=== PATIENT | male | born 1960 ===

== ENCOUNTER 2018-05-15 16:32 | Inpatient (IN) | payer MEDICARE, MEDICAID ==
[2018-05-15 16:48] VITALS: BMI 43.1
--- NOTE | 2018-05-15 17:34 | C.PDOC ---
History Of Present Illness 57 y/o male with history of HTN, Heart disease with 11 stents and High cholesterol presents to ED sent by Dr. Chu for evaluation of increased confusion. As per patient uses AC remote to turn off tv, is off balance when walking and has redness to right lower leg. Patient denies recent trauma, fever, vomiting, diarrhea, abdominal pain or any other complaints at this time. Time Seen by Provider: 05/15/18 16:50 Chief Complaint (Nursing): Altered Mental Status History Per: Patient History/Exam Limitations: None Onset/Duration Of Symptoms: Days Current Symptoms Are (Timing): Still Present Past Medical History Reviewed: Historical Data, Nursing Documentation, Vital Signs Vital Signs: Last Vital Signs Temp 98.9 F 05/15/18 16:48 Pulse 90 05/15/18 16:48 Resp 18 05/15/18 16:48 BP 130/83 05/15/18 16:48 Pulse Ox 98 05/15/18 18:31 - Medical History PMH: Asthma, CHF, Diabetes, Fractures (fx tibia fibula l,right shoulder sx,rib fx), HTN, Hypercholesterolemia, Hypothyroidism, Peripheral Edema Surgical History: Appendectomy, Coronary Stent (x10 +1 = 11 stents.) - [facility] Procedures APPLICATION OF SPLINT (10/30/13) CORONAR ARTERIOGR-2 CATH (11/15/14) INSERTION OF ONE VASCULAR STENT (11/15/14) INSERTION OF THREE VASCULAR STENTS (08/25/14) INSRT OF DRUG-ELUTING CORON ARTERY STENTS(S) (11/15/14) LEFT HEART CARDIAC CATH (11/15/14) LT HEART ANGIOCARDIOGRAM (11/15/14) PERCUTANEOUS TRANSLUMINAL CORONARY ANGIOPLASTY [PTCA] (11/15/14) PROCEDURE ON SINGLE VESSEL (11/15/14) PROCEDURE ON TWO VESSELS (08/25/14) RT HEART CARDIAC CATH (11/02/04) Family History: States: CAD - Social History Hx Tobacco Use: No Hx Alcohol Use: No Hx Substance Use: No - Immunization History Hx Tetanus Toxoid Vaccination: No Hx Influenza Vaccination: Yes Review Of Systems Musculoskeletal: Positive for: Leg Pain (redness) Neurological: Positive for: Confusion Physical Exam - Physical Exam Appears: Non-toxic, No Acute Distress Skin: Warm, Dry, No Rash, Other (hyperpigmentation and erythema to right lower tib/fib region) Head: Atraumatic, Normacephalic Eye(s): bilateral: Normal Inspection Oral Mucosa: Moist Cardiovascular: Rhythm Regular Respiratory: Normal Breath Sounds, No Rales, No Rhonchi, No Wheezing Gastrointestinal/Abdominal: Soft, No Tenderness, No Guarding, No Rebound Pulses: Right Dorsalis Pedis: Normal Neurological/Psych: Oriented x3, Normal Speech, Normal Cognition, Normal Motor, Normal Sensation ED Course And Treatment - Laboratory Results Result Diagrams: 05/15/18 18:00 05/15/18 18:00 ECG: Interpreted By Me, Viewed By Me ECG Rhythm: Sinus Rhythm Interpretation Of ECG: NSR @88 BPM, Q-wave on lead 3 AVF Rate From EC (BPM) O2 Sat by Pulse Oximetry: 98 (RA) Pulse Ox Interpretation: Normal Medical Decision Making Medical Decision Making: Assessment: Confusion, Cellulitis Progress: Spoke to Dr. Bergeron will admit patient Disposition Discussed With DrCharley: Ventura Bergeron Jr. Doctor Will See Patient In The: Hospital Counseled Patient/Family Regarding: Studies Performed, Diagnosis - Disposition Disposition: HOSPITALIZED Disposition Time: 18:30 Condition: FAIR Forms: [facility] (Kazakh) - Clinical Impression Clinical Impression: Confusion, Cellulitis - Scribe Statement The provider has reviewed the documentation as recorded by the Scribjenny Sykes All medical record entries made by the Masonibjenny were at my direction and personally dictated by me. I have reviewed the chart and agree that the record accurately reflects my personal performance of the history, physical exam, medical decision making, and the department course for this patient. I have also personally directed, reviewed, and agree with the discharge instructions and disposition.
--- NOTE | 2018-05-15 17:58 | RAD ---
HISTORY: SOB COMPARISON: None available. TECHNIQUE: Chest PA and lateral FINDINGS: Examination limited by habitus. LUNGS: Prominent interstitial markings may reflect vascular crowding due to hypoinflation versus mild pulmonary venous congestion. No focal consolidation. Please note that chest x-ray has limited sensitivity for the detection of pulmonary masses. PLEURA: No significant pleural effusion identified. No definite pneumothorax . CARDIOVASCULAR: Heart size appears within normal limits. OSSEOUS STRUCTURES: Degenerative changes. VISUALIZED UPPER ABDOMEN: Unremarkable. OTHER FINDINGS: None. IMPRESSION: Prominent interstitial markings may reflect vascular crowding due to hypoinflation versus mild pulmonary venous congestion.
[2018-05-15 18:04] LABS: BASO % 0.7 % (0.0-2.0); EOS # 0.1 K/uL (0.0-0.7); LYMPH # 1.6 K/uL (1.0-4.3); MONO # 0.8 K/uL (0.0-0.8); WHITE BLOOD COUNT 5.9 K/uL (4.8-10.8)
--- NOTE | 2018-05-15 18:07 | RAD ---
PROCEDURE: Right Foot Radiographs. HISTORY: redness to foot COMPARISON: None available. FINDINGS: BONES: Degenerative changes. No acute displaced fracture. JOINTS: No dislocation. SOFT TISSUES: Soft tissue swelling. No evidence of radiopaque foreign body. OTHER FINDINGS: None. IMPRESSION: Degenerative changes. Soft tissue swelling.
[2018-05-15 18:11] LABS: EOS % 1.8 % (0.0-4.0); HEMOGLOBIN 13.7 g/dL (12.0-18.0); LYMPH % 27.4 % (20.0-40.0); MEAN CELL VOLUME 91.5 fL (80.0-94.0); MEAN CORPUSCULAR HEMOGLOBIN 32.1 pg (27.0-31.0); MEAN CORPUSCULAR HGB CONC 35.1 g/dL (33.0-37.0); MEAN PLATELET VOLUME 9.6 fL (7.2-11.7); MONO % 13.3 % (0.0-10.0); NEUT # 3.4 K/uL (1.8-7.0); NEUT % 56.8 % (50.0-75.0); NRBC % 0.1 % (0.0-2.0); RBC 4.28 Mil/uL (4.40-5.90); RED CELL DISTRIBUTION WIDTH 14.3 % (11.5-14.5)
--- NOTE | 2018-05-15 18:12 | RAD ---
PROCEDURE: Radiographs of the right tibia and fibula. HISTORY: redness to foot COMPARISON: None available. TECHNIQUE: Frontal and lateral views obtained. FINDINGS: BONES: No acute displaced fracture. JOINT SPACES: No dislocation. OTHER FINDINGS: Soft tissue edema. No evidence of radiopaque foreign body. IMPRESSION: Soft tissue edema. No acute displaced fracture identified. If symptoms persist, or if there is continued clinical concern, x-ray follow-up in 7-10 days should be considered.
[2018-05-15 18:16] LABS: ALB/GLOB RATIO 0.8 (1.0-2.1); ALBUMIN 3.5 g/dL (3.5-5.0); ALT/SGPT 48 U/L (21-72); AST/SGOT 61 U/L (17-59); BLOOD UREA NITROGEN 9 mg/dL (9-20); CALCIUM 8.9 mg/dl (8.6-10.4); GFR NON-AFRICAN AMERICAN > 60
--- NOTE | 2018-05-15 18:16 | CT ---
Date of service: 05/15/2018 PROCEDURE: CT HEAD WITHOUT CONTRAST. HISTORY: confusion COMPARISON: None available. TECHNIQUE: Axial computed tomography images were obtained through the head/brain without intravenous contrast. Radiation dose: Total exam DLP = 973.93 mGy-cm. This CT exam was performed using one or more of the following dose reduction techniques: Automated exposure control, adjustment of the mA and/or kV according to patient size, and/or use of iterative reconstruction technique. FINDINGS: HEMORRHAGE: No intracranial hemorrhage. BRAIN: No mass effect or edema. Dense intracranial atherosclerosis. The burns-white matter differentiation appears intact. Please note that MRI with diffusion imaging is more sensitive in the detection of acute ischemic event. VENTRICLES: No hydrocephalus. CALVARIUM: Unremarkable. PARANASAL SINUSES: Unremarkable as visualized. No significant inflammatory changes. MASTOID AIR CELLS: Unremarkable as visualized. No inflammatory changes. OTHER FINDINGS: None. IMPRESSION: No acute intracranial pathology identified.
[2018-05-15 18:28] LABS: B-TYPE NATRIURETIC PEPTIDE 136 pg/mL (0-900)
[2018-05-15 19:26] LABS: URIC ACID 3.6 mg/dL (3.5-8.5)
[2018-05-15 19:28] LABS: SQUAMOUS EPITHIAL < 1 /hpf (0-5); URINE BILIRUBIN NEGATIVE (NEGATIVE); URINE BLOOD NEGATIVE (NEGATIVE); URINE CLARITY Clear (Clear); URINE COLOR Yellow (YELLOW); URINE GLUCOSE (UA) 3+ mg/dL (Normal); URINE LEUKOCYTE ESTERASE NEG Leu/uL (Negative); URINE PROTEIN NEGATIVE (NEGATIVE)
[2018-05-15 19:53] LABS: HEPATITIS B SURFACE AG Negative (NEGATIVE)
[2018-05-15 19:58] LABS: HEPATITIS A IGM NEGATIVE (NEGATIVE); HEPATITIS B CORE AB NEGATIVE (NEGATIVE)
[2018-05-15 20:10] LABS: HEPATITIS C ANTIBODY NEGATIVE (NEGATIVE)
[2018-05-15 20:23] LABS: BARBITURATES, UR NEGATIVE (NEGATIVE); BENZODIAZEPINES, UR NEGATIVE (NEGATIVE); OPIATES, UR NEGATIVE (NEGATIVE); PHENCYCLIDINE, UR NEGATIVE (NEGATIVE)
--- NOTE | 2018-05-15 20:39 | CP.PCM.CON ---
History of Present Illness - History of Present Illness History of Present Illness: 57 y/o male with history of HTN, Heart disease with 11 stents and High cholesterol presents to ED sent by Dr. Chu for evaluation of increased confusion. As per patient uses AC remote to turn off tv, is off balance when walking and has redness to right lower leg. Patient denies recent trauma, fever, vomiting, diarrhea, abdominal pain or any other complaints at this time. referred for id eval for cellulitis r/o sepsis cultures sent IV antibiotics started ammonia level elevated extensive hx - Medical History PMH: Asthma, CHF, Diabetes, Fractures (fx tibia fibula l,right shoulder sx,rib fx), HTN, Hypercholesterolemia, Hypothyroidism, Peripheral Edema Surgical History: Appendectomy, Coronary Stent (x10 +1 = 11 stents.) - [facility] Procedures APPLICATION OF SPLINT (10/30/13) CORONAR ARTERIOGR-2 CATH (11/15/14) INSERTION OF ONE VASCULAR STENT (11/15/14) INSERTION OF THREE VASCULAR STENTS (08/25/14) INSRT OF DRUG-ELUTING CORON ARTERY STENTS(S) (11/15/14) LEFT HEART CARDIAC CATH (11/15/14) LT HEART ANGIOCARDIOGRAM (11/15/14) PERCUTANEOUS TRANSLUMINAL CORONARY ANGIOPLASTY [PTCA] (11/15/14) PROCEDURE ON SINGLE VESSEL (11/15/14) PROCEDURE ON TWO VESSELS (08/25/14) RT HEART CARDIAC CATH (11/02/04) Past Patient History - Infectious Disease Hx of Infectious Diseases: None - Tetanus Immunizations Tetanus Immunization: Unknown - Past Medical History & Family History Past Medical History?: Yes - Past Social History Smoking Status: Never Smoked - CARDIAC Hx Congestive Heart Failure: Yes Hx Hypercholesterolemia: Yes Hx Hypertension: Yes Hx Peripheral Edema: Yes - PULMONARY Hx Asthma: Yes - NEUROLOGICAL Hx Paralysis: No - HEENT Hx HEENT Problems: No - RENAL Hx Chronic Kidney Disease: No - ENDOCRINE/METABOLIC Hx Hypothyroidism: Yes - HEMATOLOGICAL/ONCOLOGICAL Hx Blood Transfusions: No Hx Blood Transfusion Reaction: No - INTEGUMENTARY Hx Dermatological Problems: No Other/Comment: ble multiple skin discolorations - MUSCULOSKELETAL/RHEUMATOLOGICAL Hx Fractures: Yes (fx tibia fibula l,right shoulder sx,rib fx) - GASTROINTESTINAL Hx Gastrointestinal Disorders: Yes (obese) - GENITOURINARY/GYNECOLOGICAL Hx Genitourinary Disorders: No - PSYCHIATRIC Hx Substance Use: No - SURGICAL HISTORY Hx Appendectomy: Yes Hx Coronary Stent: Yes (x10 +1 = 11 stents.) - ANESTHESIA Hx Anesthesia: Yes Hx Anesthesia Reactions: No Hx Malignant Hyperthermia: No Meds Allergies/Adverse Reactions: Allergies Allergy/AdvReac Type Severity Reaction Status Date / Time No Known Allergies Allergy Verified 05/15/18 16:45 Results - Vital Signs Recent Vital Signs: Last Vital Signs Temp 98.3 F 05/15/18 20:32 Pulse 83 05/15/18 20:32 Resp 16 05/15/18 20:32 BP 139/71 05/15/18 20:32 Pulse Ox 98 05/15/18 20:32 - Labs Result Diagrams: 05/15/18 18:00 05/15/18 18:00 Labs: Laboratory Results - last 24 hr 05/15/18 05/15/18 05/15/18 18:00 18:00 18:00 WBC 5.9 RBC 4.28 L Hgb 13.7 Hct 39.2 MCV 91.5 MCH 32.1 H MCHC 35.1 RDW 14.3 Plt Count 108 L MPV 9.6 Neut % (Auto) 56.8 Lymph % (Auto) 27.4 [place] % (Auto) 13.3 H Eos % (Auto) 1.8 Baso % (Auto) 0.7 Neut # (Auto) 3.4 Lymph # (Auto) 1.6 [place] # (Auto) 0.8 Eos # (Auto) 0.1 Baso # (Auto) 0.0 ESR 72 H Sodium 140 Potassium 4.6 Chloride 109 H Carbon Dioxide 23 Anion Gap 13 BUN 9 Creatinine 0.7 L Est GFR ( Amer) > 60 Est GFR (Non-Af Amer) > 60 Random Glucose 264 H Uric Acid Calcium 8.9 Total Bilirubin 1.1 AST 61 H ALT 48 Alkaline Phosphatase 105 Ammonia 96 H Troponin I < 0.0120 C-Reactive Protein NT-Pro-B Natriuret Pep 136 Total Protein 7.8 Albumin 3.5 Globulin 4.3 H Albumin/Globulin Ratio 0.8 L Triglycerides Cholesterol LDL Cholesterol Direct HDL Cholesterol TSH 3rd Generation 1.27 Urine Color Urine Clarity Urine pH Ur Specific [place] Urine Protein Urine Glucose (UA) Urine Ketones Urine Blood Urine Nitrate Urine Bilirubin Urine Urobilinogen Ur Leukocyte Esterase Urine WBC (Auto) Urine RBC (Auto) Ur Squamous Epith Cells Urine Opiates Screen Urine Methadone Screen Ur Barbiturates Screen Ur Phencyclidine Scrn Ur Amphetamines Screen U Benzodiazepines Scrn U Oth Cocaine Metabols U Cannabinoids Screen Alcohol, Quantitative Hepatitis A IgM Ab Hep Bs Antigen Hep B Core IgM Ab Hepatitis C Antibody 05/15/18 05/15/18 05/15/18 18:44 18:44 19:12 WBC RBC Hgb Hct MCV MCH MCHC RDW Plt Count MPV Neut % (Auto) Lymph % (Auto) [place] % (Auto) Eos % (Auto) Baso % (Auto) Neut # (Auto) Lymph # (Auto) [place] # (Auto) Eos # (Auto) Baso # (Auto) ESR Sodium Potassium Chloride Carbon Dioxide Anion Gap BUN Creatinine Est GFR ( Amer) Est GFR (Non-Af Amer) Random Glucose Uric Acid 3.6 Calcium Total Bilirubin AST ALT Alkaline Phosphatase Ammonia Troponin I C-Reactive Protein 14.50 H NT-Pro-B Natriuret Pep Total Protein Albumin Globulin Albumin/Globulin Ratio Triglycerides 105 Cholesterol 172 LDL Cholesterol Direct 100 HDL Cholesterol 37 TSH 3rd Generation Urine Color Yellow Urine Clarity Clear Urine pH 6.0 Ur Specific [place] 1.021 Urine Protein Negative Urine Glucose (UA) 3+ H Urine Ketones Negative Urine Blood Negative Urine Nitrate Negative Urine Bilirubin Negative Urine Urobilinogen 4.0 Ur Leukocyte Esterase Neg Urine WBC (Auto) < 1 Urine RBC (Auto) 1 Ur Squamous Epith Cells < 1 Urine Opiates Screen Urine Methadone Screen Ur Barbiturates Screen Ur Phencyclidine Scrn Ur Amphetamines Screen U Benzodiazepines Scrn U Oth Cocaine Metabols U Cannabinoids Screen Alcohol, Quantitative Hepatitis A IgM Ab Negative Hep Bs Antigen Negative Hep B Core IgM Ab Negative Hepatitis C Antibody Negative 05/15/18 05/15/18 19:12 19:13 WBC RBC Hgb Hct MCV MCH MCHC RDW Plt Count MPV Neut % (Auto) Lymph % (Auto) [place] % (Auto) Eos % (Auto) Baso % (Auto) Neut # (Auto) Lymph # (Auto) [place] # (Auto) Eos # (Auto) Baso # (Auto) ESR Sodium Potassium Chloride Carbon Dioxide Anion Gap BUN Creatinine Est GFR ( Amer) Est GFR (Non-Af Amer) Random Glucose Uric Acid Calcium Total Bilirubin AST ALT Alkaline Phosphatase Ammonia Troponin I C-Reactive Protein NT-Pro-B Natriuret Pep Total Protein Albumin Globulin Albumin/Globulin Ratio Triglycerides Cholesterol LDL Cholesterol Direct HDL Cholesterol TSH 3rd Generation Urine Color Urine Clarity Urine pH Ur Specific [place] Urine Protein Urine Glucose (UA) Urine Ketones Urine Blood Urine Nitrate Urine Bilirubin Urine Urobilinogen Ur Leukocyte Esterase Urine WBC (Auto) Urine RBC (Auto) Ur Squamous Epith Cells Urine Opiates Screen Negative Urine Methadone Screen Negative Ur Barbiturates Screen Negative Ur Phencyclidine Scrn Negative Ur Amphetamines Screen Negative U Benzodiazepines Scrn Negative U Oth Cocaine Metabols Negative U Cannabinoids Screen Negative Alcohol, Quantitative < 10 Hepatitis A IgM Ab Hep Bs Antigen Hep B Core IgM Ab Hepatitis C Antibody
[2018-05-15] MEDS ORDERED: ceFAZolin 1 gm in NS 1 GM/100 ML BAG IVPB ONE (20:59)
[2018-05-15] MEDS: ceFAZolin IV 1 gm in Dextrose 1 GM/50 ML BAG IVPB SCH (21:00)
[2018-05-15] MEDS ORDERED: Glucagon Recombinant 1 mg Inj IM PRN (21:06)
[2018-05-15] MEDS ORDERED: Dextrose 50% SYRINGE Inj (50 ml) IVP PRN (21:06)
--- NOTE | 2018-05-15 21:11 | CP.PCM.HP ---
History of Present Illness - History of Present Illness History of Present Illness: Majority of history if obtained from patient's , Dylan, and brother-in- law. Jeni Thompson is a 57 yo male with a history of CAD s/p 11 stents, T2DM, CHF , HTN, HLD, and hypothyroid who presents with AMS. The patient also has redness and swelling of his lower right leg. Patient's family states that the patient has been very lethargic, sleeping 21 hours per day. At this point, he is barely able to feed himself. He is also having significant memory loss and calling objects by the wrong name. He has been talking very slowing and not making sense. He frequently wanders both in and outside the house. The patient hits his legs on things while walking, which is what the family suspects happened to his RLE. 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 Of note, the patient's son was recently in a bad MVA approximately 1.5 months ago and the patient's sister of a stoke about 3 weeks ago. stats patient has been compliant with his meds because she gives them to him and watches him swallow. On exam, patient is able to follow some commands. His movements are very slow. He can give some one word answers to questions. He is oriented to person only. The patient was recently admitted on 05/05/18 for the same complaint. This was soon after his son was in the MVA and subsequently in a coma. He was seen by neurology (Dr. Jay). EEG at the time showed slowing, and patient was started on Keppra. Carotid u/s was unremarkable. CT and MRI of head were unremarkable as well. AMS resolved by discharge and was attributed to hypoglycemia +/- seizure. PMH: CAD s/p 11 stents T2DM CHF HTN HLD hypothyroid PSH: Cardiac stents 10+1=11 Appendectomy Meds: Keppra 500 mg PO BID Lantus 50 units AMHS Metformin 1000 mg PO BID Glipizide 10 mg PO AMHS ASA 81 Plavix 75 mg PO daily Atenolol 50 mg PO daily Lasix 40 mg PO daily Nexium 40 mg PO daily Synthroid 50 mcg PO daily Welchol 625 mg PO TID [place] 3 500 mg PO BID FH: mother- breast cancer, dementia father- CVA (hemiplegia) sister- 3 weeks ago from CVA SH: lives with works as tank driver- unable to work for past 2 weeks denies alcohol, tobacco, drugs PMD: Dr. Abernathy Neuro: Dr. Chu Endocrine: Rudy Cardio: Dr. Bell Medical proxy: Dylan Marley [phone] No advanced directive Full code Present on Admission - Present on Admission Any Indicators Present on Admission: Yes History of DVT/PE: No History of Uncontrolled Diabetes: Yes Urinary Catheter: No Decubitus Ulcer Present: No History Surgical Site Infection Following: None Review of Systems - Review of Systems Systems not reviewed;Unavailable: Altered Mental Status Past Patient History - Infectious Disease Hx of Infectious Diseases: None - Tetanus Immunizations Tetanus Immunization: Unknown - Past Medical History & Family History Past Medical History?: Yes Pertinent Family History: mother- dementia father and sister- CVA - Past Social History Smoking Status: Never Smoked Chewing Tobacco Use: No Cigar Use: No Alcohol: None Drugs: Denies Home Situation {Lives}: With Family () Domestic Violence: Negative - CARDIAC Hx Cardiac Disorders: Yes Hx Circulatory Problems: Yes (CAD s/p 11 stents) Hx Congestive Heart Failure: Yes Hx Hypercholesterolemia: Yes Hx Hypertension: Yes Hx Peripheral Edema: Yes - PULMONARY Hx Respiratory Disorders: No - NEUROLOGICAL Hx Paralysis: No - HEENT Hx HEENT Problems: No - RENAL Hx Chronic Kidney Disease: No - ENDOCRINE/METABOLIC Hx Endocrine Disorders: Yes Hx Diabetes Mellitus Type 2: Yes Hx Hypothyroidism: Yes - HEMATOLOGICAL/ONCOLOGICAL Hx Blood Transfusions: No Hx Blood Transfusion Reaction: No - INTEGUMENTARY Hx Dermatological Problems: No Other/Comment: ble multiple skin discolorations - MUSCULOSKELETAL/RHEUMATOLOGICAL Hx Fractures: Yes (fx tibia fibula l,right shoulder sx,rib fx) - GASTROINTESTINAL Hx Gastrointestinal Disorders: Yes (obese) - GENITOURINARY/GYNECOLOGICAL Hx Genitourinary Disorders: No - PSYCHIATRIC Hx Substance Use: No - SURGICAL HISTORY Hx Appendectomy: Yes Hx Coronary Stent: Yes (x10 +1 = 11 stents.) - ANESTHESIA Hx Anesthesia: Yes Hx Anesthesia Reactions: No Hx Malignant Hyperthermia: No Meds Allergies/Adverse Reactions: Allergies Allergy/AdvReac Type Severity Reaction Status Date / Time No Known Allergies Allergy Verified 05/15/18 16:45 Physical Exam - Constitutional Appears: No Acute Distress Additional comments: lethargic - Head Exam Head Exam: ATRAUMATIC, NORMAL INSPECTION, NORMOCEPHALIC - Eye Exam Eye Exam: Normal appearance, PERRL. absent: EOMI (patient unable to follow commands) - ENT Exam ENT Exam: Mucous Membranes Moist, Normal Exam - Neck Exam Neck exam: Positive for: Normal Inspection - Respiratory Exam Respiratory Exam: Clear to Auscultation Bilateral, NORMAL BREATHING PATTERN - Cardiovascular Exam Cardiovascular Exam: REGULAR RHYTHM, +S1, +S2 - GI/Abdominal Exam GI & Abdominal Exam: Normal Bowel Sounds, Soft. absent: Tenderness Additional comments: obese - Rectal Exam Rectal Exam: Deferred - Extremities Exam Additional comments: RLE errythema, non-pitting edema, tenderness to palpation, warmth Healing lesions to b/l LEs - Back Exam Back exam: NORMAL INSPECTION - Neurological Exam Neurological exam: Alert, Altered Additional comments: no asterixis, no tremors, oriented to person only - Psychiatric Exam Additional comments: AMS - Skin Skin Exam: Dry, Intact, Normal Color, Warm Results - Vital Signs Recent Vital Signs: Last Vital Signs Temp 98.3 F 05/15/18 20:32 Pulse 83 05/15/18 20:32 Resp 16 05/15/18 20:32 BP 139/71 05/15/18 20:32 Pulse Ox 98 05/15/18 20:32 - Labs Result Diagrams: 05/15/18 18:00 05/15/18 18:00 Labs: Laboratory Results - last 24 hr 05/15/18 05/15/18 05/15/18 18:00 18:00 18:00 WBC 5.9 RBC 4.28 L Hgb 13.7 Hct 39.2 MCV 91.5 MCH 32.1 H MCHC 35.1 RDW 14.3 Plt Count 108 L MPV 9.6 Neut % (Auto) 56.8 Lymph % (Auto) 27.4 [place] % (Auto) 13.3 H Eos % (Auto) 1.8 Baso % (Auto) 0.7 Neut # (Auto) 3.4 Lymph # (Auto) 1.6 [place] # (Auto) 0.8 Eos # (Auto) 0.1 Baso # (Auto) 0.0 ESR 72 H Sodium 140 Potassium 4.6 Chloride 109 H Carbon Dioxide 23 Anion Gap 13 BUN 9 Creatinine 0.7 L Est GFR ( Amer) > 60 Est GFR (Non-Af Amer) > 60 Random Glucose 264 H Uric Acid Calcium 8.9 Total Bilirubin 1.1 AST 61 H ALT 48 Alkaline Phosphatase 105 Ammonia 96 H Troponin I < 0.0120 C-Reactive Protein NT-Pro-B Natriuret Pep 136 Total Protein 7.8 Albumin 3.5 Globulin 4.3 H Albumin/Globulin Ratio 0.8 L Triglycerides Cholesterol LDL Cholesterol Direct HDL Cholesterol TSH 3rd Generation 1.27 Urine Color Urine Clarity Urine pH Ur Specific [place] Urine Protein Urine Glucose (UA) Urine Ketones Urine Blood Urine Nitrate Urine Bilirubin Urine Urobilinogen Ur Leukocyte Esterase Urine WBC (Auto) Urine RBC (Auto) Ur Squamous Epith Cells Urine Opiates Screen Urine Methadone Screen Ur Barbiturates Screen Ur Phencyclidine Scrn Ur Amphetamines Screen U Benzodiazepines Scrn U Oth Cocaine Metabols U Cannabinoids Screen Alcohol, Quantitative Hepatitis A IgM Ab Hep Bs Antigen Hep B Core IgM Ab Hepatitis C Antibody 05/15/18 05/15/18 05/15/18 18:44 18:44 19:12 WBC RBC Hgb Hct MCV MCH MCHC RDW Plt Count MPV Neut % (Auto) Lymph % (Auto) [place] % (Auto) Eos % (Auto) Baso % (Auto) Neut # (Auto) Lymph # (Auto) [place] # (Auto) Eos # (Auto) Baso # (Auto) ESR Sodium Potassium Chloride Carbon Dioxide Anion Gap BUN Creatinine Est GFR ( Amer) Est GFR (Non-Af Amer) Random Glucose Uric Acid 3.6 Calcium Total Bilirubin AST ALT Alkaline Phosphatase Ammonia Troponin I C-Reactive Protein 14.50 H NT-Pro-B Natriuret Pep Total Protein Albumin Globulin Albumin/Globulin Ratio Triglycerides 105 Cholesterol 172 LDL Cholesterol Direct 100 HDL Cholesterol 37 TSH 3rd Generation Urine Color Yellow Urine Clarity Clear Urine pH 6.0 Ur Specific [place] 1.021 Urine Protein Negative Urine Glucose (UA) 3+ H Urine Ketones Negative Urine Blood Negative Urine Nitrate Negative Urine Bilirubin Negative Urine Urobilinogen 4.0 Ur Leukocyte Esterase Neg Urine WBC (Auto) < 1 Urine RBC (Auto) 1 Ur Squamous Epith Cells < 1 Urine Opiates Screen Urine Methadone Screen Ur Barbiturates Screen Ur Phencyclidine Scrn Ur Amphetamines Screen U Benzodiazepines Scrn U Oth Cocaine Metabols U Cannabinoids Screen Alcohol, Quantitative Hepatitis A IgM Ab Negative Hep Bs Antigen Negative Hep B Core IgM Ab Negative Hepatitis C Antibody Negative 05/15/18 05/15/18 19:12 19:13 WBC RBC Hgb Hct MCV MCH MCHC RDW Plt Count MPV Neut % (Auto) Lymph % (Auto) [place] % (Auto) Eos % (Auto) Baso % (Auto) Neut # (Auto) Lymph # (Auto) [place] # (Auto) Eos # (Auto) Baso # (Auto) ESR Sodium Potassium Chloride Carbon Dioxide Anion Gap BUN Creatinine Est GFR ( Amer) Est GFR (Non-Af Amer) Random Glucose Uric Acid Calcium Total Bilirubin AST ALT Alkaline Phosphatase Ammonia Troponin I C-Reactive Protein NT-Pro-B Natriuret Pep Total Protein Albumin Globulin Albumin/Globulin Ratio Triglycerides Cholesterol LDL Cholesterol Direct HDL Cholesterol TSH 3rd Generation Urine Color Urine Clarity Urine pH Ur Specific [place] Urine Protein Urine Glucose (UA) Urine Ketones Urine Blood Urine Nitrate Urine Bilirubin Urine Urobilinogen Ur Leukocyte Esterase Urine WBC (Auto) Urine RBC (Auto) Ur Squamous Epith Cells Urine Opiates Screen Negative Urine Methadone Screen Negative Ur Barbiturates Screen Negative Ur Phencyclidine Scrn Negative Ur Amphetamines Screen Negative U Benzodiazepines Scrn Negative U Oth Cocaine Metabols Negative U Cannabinoids Screen Negative Alcohol, Quantitative < 10 Hepatitis A IgM Ab Hep Bs Antigen Hep B Core IgM Ab Hepatitis C Antibody Assessment & Plan - Assessment and Plan (Free Text) Assessment: Patient is a 57 yo male who presented with AMS. Recent admission for same complaint- patient was discharged on Keppra. No tonic-clonic seizure activity witnessed. This admission, patient's ammonia is elevated without history of alcohol use or hepatitis. Plan: AMS - CT head: negative for acute pathology - UDS and BAL negative - Echo 05/06/18: EF 55% - Hepatitis panel negative (AST 61, ALT 48) - Ammonia: 96 - Lactulose 20 mg PO QHS - F/u ammonia in AM - F/u MRI brain (05/06/18 unremarkable) - F/u EEG - F/u carotid u/s (05/06/18 unremarkable) - F/u RF, SUSAN - F/u vit D - Swallow eval - Neurology consulted (Dr. Chu) - Psychiatry consulted (Dr. Ortez) RLE cellulits - R foot and tibia/fibula XR: soft tissue swelling - CRP 14.5, ESR 72 - Uric acid 3.6 - F/u RLE venous Doppler - F/u blood Cx - Ancef 1 g IV q8hrs - Vancomycin 1 g IV q24hrs - ID consulted (Dr. Noyola) CAD s/p 11 stents - Cardiac cath 11/07/17 - Troponin negative - ASA 81 mg PO daily - Plavix 75 mg PO daily - Cardiology consulted (Dr. Patel) T2DM, chronic, poorly controlled - Glipizide 10 mg PO BID - ISS - Hypoglycemia protocol CHF - CXR: Prominent interstitial markings may reflect vascular crowding due to hypoinflation versus mild pulmonary venous congestion. - BNP: 136 - Lasix 40 mg PO BID HTN, chronic - Vitals q4hrs - Atenolol 50 mg PO daily HLD - Home med: Welchol 625 mg TID Hypothyroidism - TSH 1.27 - Synthroid 50 mcg PO daily PT consult OT consult IVF: not indicated GI ppx: Protonix 40 mg IV daily VTE ppx: SCD on L leg, ASA and Plavix Diet: swallow eval-> heart healthy (low carb, low sodium) Code status: full code
[2018-05-15] MEDS: Vancomycin 1 gm/NS 200 ml 1 GM/200 ML BAG IVPB SCH (22:23)
[2018-05-15] MEDS: (Novolog) Insulin Aspart, Recombinant 100 u/ml 10 ml vial SC SCH (22:25)
[2018-05-15] MEDS ORDERED: (Novolog) Insulin Aspart, Recombinant 100 u/ml 10 ml vial ONE (22:32)
[2018-05-15 22:55] LABS: INR 1.4; PROTHROMBIN TIME 15.7 SECONDS (9.7-12.2)
[2018-05-16] MEDS: ceFAZolin IV 1 gm in Dextrose 1 GM/50 ML BAG IVPB SCH ×3 (05:54→20:24)
[2018-05-16] MEDS ORDERED: Levothyroxine 50 MCG TAB PO SCH (06:30)
[2018-05-16 07:18] LABS: BASO # 0.1 K/uL (0.0-0.2); BASO % 1.1 % (0.0-2.0); EOS # 0.1 K/uL (0.0-0.7); EOS % 2.2 % (0.0-4.0); HEMOGLOBIN 12.3 g/dL (12.0-18.0); LYMPH # 1.5 K/uL (1.0-4.3); LYMPH % 29.1 % (20.0-40.0); MEAN CELL VOLUME 92.9 fL (80.0-94.0); MEAN CORPUSCULAR HGB CONC 34.5 g/dL (33.0-37.0); MONO # 0.9 K/uL (0.0-0.8); MONO % 16.7 % (0.0-10.0); NEUT # 2.7 K/uL (1.8-7.0); NEUT % 50.9 % (50.0-75.0); NRBC % 0.1 % (0.0-2.0); RBC 3.85 Mil/uL (4.40-5.90); RED CELL DISTRIBUTION WIDTH 14.7 % (11.5-14.5); WHITE BLOOD COUNT 5.3 K/uL (4.8-10.8)
[2018-05-16 07:25] LABS: ALB/GLOB RATIO 0.8 (1.0-2.1); ALBUMIN 3.1 g/dL (3.5-5.0); ALT/SGPT 37 U/L (21-72); AST/SGOT 52 U/L (17-59); BLOOD UREA NITROGEN 9 mg/dL (9-20); CALCIUM 8.6 mg/dl (8.6-10.4); GFR NON-AFRICAN AMERICAN > 60
[2018-05-16 07:46] LABS: HEPATITIS B SURFACE AG Negative (NEGATIVE)
[2018-05-16 07:51] LABS: HEPATITIS A IGM NEGATIVE (NEGATIVE); HEPATITIS B CORE AB NEGATIVE (NEGATIVE)
[2018-05-16 08:03] LABS: HEPATITIS C ANTIBODY NEGATIVE (NEGATIVE)
[2018-05-16 08:14] VITALS: RESP 20
[2018-05-16] MEDS: (Novolog) Insulin Aspart, Recombinant 100 u/ml 10 ml vial SC SCH ×4 (08:44→22:43)
--- NOTE | 2018-05-16 09:16 | CP.PCM.PCO ---
Physician Communication Note - Physician Communication Note Physician Communication Note: Delirious bc of ammonia etc Can't assess for depression Pls reconsult later
[2018-05-16] MEDS ORDERED: Enoxaparin 40 mg Syringe SC SCH (10:00)
[2018-05-16] MEDS ORDERED: (Lantus) Insulin Glargine, Recombinant SC SCH (10:00)
[2018-05-16] MEDS: (Lantus) Insulin Glargine, Recombinant SC SCH ×2 (10:53→22:43)
[2018-05-16] MEDS: Pantoprazole 40 mg EC Tab PO SCH (10:53)
--- NOTE | 2018-05-16 14:18 | CP.PCM.PN ---
Subjective - Date & Time of Evaluation Date of Evaluation: 05/16/18 Time of Evaluation: 14:15 - Subjective Subjective: PGYIII progress note for Dr. Bergeron Pt seen and examined at bedside. Pt is sitting comfortably in bed and eating lunch. Patient is A&Ox 3 and is answering questions very slowly. Patient only complains of pain in R LE. He states, he is not sure when the swelling and pain began in the LE. Patient denies having any CP, SOB, abd pain, N/V/D/C, F/ C. Objective - Vital Signs/Intake and Output Vital Signs (last 24 hours): Temp Pulse Resp BP Pulse Ox 98.4 F 84 20 146/81 98 05/16/18 00:45 05/16/18 00:45 05/16/18 00:45 05/16/18 10:52 05/16/18 00:45 - Medications Medications: Current Medications Aspirin (Ecotrin) 81 mg PO DAILY [facility] Last Admin: 05/16/18 10:52 Dose: 81 mg Atenolol (Tenormin) 50 mg PO DAILY [facility] Last Admin: 05/16/18 10:52 Dose: 50 mg Clopidogrel Bisulfate (Plavix) 75 mg PO DAILY [facility] Last Admin: 05/16/18 10:53 Dose: 75 mg Dextrose (Dextrose 50% Inj) 0 ml IVP .STAT PRN; Protocol PRN Reason: Hypoglycemia Protocol Dextrose (Glutose 15) 0 gm PO .ONCE PRN; Protocol PRN Reason: Hypoglycemia Protocol Furosemide (Lasix) 40 mg PO DAILY [facility] Last Admin: 05/16/18 10:52 Dose: 40 mg Glipizide (Glucotrol) 10 mg PO AMHS [facility] Last Admin: 05/16/18 10:52 Dose: 10 mg Glucagon (Glucagen Diagnostic Kit) 0 mg IM .STAT PRN; Protocol PRN Reason: Hypoglycemia Protocol Heparin Sodium (Porcine) (Heparin) 5,000 units SC Q12 [facility] Last Admin: 05/16/18 10:52 Dose: 5,000 units Vancomycin/Sodium Chloride (Vancomycin 1 Gm/Ns 200 Ml) 1 gm in 200 mls @ 133 mls/hr IVPB Q24H [facility] PRN Reason: Protocol Stop: 05/20/18 21:01 Last Admin: 05/15/18 22:23 Dose: 133 mls/hr Cefazolin Sodium/Dextrose (Ancef Iv 1 Gm Duplex) 1 gm in 50 mls @ 100 mls/hr IVPB Q8H [facility] PRN Reason: Protocol Last Admin: 05/16/18 12:35 Dose: 100 mls/hr Dextrose (Dextrose 5% In Water 1000 Ml) 1,000 mls @ 0 mls/hr IV .Q0M PRN; Protocol; Per Protocol PRN Reason: Hypoglycemia Protocol Ibuprofen (Motrin Tab) 400 mg PO Q6 PRN PRN Reason: Pain, Mild (1-3) Insulin Aspart (Novolog) 0 unit SC ACHS [facility] PRN Reason: Protocol Last Admin: 05/16/18 12:35 Dose: 8 unit Insulin Glargine (Lantus) 50 unit SC AMHS [facility] Last Admin: 05/16/18 10:53 Dose: 50 units Lactulose (Enulose) 20 gm PO TID [facility] Last Admin: 05/16/18 13:57 Dose: 20 gm Levetiracetam (Keppra) 500 mg PO BID [facility] Last Admin: 05/16/18 10:52 Dose: 500 mg Levothyroxine Sodium (Synthroid) 75 mcg PO DAILY@0630 [facility] Last Admin: 05/16/18 05:54 Dose: 75 mcg Metformin HCl (Glucophage) 1,000 mg PO BID [facility] Last Admin: 05/16/18 10:52 Dose: 1,000 mg Pantoprazole Sodium (Protonix Ec Tab) 40 mg PO DAILY [facility] Last Admin: 05/16/18 10:53 Dose: 40 mg - Labs Labs: 05/16/18 06:46 05/16/18 06:46 PT 15.7 SECONDS (9.7-12.2) H 05/15/18 22:45 INR 1.4 05/15/18 22:45 - Constitutional Appears: Non-toxic, No Acute Distress - Head Exam Head Exam: ATRAUMATIC, NORMOCEPHALIC - ENT Exam ENT Exam: Mucous Membranes Moist - Respiratory Exam Respiratory Exam: Clear to Ausculation Bilateral, NORMAL BREATHING PATTERN. absent: Rales, Rhonchi, Wheezes - Cardiovascular Exam Cardiovascular Exam: REGULAR RHYTHM, +S1, +S2. absent: Gallop, Rubs, Murmur - GI/Abdominal Exam GI & Abdominal Exam: Soft, Normal Bowel Sounds. absent: Distended, Firm, Guarding, Rigid, Tenderness, Organomegaly - Extremities Exam Extremities Exam: Pedal Edema, Tenderness (R LE ) - Neurological Exam Neurological Exam: Alert, Awake, CN II-XII Intact, Oriented x3 - Psychiatric Exam Psychiatric exam: Normal Affect, Normal Mood - Skin Skin Exam: Dry, Intact, Normal Color, Warm Additional comments: erythema in R LE Assessment and Plan - Assessment and Plan (Free Text) Assessment: Patient is a 57 yo male who presented with AMS. Recent admission for same complaint- patient was discharged on Keppra. No tonic-clonic seizure activity witnessed. This admission, patient's ammonia is elevated without history of alcohol use or liver disease Plan: AMS -2/2 elevated ammonia vs. LYNDSAY from Pickwickian syndrome vs. autoimmune - CT head: negative for acute pathology - MRI results pending from this admission. (MRI from 05/06/18 unremarkable) - UDS and BAL negative - Hepatitis panel negative (AST 61, ALT 48) - Ammonia: 96 on admission. Repeat was 109 today. - F/u EEG - F/u carotid u/s (05/06/18 showed B/L 20-39% proximal ICA stenosis) - F/u RF, SUSAN - F/u vit D - Neurology consulted (Dr. Chu) - Psychiatry consulted (Dr. Ortez) - Pt started on lactulos 20 TID with goal of 2-3 BMs/day RLE cellulits - R foot and tibia/fibula XR: soft tissue swelling - CRP 14.5, ESR 72 - Uric acid 3.6 - F/u RLE venous Doppler - F/u blood Cx - Ancef 1 g IV q8hrs - Vancomycin 1 g IV q24hrs - ID consulted (Dr. Noyola). Dr. Chaparro covering for Dr. Noyola. Recs pending CAD s/p 11 stents - Cardiac cath 11/07/17 - Troponin negative - ASA 81 mg PO daily - Plavix 75 mg PO daily - Cardiology consulted (Dr. Patel) T2DM, chronic, poorly controlled - Glipizide 10 mg PO BID - ISS - Hypoglycemia protocol -HgbA1c 9.4 on 05/05/18 CHF - CXR: Prominent interstitial markings may reflect vascular crowding due to hypoinflation versus mild pulmonary venous congestion. - BNP: 136 - Lasix 40 mg PO BID HTN, chronic - Vitals q4hrs - Atenolol 50 mg PO daily HLD - Home med: Welchol 625 mg TID Hypothyroidism - TSH 1.27 - Synthroid 50 mcg PO daily Thrombocytopenia - Platelets noted to be 102 - Likely 2/2 liver disease vs. hepatosplenomegaly and sequestration - Will continue to monitor Hyperammonemia - Pt started on lactulose 20 mg TID - Will check abd US PT consult OT consult IVF: not indicated GI ppx: Protonix 40 mg PO QD VTE ppx: SCD on L leg, will start heparin q 12 Diet: heart healthy (low carb, low sodium) Code status: full code
--- NOTE | 2018-05-16 15:40 | MRI ---
Date of service: 05/16/2018 PROCEDURE: MRI BRAIN WITHOUT CONTRAST HISTORY: R/O SEIZURE R/O CVA COMPARISON: Noncontrast head CT 05/15/2018. TECHNIQUE: Multiplanar, multisequence MR images of the brain were obtained without intravenous contrast enhancement. FINDINGS: HEMORRHAGE: None DWI: No evidence of an acute or early subacute infarction. BRAIN PARENCHYMA: Normal cortico medullary signal intensity is appreciated in general with the exception of occasional chronic microangiopathy related long TR signal abnormalities at the periventricular, left frontal and bilateral parietal lobes. There is no mass effect. There is no suspicious extra-axial fluid collection in the midline brain anatomy appears unremarkable. High-resolution coronal imaging including the mesial bilateral temporal lobes appears diffusely unremarkable. Post fossa contents are unremarkable including the brainstem. VENTRICLES: Unremarkable. No hydrocephalus. CRANIUM: Unremarkable. ORBITS: Grossly unremarkable. PARANASAL SINUSES/MASTOIDS: Limited mucosal inflammatory changes left sphenoid sinus. VASCULAR SYSTEM: Skull base flow voids intact. OTHER FINDINGS: None. IMPRESSION: Minimal chronic microangiopathy. No acute intracranial findings grossly evident by standard MR criteria. No mass-effect hydrocephalus or definite intracranial hemorrhage appreciable.
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
[2018-05-16] MEDS: Vancomycin 1 gm/NS 200 ml 1 GM/200 ML BAG IVPB SCH (21:17)
--- NOTE | 2018-05-16 21:18 | CP.PCM.PN ---
Subjective - Date & Time of Evaluation Date of Evaluation: 05/16/18 Time of Evaluation: 21:11 - Subjective Subjective: He has his tests while taken on a wheel chair. Higher serum ammonia and normal MRI Brain and Ct Brain and carotid Doppler result is pending. Negative hepatitis panel, A, B C Normal CBC Diff and lipid profile and Uric acid. His LFT were abnormal High Blood Glucose. He is Awake, Alert, Oriented with fluent coherent slow speech. He is delirious. Objective - Vital Signs/Intake and Output Vital Signs (last 24 hours): Temp Pulse Resp BP Pulse Ox 97.6 F 78 20 146/72 97 05/16/18 18:59 05/16/18 18:59 05/16/18 18:59 05/16/18 18:59 05/16/18 18:59 Intake and Output: 05/16/18 05/17/18 18:59 06:59 Intake Total 400 Balance 400 - Medications Medications: Current Medications Aspirin (Ecotrin) 81 mg PO DAILY [facility] Last Admin: 05/16/18 10:52 Dose: 81 mg Atenolol (Tenormin) 50 mg PO DAILY [facility] Last Admin: 05/16/18 10:52 Dose: 50 mg Clopidogrel Bisulfate (Plavix) 75 mg PO DAILY [facility] Last Admin: 05/16/18 10:53 Dose: 75 mg Dextrose (Dextrose 50% Inj) 0 ml IVP .STAT PRN; Protocol PRN Reason: Hypoglycemia Protocol Dextrose (Glutose 15) 0 gm PO .ONCE PRN; Protocol PRN Reason: Hypoglycemia Protocol Furosemide (Lasix) 40 mg PO DAILY [facility] Last Admin: 05/16/18 10:52 Dose: 40 mg Glipizide (Glucotrol) 10 mg PO AMHS [facility] Last Admin: 05/16/18 10:52 Dose: 10 mg Glucagon (Glucagen Diagnostic Kit) 0 mg IM .STAT PRN; Protocol PRN Reason: Hypoglycemia Protocol Heparin Sodium (Porcine) (Heparin) 5,000 units SC Q12 [facility] Last Admin: 05/16/18 10:52 Dose: 5,000 units Vancomycin/Sodium Chloride (Vancomycin 1 Gm/Ns 200 Ml) 1 gm in 200 mls @ 133 mls/hr IVPB Q24H [facility] PRN Reason: Protocol Stop: 05/20/18 21:01 Last Admin: 05/15/18 22:23 Dose: 133 mls/hr Cefazolin Sodium/Dextrose (Ancef Iv 1 Gm Duplex) 1 gm in 50 mls @ 100 mls/hr IVPB Q8H [facility] PRN Reason: Protocol Last Admin: 05/16/18 20:24 Dose: 100 mls/hr Dextrose (Dextrose 5% In Water 1000 Ml) 1,000 mls @ 0 mls/hr IV .Q0M PRN; Protocol; Per Protocol PRN Reason: Hypoglycemia Protocol Ibuprofen (Motrin Tab) 400 mg PO Q6 PRN PRN Reason: Pain, Mild (1-3) Insulin Aspart (Novolog) 0 unit SC ACHS [facility] PRN Reason: Protocol Last Admin: 05/16/18 18:08 Dose: 8 unit Insulin Glargine (Lantus) 50 unit SC AMHS [facility] Last Admin: 05/16/18 10:53 Dose: 50 units Lactulose (Enulose) 20 gm PO TID [facility] Last Admin: 05/16/18 18:07 Dose: 20 gm Levetiracetam (Keppra) 500 mg PO BID [facility] Last Admin: 05/16/18 18:07 Dose: 500 mg Levothyroxine Sodium (Synthroid) 75 mcg PO DAILY@0630 [facility] Last Admin: 05/16/18 05:54 Dose: 75 mcg Metformin HCl (Glucophage) 1,000 mg PO BID [facility] Last Admin: 05/16/18 18:07 Dose: 1,000 mg Pantoprazole Sodium (Protonix Ec Tab) 40 mg PO DAILY [facility] Last Admin: 05/16/18 10:53 Dose: 40 mg - Labs Labs: 05/16/18 06:46 05/16/18 06:46 PT 15.7 SECONDS (9.7-12.2) H 05/15/18 22:45 INR 1.4 05/15/18 22:45 Assessment and Plan (1) Cellulitis Status: Acute (2) Confusion Assessment & Plan: High serum Ammonia causing AMS Status: Acute (3) CAD (coronary artery disease) Status: Chronic (4) Chest pain Status: Acute (5) Hyperglycemia Assessment & Plan: Diabetic Status: Acute (6) IDDM (insulin dependent diabetes mellitus) Assessment & Plan: High serum glucose Status: Acute (7) TIA (transient ischemic attack) Status: Acute (8) Diabetes mellitus Status: Chronic (9) CVA (cerebral vascular accident) Assessment & Plan: Ruled out by negative MRI Brain Status: Acute (10) Seizures Assessment & Plan: EEG is pending to be peformed. Status: Acute (11) Encephalopathy acute Assessment & Plan: High Serum Ammonia. Receiving Po Lactulose and IV Vancomycin and Ancef for his Erysipelas Status: Acute
--- NOTE | 2018-05-16 23:40 | CP.PCM.CON ---
History of Present Illness - History of Present Illness History of Present Illness: Majority of history if obtained from patient's chart Jeni Thompson is a 57 yo male with a history of CAD s/p 11 stents, T2DM, CHF , HTN, HLD, and hypothyroid who presents with AMS. The patient also has redness and swelling of his lower right leg. Patient's family states that the patient has been very lethargic, sleeping 21 hours per day. At this point, he is barely able to feed himself. He is also having significant memory loss and calling objects by the wrong name. He has been talking very slowing and not making sense. He frequently wanders both in and outside the house. The patient hits his legs on things while walking, which is what the family suspects happened to his RLE. 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 Of note, the patient's son was recently in a bad MVA approximately 1.5 months ago and the patient's sister of a stoke about 3 weeks ago. stats patient has been compliant with his meds because she gives them to him and watches him swallow. On exam, patient is able to follow some commands. His movements are very slow. He can give some one word answers to questions. He is oriented to person only. The patient was recently admitted on 05/05/18 for the same complaint. This was soon after his son was in the MVA and subsequently in a coma. He was seen by neurology (Dr. Jay). EEG at the time showed slowing, and patient was started on Keppra. Carotid u/s was unremarkable. CT and MRI of head were unremarkable as well. AMS resolved by discharge and was attributed to hypoglycemia +/- seizure. PMH: CAD s/p 11 stents T2DM CHF HTN HLD hypothyroid PSH: Cardiac stents 10+1=11 Appendectomy Meds: Keppra 500 mg PO BID Lantus 50 units AMHS Metformin 1000 mg PO BID Glipizide 10 mg PO AMHS ASA 81 Plavix 75 mg PO daily Atenolol 50 mg PO daily Lasix 40 mg PO daily Nexium 40 mg PO daily Synthroid 50 mcg PO daily Welchol 625 mg PO TID Kula 3 500 mg PO BID FH: mother- breast cancer, dementia father- CVA (hemiplegia) sister- 3 weeks ago from CVA SH: lives with works as [employer] driver- unable to work for past 2 weeks denies alcohol, tobacco, drugs PMD: Dr. Abernathy Neuro: Dr. Chu Endocrine: Rudy Cardio: Dr. Bell Medical proxy: Dylan Marley [phone] No advanced directive Full code Physical Exam - Constitutional Appears: No Acute Distress Additional comments: lethargic - Head Exam Head Exam: ATRAUMATIC, NORMAL INSPECTION, NORMOCEPHALIC - Eye Exam Eye Exam: Normal appearance, PERRL. absent: EOMI (patient unable to follow commands) - ENT Exam ENT Exam: Mucous Membranes Moist, Normal Exam - Neck Exam Neck exam: Positive for: Normal Inspection - Respiratory Exam Respiratory Exam: Clear to Auscultation Bilateral, NORMAL BREATHING PATTERN - Cardiovascular Exam Cardiovascular Exam: REGULAR RHYTHM, +S1, +S2 - GI/Abdominal Exam GI & Abdominal Exam: Normal Bowel Sounds, Soft. absent: Tenderness Additional comments: obese - Rectal Exam Rectal Exam: Deferred - Extremities Exam Additional comments: RLE errythema, non-pitting edema, tenderness to palpation, warmth Healing lesions to b/l LEs - Back Exam Back exam: NORMAL INSPECTION - Neurological Exam Neurological exam: Alert, Altered Additional comments: no asterixis, no tremors, oriented to person only - Psychiatric Exam Additional comments: AMS - Skin Skin Exam: Dry, Intact, Normal Color, Warm Past Patient History - Infectious Disease Hx of Infectious Diseases: None - Tetanus Immunizations Tetanus Immunization: Unknown - Past Medical History & Family History Past Medical History?: Yes - Past Social History Smoking Status: Never Smoked Chewing Tobacco Use: No Cigar Use: No Alcohol: None Drugs: Denies Home Situation {Lives}: With Family () Domestic Violence: Negative - CARDIAC Hx Cardiac Disorders: Yes Hx Congestive Heart Failure: Yes Hx Hypercholesterolemia: Yes Hx Hypertension: Yes - PULMONARY Hx Respiratory Disorders: No - NEUROLOGICAL Hx Paralysis: No - HEENT Hx HEENT Problems: No - RENAL Hx Chronic Kidney Disease: No - ENDOCRINE/METABOLIC Hx Diabetes Mellitus Type 2: Yes Hx Hypothyroidism: Yes - HEMATOLOGICAL/ONCOLOGICAL Hx Blood Transfusions: No Hx Blood Transfusion Reaction: No - INTEGUMENTARY Hx Dermatological Problems: No Other/Comment: ble multiple skin discolorations - MUSCULOSKELETAL/RHEUMATOLOGICAL Hx Fractures: Yes (fx tibia fibula l,right shoulder sx,rib fx) - GASTROINTESTINAL Hx Gastrointestinal Disorders: Yes (obese) - GENITOURINARY/GYNECOLOGICAL Hx Genitourinary Disorders: No - PSYCHIATRIC Hx Substance Use: No - SURGICAL HISTORY Hx Appendectomy: Yes Hx Coronary Stent: Yes (x10 +1 = 11 stents.) - ANESTHESIA Hx Anesthesia: Yes Hx Anesthesia Reactions: No Hx Malignant Hyperthermia: No Meds Allergies/Adverse Reactions: Allergies Allergy/AdvReac Type Severity Reaction Status Date / Time No Known Allergies Allergy Verified 05/15/18 16:45 - Medications Medications: Current Medications Aspirin (Ecotrin) 81 mg PO DAILY [facility] Last Admin: 05/16/18 10:52 Dose: 81 mg Atenolol (Tenormin) 50 mg PO DAILY [facility] Last Admin: 05/16/18 10:52 Dose: 50 mg Clopidogrel Bisulfate (Plavix) 75 mg PO DAILY [facility] Last Admin: 05/16/18 10:53 Dose: 75 mg Dextrose (Dextrose 50% Inj) 0 ml IVP .STAT PRN; Protocol PRN Reason: Hypoglycemia Protocol Dextrose (Glutose 15) 0 gm PO .ONCE PRN; Protocol PRN Reason: Hypoglycemia Protocol Furosemide (Lasix) 40 mg PO DAILY [facility] Last Admin: 05/16/18 10:52 Dose: 40 mg Glipizide (Glucotrol) 10 mg PO AMHS [facility] Last Admin: 05/16/18 22:44 Dose: 10 mg Glucagon (Glucagen Diagnostic Kit) 0 mg IM .STAT PRN; Protocol PRN Reason: Hypoglycemia Protocol Heparin Sodium (Porcine) (Heparin) 5,000 units SC Q12 [facility] Last Admin: 05/16/18 22:44 Dose: 5,000 units Vancomycin/Sodium Chloride (Vancomycin 1 Gm/Ns 200 Ml) 1 gm in 200 mls @ 133 mls/hr IVPB Q24H [facility] PRN Reason: Protocol Stop: 05/20/18 21:01 Last Admin: 05/16/18 21:17 Dose: 133 mls/hr Cefazolin Sodium/Dextrose (Ancef Iv 1 Gm Duplex) 1 gm in 50 mls @ 100 mls/hr IVPB Q8H [facility] PRN Reason: Protocol Last Admin: 05/16/18 20:24 Dose: 100 mls/hr Dextrose (Dextrose 5% In Water 1000 Ml) 1,000 mls @ 0 mls/hr IV .Q0M PRN; Protocol; Per Protocol PRN Reason: Hypoglycemia Protocol Ibuprofen (Motrin Tab) 400 mg PO Q6 PRN PRN Reason: Pain, Mild (1-3) Insulin Aspart (Novolog) 0 unit SC ACHS [facility] PRN Reason: Protocol Last Admin: 05/16/18 22:43 Dose: 2 unit Insulin Glargine (Lantus) 50 unit SC AMHS [facility] Last Admin: 05/16/18 22:43 Dose: 50 units Lactulose (Enulose) 20 gm PO TID [facility] Last Admin: 05/16/18 18:07 Dose: 20 gm Levetiracetam (Keppra) 500 mg PO BID [facility] Last Admin: 05/16/18 18:07 Dose: 500 mg Levothyroxine Sodium (Synthroid) 75 mcg PO DAILY@0630 [facility] Last Admin: 05/16/18 05:54 Dose: 75 mcg Metformin HCl (Glucophage) 1,000 mg PO BID [facility] Last Admin: 05/16/18 18:07 Dose: 1,000 mg Pantoprazole Sodium (Protonix Ec Tab) 40 mg PO DAILY [facility] Last Admin: 05/16/18 10:53 Dose: 40 mg Results - Vital Signs Recent Vital Signs: Last Vital Signs Temp 97.6 F 05/16/18 18:59 Pulse 78 05/16/18 18:59 Resp 20 05/16/18 18:59 BP 146/72 05/16/18 18:59 Pulse Ox 97 05/16/18 18:59 - Labs Result Diagrams: 05/16/18 06:46 05/16/18 06:46 Labs: Laboratory Results - last 24 hr 05/16/18 05/16/18 05/16/18 02:03 06:25 06:46 WBC 5.3 RBC 3.85 L Hgb 12.3 Hct 35.8 MCV 92.9 MCH 32.0 H MCHC 34.5 RDW 14.7 H Plt Count 102 L MPV 10.0 Neut % (Auto) 50.9 Lymph % (Auto) 29.1 [place] % (Auto) 16.7 H Eos % (Auto) 2.2 Baso % (Auto) 1.1 Neut # (Auto) 2.7 Lymph # (Auto) 1.5 [place] # (Auto) 0.9 H Eos # (Auto) 0.1 Baso # (Auto) 0.1 Sodium Potassium Chloride Carbon Dioxide Anion Gap BUN Creatinine Est GFR ( Amer) Est GFR (Non-Af Amer) POC Glucose (mg/dL) 389 H 308 H Random Glucose Calcium Phosphorus Magnesium Total Bilirubin AST ALT Alkaline Phosphatase Ammonia Total Protein Albumin Globulin Albumin/Globulin Ratio Free T4 TSH 3rd Generation Hepatitis A IgM Ab Hep Bs Antigen Hep B Core IgM Ab Hepatitis C Antibody 05/16/18 05/16/18 05/16/18 06:46 06:46 06:46 WBC RBC Hgb Hct MCV MCH MCHC RDW Plt Count MPV Neut % (Auto) Lymph % (Auto) [place] % (Auto) Eos % (Auto) Baso % (Auto) Neut # (Auto) Lymph # (Auto) [place] # (Auto) Eos # (Auto) Baso # (Auto) Sodium 140 Potassium 4.2 Chloride 109 H Carbon Dioxide 22 Anion Gap 12 BUN 9 Creatinine 0.6 L Est GFR ( Amer) > 60 Est GFR (Non-Af Amer) > 60 POC Glucose (mg/dL) Random Glucose 306 H Calcium 8.6 Phosphorus 3.4 Magnesium 1.8 Total Bilirubin 0.9 AST 52 ALT 37 Alkaline Phosphatase 98 Ammonia 109 H Total Protein 6.9 Albumin 3.1 L Globulin 3.8 Albumin/Globulin Ratio 0.8 L Free T4 TSH 3rd Generation 2.28 Hepatitis A IgM Ab Negative Hep Bs Antigen Negative Hep B Core IgM Ab Negative Hepatitis C Antibody Negative 05/16/18 05/16/18 05/16/18 10:04 11:26 16:29 WBC RBC Hgb Hct MCV MCH MCHC RDW Plt Count MPV Neut % (Auto) Lymph % (Auto) [place] % (Auto) Eos % (Auto) Baso % (Auto) Neut # (Auto) Lymph # (Auto) [place] # (Auto) Eos # (Auto) Baso # (Auto) Sodium Potassium Chloride Carbon Dioxide Anion Gap BUN Creatinine Est GFR ( Amer) Est GFR (Non-Af Amer) POC Glucose (mg/dL) 360 H 350 H Random Glucose Calcium Phosphorus Magnesium Total Bilirubin AST ALT Alkaline Phosphatase Ammonia Total Protein Albumin Globulin Albumin/Globulin Ratio Free T4 1.12 TSH 3rd Generation Hepatitis A IgM Ab Hep Bs Antigen Hep B Core IgM Ab Hepatitis C Antibody 05/16/18 21:22 WBC RBC Hgb Hct MCV MCH MCHC RDW Plt Count MPV Neut % (Auto) Lymph % (Auto) [place] % (Auto) Eos % (Auto) Baso % (Auto) Neut # (Auto) Lymph # (Auto) [place] # (Auto) Eos # (Auto) Baso # (Auto) Sodium Potassium Chloride Carbon Dioxide Anion Gap BUN Creatinine Est GFR ( Amer) Est GFR (Non-Af Amer) POC Glucose (mg/dL) 322 H Random Glucose Calcium Phosphorus Magnesium Total Bilirubin AST ALT Alkaline Phosphatase Ammonia Total Protein Albumin Globulin Albumin/Globulin Ratio Free T4 TSH 3rd Generation Hepatitis A IgM Ab Hep Bs Antigen Hep B Core IgM Ab Hepatitis C Antibody Assessment & Plan - Assessment and Plan (Free Text) Assessment: Patient is a 57 yo male who presented with AMS. Recent admission for same complaint- patient was discharged on Keppra. No tonic-clonic seizure activity witnessed. This admission, patient's ammonia is elevated without history of alcohol use or liver disease Plan: AMS -2/2 elevated ammonia vs. LYNDSAY from Pickwickian syndrome vs. autoimmune - CT head: negative for acute pathology - MRI results pending from this admission. (MRI from 05/06/18 unremarkable) - UDS and BAL negative - Hepatitis panel negative (AST 61, ALT 48) - Ammonia: 96 on admission. Repeat was 109 today. - F/u EEG - F/u carotid u/s (05/06/18 showed B/L 20-39% proximal ICA stenosis) - F/u RF, SUSAN - F/u vit D - Neurology consulted (Dr. Chu) - Psychiatry consulted (Dr. Ortez) - Pt started on lactulos 20 TID with goal of 2-3 BMs/day RLE cellulits - R foot and tibia/fibula XR: soft tissue swelling - CRP 14.5, ESR 72 - Uric acid 3.6 - F/u RLE venous Doppler - F/u blood Cx - Ancef 1 g IV q8hrs - Vancomycin 1 g IV q24hrs - ID consulted (Dr. Noyola). Dr. Chaparro covering for Dr. Noyola. Recs pending CAD s/p 11 stents - Cardiac cath 11/07/17 - Troponin negative - ASA 81 mg PO daily - Plavix 75 mg PO daily - Cardiology consulted (Dr. Patel) T2DM, chronic, poorly controlled - Glipizide 10 mg PO BID - ISS - Hypoglycemia protocol -HgbA1c 9.4 on 05/05/18 CHF - CXR: Prominent interstitial markings may reflect vascular crowding due to hypoinflation versus mild pulmonary venous congestion. - BNP: 136 - Lasix 40 mg PO BID HTN, chronic - Vitals q4hrs - Atenolol 50 mg PO daily HLD - Home med: Welchol 625 mg TID Hypothyroidism - TSH 1.27 - Synthroid 50 mcg PO daily Thrombocytopenia - Platelets noted to be 102 - Likely 2/2 liver disease vs. hepatosplenomegaly and sequestration - Will continue to monitor Hyperammonemia - Pt started on lactulose 20 mg TID - Will check abd US PT consult OT consult IVF: not indicated GI ppx: Protonix 40 mg PO QD VTE ppx: SCD on L leg, will start heparin q 12 Diet: heart healthy (low carb, low sodium) Code status: full code
--- NOTE | 2018-05-17 01:30 | CP.PCM.PN ---
Subjective - Date & Time of Evaluation Date of Evaluation: 05/17/18 Time of Evaluation: 06:35 - Subjective Subjective: PGY-1 Oanh Kemp D.O. Medicine progress note for Dr. Bergeron's service: Patient is seen and examined. He is currently on 1:1 with a sitter for safety- reports sleeping entire shift. Patient is sleeping but eventually able to be aroused. He only makes sounds when asked questions. his eyes are closed throughout. He is able to follow commands. He denies pain. Objective - Vital Signs/Intake and Output Vital Signs (last 24 hours): Temp Pulse Resp BP Pulse Ox 98.7 F 86 20 146/69 98 05/16/18 23:05 05/16/18 23:05 05/16/18 23:05 05/16/18 23:05 05/16/18 23:05 Intake and Output: 05/16/18 05/17/18 18:59 06:59 Intake Total 400 350 Balance 400 350 - Medications Medications: Current Medications Aspirin (Ecotrin) 81 mg PO DAILY [facility] Last Admin: 05/16/18 10:52 Dose: 81 mg Atenolol (Tenormin) 50 mg PO DAILY [facility] Last Admin: 05/16/18 10:52 Dose: 50 mg Clopidogrel Bisulfate (Plavix) 75 mg PO DAILY [facility] Last Admin: 05/16/18 10:53 Dose: 75 mg Dextrose (Dextrose 50% Inj) 0 ml IVP .STAT PRN; Protocol PRN Reason: Hypoglycemia Protocol Dextrose (Glutose 15) 0 gm PO .ONCE PRN; Protocol PRN Reason: Hypoglycemia Protocol Furosemide (Lasix) 40 mg PO DAILY [facility] Last Admin: 05/16/18 10:52 Dose: 40 mg Glipizide (Glucotrol) 10 mg PO AMHS [facility] Last Admin: 05/16/18 22:44 Dose: 10 mg Glucagon (Glucagen Diagnostic Kit) 0 mg IM .STAT PRN; Protocol PRN Reason: Hypoglycemia Protocol Heparin Sodium (Porcine) (Heparin) 5,000 units SC Q12 [facility] Last Admin: 05/16/18 22:44 Dose: 5,000 units Vancomycin/Sodium Chloride (Vancomycin 1 Gm/Ns 200 Ml) 1 gm in 200 mls @ 133 mls/hr IVPB Q24H [facility] PRN Reason: Protocol Stop: 05/20/18 21:01 Last Admin: 05/16/18 21:17 Dose: 133 mls/hr Cefazolin Sodium/Dextrose (Ancef Iv 1 Gm Duplex) 1 gm in 50 mls @ 100 mls/hr IVPB Q8H [facility] PRN Reason: Protocol Last Admin: 05/16/18 20:24 Dose: 100 mls/hr Dextrose (Dextrose 5% In Water 1000 Ml) 1,000 mls @ 0 mls/hr IV .Q0M PRN; Protocol; Per Protocol PRN Reason: Hypoglycemia Protocol Ibuprofen (Motrin Tab) 400 mg PO Q6 PRN PRN Reason: Pain, Mild (1-3) Insulin Aspart (Novolog) 0 unit SC ACHS [facility] PRN Reason: Protocol Last Admin: 05/16/18 22:43 Dose: 2 unit Insulin Glargine (Lantus) 50 unit SC [facility] Last Admin: 05/16/18 22:43 Dose: 50 units Lactulose (Enulose) 20 gm PO TID [facility] Last Admin: 05/16/18 18:07 Dose: 20 gm Levetiracetam (Keppra) 500 mg PO BID [facility] Last Admin: 05/16/18 18:07 Dose: 500 mg Levothyroxine Sodium (Synthroid) 75 mcg PO DAILY@0630 [facility] Last Admin: 05/16/18 05:54 Dose: 75 mcg Metformin HCl (Glucophage) 1,000 mg PO BID [facility] Last Admin: 05/16/18 18:07 Dose: 1,000 mg Pantoprazole Sodium (Protonix Ec Tab) 40 mg PO DAILY [facility] Last Admin: 05/16/18 10:53 Dose: 40 mg - Labs Labs: 05/16/18 06:46 05/16/18 06:46 PT 15.7 SECONDS (9.7-12.2) H 05/15/18 22:45 INR 1.4 05/15/18 22:45 - Constitutional Appears: Non-toxic, No Acute Distress - Head Exam Head Exam: ATRAUMATIC, NORMAL INSPECTION, NORMOCEPHALIC - Eye Exam Eye Exam: Normal appearance - ENT Exam ENT Exam: Mucous Membranes Moist - Neck Exam Neck Exam: Normal Inspection - Respiratory Exam Respiratory Exam: Clear to Ausculation Bilateral, NORMAL BREATHING PATTERN - Cardiovascular Exam Cardiovascular Exam: REGULAR RHYTHM, +S1, +S2 - GI/Abdominal Exam GI & Abdominal Exam: Soft Additional comments: obese - Rectal Exam Rectal Exam: Deferred - Back Exam Back Exam: NORMAL INSPECTION - Neurological Exam Neurological Exam: Alert, Awake (once aroused) - Skin Skin Exam: Dry, Intact, Normal Color, Warm Assessment and Plan - Assessment and Plan (Free Text) Assessment: Patient is a 57 yo male who presented with AMS. Recent admission for same complaint- patient was discharged on Keppra. No tonic-clonic seizure activity witnessed. This admission, patient's ammonia is elevated without history of alcohol use or liver disease. Plan: AMS-2/2 elevated ammonia vs. LYNDSAY from Pickwickian syndrome vs. autoimmune - CT head: negative for acute pathology - MRI brain: no acute pathology, no mass effect (MRI from 05/06/18 also unremarkable) - UDS and BAL negative - Hepatitis panel negative (AST 52, ALT 37) - Ammonia: 96 on admission-->109- f/u repeat - F/u EEG - F/u carotid u/s (05/06/18 showed B/L 20-39% proximal ICA stenosis) - F/u RF, SUSAN - F/u vit D - Keppra 500 mg PO BID - Lactulose 20 mg PO TID with goal of 2-3 BMs/day- hold if excessive diarrhea - Neurology consulted (Dr. Chu)- ruled out CVA, f/u EEG - Psychiatry consulted (Dr. Ortez)- cannot assess until patient not altered RLE cellulits - R foot and tibia/fibula XR: soft tissue swelling - CRP 14.5, ESR 72 - Uric acid 3.6 - F/u RLE venous Doppler - F/u blood Cx - Ancef 1 g IV q8hrs - Vancomycin 1 g IV q24hrs - ID consulted (Dr. Noyola)- Dr. Chaparro covering for Dr. Noyola. Recs pending Hyperammonemia (109) - Lactulose 20 mg PO TID - F/u abd u/s Thrombocytopenia (102)- Likely 2/2 liver disease vs. hepatosplenomegaly and sequestration - Monitor CBC daily CAD s/p 11 stents - Cardiac cath 11/07/17 - Troponin negative - ASA 81 mg PO daily - Plavix 75 mg PO daily - Cardiology consulted (Dr. Patel) T2DM, chronic, poorly controlled- HgbA1c 9.4 on 05/05/18, pt's family reports hypoglycemic episodes - Glipizide 10 mg PO AMHS - ISS high dose - Hypoglycemia protocol CHF - Echo 05/06/18: EF 55% - CXR: Prominent interstitial markings may reflect vascular crowding due to hypoinflation versus mild pulmonary venous congestion. - BNP: 136 - Lasix 40 mg PO BID HTN, chronic - Vitals q4hrs - Atenolol 50 mg PO daily HLD, chronic - Home med: Welchol 625 mg TID Hypothyroidism - TSH 1.27 - Synthroid 50 mcg PO daily PT consult OT consult IVF: not indicated GI ppx: Protonix 40 mg PO QD VTE ppx: SCD on L leg, will start heparin q 12 Diet: heart healthy (low carb, low sodium)- NPO until abd u/s complete Code status: full code
[2018-05-17] MEDS: ceFAZolin IV 1 gm in Dextrose 1 GM/50 ML BAG IVPB SCH ×3 (04:52→20:45)
[2018-05-17] MEDS: Levothyroxine 75 MCG TAB PO SCH (05:41)
[2018-05-17] MEDS: (Novolog) Insulin Aspart, Recombinant 100 u/ml 10 ml vial SC SCH ×4 (07:50→21:37)
[2018-05-17 07:54] LABS: BASO # 0.1 K/uL (0.0-0.2); EOS # 0.2 K/uL (0.0-0.7); EOS % 3.5 % (0.0-4.0); HEMOGLOBIN 12.6 g/dL (12.0-18.0); LYMPH # 1.8 K/uL (1.0-4.3); LYMPH % 30.6 % (20.0-40.0); MEAN CORPUSCULAR HEMOGLOBIN 32.2 pg (27.0-31.0); MEAN PLATELET VOLUME 9.9 fL (7.2-11.7); MONO # 0.9 K/uL (0.0-0.8); MONO % 15.1 % (0.0-10.0); NEUT # 2.9 K/uL (1.8-7.0); NEUT % 49.8 % (50.0-75.0); RBC 3.9 Mil/uL (4.40-5.90); RED CELL DISTRIBUTION WIDTH 13.9 % (11.5-14.5); WHITE BLOOD COUNT 5.8 K/uL (4.8-10.8)
[2018-05-17 08:24] LABS: ALB/GLOB RATIO 0.8 (1.0-2.1); ALT/SGPT 38 U/L (21-72); AST/SGOT 51 U/L (17-59); BLOOD UREA NITROGEN 10 mg/dL (9-20); CALCIUM 8.5 mg/dl (8.6-10.4); GFR NON-AFRICAN AMERICAN > 60
[2018-05-17] MEDS: Pantoprazole 40 mg EC Tab PO SCH (10:14)
[2018-05-17] MEDS: (Lantus) Insulin Glargine, Recombinant SC SCH ×2 (10:15→21:36)
--- NOTE | 2018-05-17 11:26 | US ---
Date of service: 05/17/2018 HISTORY: r/u cirrhosis COMPARISON: None. TECHNIQUE: Sonographic evaluation of the abdomen. FINDINGS: LIVER: Measures 16.67 cm. Mildly heterogeneous echogenicity of the liver parenchyma. No mass. No intrahepatic bile duct dilatation. GALLBLADDER: Gallbladder is distended but without acute findings otherwise evident. No cholelithiasis. COMMON BILE DUCT: Measures 5.8 mm. No stones. No dilatation. PANCREAS: Body of pancreas is unremarkable the remainder obscured by interposed bowel gas. RIGHT KIDNEY: Measures 11.4cm. Normal echogenicity. No calculus, mass, or hydronephrosis. LEFT KIDNEY: Measures 12.9cm. Normal echogenicity. No calculus, mass, or hydronephrosis. SPLEEN: Normal in size and contour. No mass. AORTA: Partially obscured by overlying bowel gas with the visualized proximal segment patent. IVC: Partially obscured by overlying bowel gas with the visualized proximal segment patent. OTHER FINDINGS: None. IMPRESSION: Exam somewhat obscured by overlying bowel gas the pancreas, abdominal aorta inferior vena cava. The gallbladder is distended but otherwise unremarkable appearing. No biliary tree dilatation identified. No obstructive uropathy bilaterally or focal hepatic pathology appreciated.
--- NOTE | 2018-05-17 14:55 | CP.PCM.PN ---
Subjective - Date & Time of Evaluation Date of Evaluation: 05/17/18 Time of Evaluation: 14:52 - Subjective Subjective: He has a lower Ammonia level down to 74/dl LFT are better. He is more awake, alert, less delirious, walking on his feet with help after his ammonia went down. Erysipelas is improving on Antibiotics Ancef and Vancomycin. Normal Vital signs. Objective - Vital Signs/Intake and Output Vital Signs (last 24 hours): Temp Pulse Resp BP Pulse Ox 98.1 F 79 20 110/55 L 98 05/17/18 07:00 05/17/18 07:00 05/17/18 07:00 05/17/18 10:13 05/17/18 07:00 Intake and Output: 05/17/18 05/17/18 06:59 18:59 Intake Total 350 Balance 350 - Medications Medications: Current Medications Aspirin (Ecotrin) 81 mg PO DAILY [facility] Last Admin: 05/17/18 10:13 Dose: 81 mg Atenolol (Tenormin) 50 mg PO DAILY [facility] Last Admin: 05/17/18 10:14 Dose: 50 mg Clopidogrel Bisulfate (Plavix) 75 mg PO DAILY [facility] Last Admin: 05/17/18 10:13 Dose: 75 mg Dextrose (Dextrose 50% Inj) 0 ml IVP .STAT PRN; Protocol PRN Reason: Hypoglycemia Protocol Dextrose (Glutose 15) 0 gm PO .ONCE PRN; Protocol PRN Reason: Hypoglycemia Protocol Furosemide (Lasix) 40 mg PO DAILY [facility] Last Admin: 05/17/18 10:13 Dose: 40 mg Glipizide (Glucotrol) 10 mg PO AMHS [facility] Last Admin: 05/17/18 10:13 Dose: 10 mg Glucagon (Glucagen Diagnostic Kit) 0 mg IM .STAT PRN; Protocol PRN Reason: Hypoglycemia Protocol Heparin Sodium (Porcine) (Heparin) 5,000 units SC Q12 [facility] Last Admin: 05/17/18 10:13 Dose: 5,000 units Vancomycin/Sodium Chloride (Vancomycin 1 Gm/Ns 200 Ml) 1 gm in 200 mls @ 133 mls/hr IVPB Q24H [facility] PRN Reason: Protocol Stop: 05/20/18 21:01 Last Admin: 05/16/18 21:17 Dose: 133 mls/hr Cefazolin Sodium/Dextrose (Ancef Iv 1 Gm Duplex) 1 gm in 50 mls @ 100 mls/hr IVPB Q8H [facility] PRN Reason: Protocol Last Admin: 05/17/18 13:54 Dose: 100 mls/hr Dextrose (Dextrose 5% In Water 1000 Ml) 1,000 mls @ 0 mls/hr IV .Q0M PRN; Protocol; Per Protocol PRN Reason: Hypoglycemia Protocol Ibuprofen (Motrin Tab) 400 mg PO Q6 PRN PRN Reason: Pain, Mild (1-3) Insulin Aspart (Novolog) 0 unit SC ACHS [facility] PRN Reason: Protocol Last Admin: 05/17/18 12:19 Dose: 2 unit Insulin Glargine (Lantus) 50 unit SC AMHS [facility] Last Admin: 05/17/18 10:15 Dose: 50 units Lactulose (Enulose) 20 gm PO TID [facility] Last Admin: 05/17/18 13:54 Dose: 20 gm Levetiracetam (Keppra) 500 mg PO BID [facility] Last Admin: 05/17/18 10:13 Dose: 500 mg Levothyroxine Sodium (Synthroid) 75 mcg PO DAILY@0630 [facility] Last Admin: 05/17/18 05:41 Dose: 75 mcg Metformin HCl (Glucophage) 1,000 mg PO BID [facility] Last Admin: 05/17/18 10:14 Dose: 1,000 mg Pantoprazole Sodium (Protonix Ec Tab) 40 mg PO DAILY [facility] Last Admin: 05/17/18 10:14 Dose: 40 mg - Labs Labs: 05/17/18 07:44 05/17/18 07:44 PT 15.7 SECONDS (9.7-12.2) H 05/15/18 22:45 INR 1.4 05/15/18 22:45 Assessment and Plan (1) Cellulitis Status: Acute (2) Confusion Status: Acute (3) CAD (coronary artery disease) Status: Chronic (4) Chest pain Status: Acute (5) Hyperglycemia Status: Acute (6) IDDM (insulin dependent diabetes mellitus) Status: Acute (7) TIA (transient ischemic attack) Status: Acute (8) Diabetes mellitus Status: Chronic (9) CVA (cerebral vascular accident) Status: Acute (10) Seizures Status: Acute
--- NOTE | 2018-05-17 21:27 | CP.PCM.PN ---
Subjective - Date & Time of Evaluation Date of Evaluation: 05/17/18 Time of Evaluation: 10:15 - Subjective Subjective: Some what more awake Objective - Vital Signs/Intake and Output Vital Signs (last 24 hours): Temp Pulse Resp BP Pulse Ox 98.3 F 81 20 122/70 97 05/17/18 15:00 05/17/18 15:00 05/17/18 15:00 05/17/18 15:00 05/17/18 15:00 Intake and Output: 05/17/18 05/18/18 18:59 06:59 Intake Total 770 Balance 770 - Medications Medications: Current Medications Aspirin (Ecotrin) 81 mg PO DAILY [facility] Last Admin: 05/17/18 10:13 Dose: 81 mg Atenolol (Tenormin) 50 mg PO DAILY [facility] Last Admin: 05/17/18 10:14 Dose: 50 mg Clopidogrel Bisulfate (Plavix) 75 mg PO DAILY [facility] Last Admin: 05/17/18 10:13 Dose: 75 mg Dextrose (Dextrose 50% Inj) 0 ml IVP .STAT PRN; Protocol PRN Reason: Hypoglycemia Protocol Dextrose (Glutose 15) 0 gm PO .ONCE PRN; Protocol PRN Reason: Hypoglycemia Protocol Furosemide (Lasix) 40 mg PO DAILY [facility] Last Admin: 05/17/18 10:13 Dose: 40 mg Glipizide (Glucotrol) 10 mg PO AMHS [facility] Last Admin: 05/17/18 10:13 Dose: 10 mg Glucagon (Glucagen Diagnostic Kit) 0 mg IM .STAT PRN; Protocol PRN Reason: Hypoglycemia Protocol Heparin Sodium (Porcine) (Heparin) 5,000 units SC Q12 [facility] Last Admin: 05/17/18 10:13 Dose: 5,000 units Vancomycin/Sodium Chloride (Vancomycin 1 Gm/Ns 200 Ml) 1 gm in 200 mls @ 133 mls/hr IVPB Q24H [facility] PRN Reason: Protocol Stop: 05/20/18 21:01 Last Admin: 05/16/18 21:17 Dose: 133 mls/hr Cefazolin Sodium/Dextrose (Ancef Iv 1 Gm Duplex) 1 gm in 50 mls @ 100 mls/hr IVPB Q8H [facility] PRN Reason: Protocol Last Admin: 05/17/18 20:45 Dose: 100 mls/hr Dextrose (Dextrose 5% In Water 1000 Ml) 1,000 mls @ 0 mls/hr IV .Q0M PRN; Protocol; Per Protocol PRN Reason: Hypoglycemia Protocol Ibuprofen (Motrin Tab) 400 mg PO Q6 PRN PRN Reason: Pain, Mild (1-3) Insulin Aspart (Novolog) 0 unit SC ACHS [facility] PRN Reason: Protocol Last Admin: 05/17/18 17:42 Dose: 6 unit Insulin Glargine (Lantus) 50 unit SC AMHS [facility] Last Admin: 05/17/18 10:15 Dose: 50 units Lactulose (Enulose) 20 gm PO TID [facility] Last Admin: 05/17/18 17:46 Dose: 20 gm Levetiracetam (Keppra) 500 mg PO BID [facility] Last Admin: 05/17/18 17:43 Dose: 500 mg Levothyroxine Sodium (Synthroid) 75 mcg PO DAILY@0630 [facility] Last Admin: 05/17/18 05:41 Dose: 75 mcg Metformin HCl (Glucophage) 1,000 mg PO BID [facility] Last Admin: 05/17/18 17:43 Dose: 1,000 mg Pantoprazole Sodium (Protonix Ec Tab) 40 mg PO DAILY [facility] Last Admin: 05/17/18 10:14 Dose: 40 mg - Labs Labs: 05/17/18 07:44 05/17/18 07:44 PT 15.7 SECONDS (9.7-12.2) H 05/15/18 22:45 INR 1.4 05/15/18 22:45 Assessment and Plan - Assessment and Plan (Free Text) Assessment: Patient is a 57 yo male who presented with AMS. Recent admission for same complaint- patient was discharged on Keppra. No tonic-clonic seizure activity witnessed. This admission, patient's ammonia is elevated without history of alcohol use or liver disease. Plan: AMS-2/2 elevated ammonia vs. LYNDSAY from Pickwickian syndrome vs. autoimmune - CT head: negative for acute pathology - MRI brain: no acute pathology, no mass effect (MRI from 05/06/18 also unremarkable) - UDS and BAL negative - Hepatitis panel negative (AST 52, ALT 37) - Ammonia: 96 on admission-->109- f/u repeat - F/u EEG - F/u carotid u/s (05/06/18 showed B/L 20-39% proximal ICA stenosis) - F/u RF, SUSAN - F/u vit D - Keppra 500 mg PO BID - Lactulose 20 mg PO TID with goal of 2-3 BMs/day- hold if excessive diarrhea - Neurology consulted (Dr. Chu)- ruled out CVA, f/u EEG - Psychiatry consulted (Dr. Ortez)- cannot assess until patient not altered RLE cellulits - R foot and tibia/fibula XR: soft tissue swelling - CRP 14.5, ESR 72 - Uric acid 3.6 - F/u RLE venous Doppler - F/u blood Cx - Ancef 1 g IV q8hrs - Vancomycin 1 g IV q24hrs - ID consulted (Dr. Noyola)- Dr. Chaparro covering for Dr. Noyola. Recs pending Hyperammonemia (109) - Lactulose 20 mg PO TID - F/u abd u/s Thrombocytopenia (102)- Likely 2/2 liver disease vs. hepatosplenomegaly and sequestration - Monitor CBC daily CAD s/p 11 stents - Cardiac cath 11/07/17 - Troponin negative - ASA 81 mg PO daily - Plavix 75 mg PO daily - Trops negative. ECHO pending T2DM, chronic, poorly controlled- HgbA1c 9.4 on 05/05/18, pt's family reports hypoglycemic episodes - Glipizide 10 mg PO AMHS - ISS high dose - Hypoglycemia protocol CHF - Echo 05/06/18: EF 55% - CXR: Prominent interstitial markings may reflect vascular crowding due to hypoinflation versus mild pulmonary venous congestion. - BNP: 136 - Lasix 40 mg PO BID HTN, chronic - Vitals q4hrs - Atenolol 50 mg PO daily HLD, chronic - Home med: Welchol 625 mg TID Hypothyroidism - TSH 1.27 - Synthroid 50 mcg PO daily PT consult OT consult
[2018-05-17] MEDS: Vancomycin 1 gm/NS 200 ml 1 GM/200 ML BAG IVPB SCH (21:37)
[2018-05-18] MEDS: ceFAZolin IV 1 gm in Dextrose 1 GM/50 ML BAG IVPB SCH ×3 (05:05→20:44)
[2018-05-18] MEDS: Levothyroxine 75 MCG TAB PO SCH (05:47)
[2018-05-18 07:22] LABS: BASO # 0.1 K/uL (0.0-0.2); EOS # 0.2 K/uL (0.0-0.7); EOS % 3.5 % (0.0-4.0); LYMPH % 33.2 % (20.0-40.0); MEAN CELL VOLUME 91.5 fL (80.0-94.0); MEAN CORPUSCULAR HEMOGLOBIN 31.9 pg (27.0-31.0); MEAN CORPUSCULAR HGB CONC 34.9 g/dL (33.0-37.0); MEAN PLATELET VOLUME 9.6 fL (7.2-11.7); MONO # 0.9 K/uL (0.0-0.8); MONO % 14.9 % (0.0-10.0); NEUT # 2.9 K/uL (1.8-7.0); NEUT % 47.4 % (50.0-75.0); NRBC % 0.1 % (0.0-2.0); RBC 3.76 Mil/uL (4.40-5.90); RED CELL DISTRIBUTION WIDTH 13.9 % (11.5-14.5); WHITE BLOOD COUNT 6.1 K/uL (4.8-10.8)
[2018-05-18] MEDS: (Novolog) Insulin Aspart, Recombinant 100 u/ml 10 ml vial SC SCH ×4 (08:19→21:26)
[2018-05-18 09:18] LABS: ALB/GLOB RATIO 0.8 (1.0-2.1); ALT/SGPT 41 U/L (21-72); AST/SGOT 66 U/L (17-59); BLOOD UREA NITROGEN 12 mg/dL (9-20); CALCIUM 8.4 mg/dl (8.6-10.4); GFR NON-AFRICAN AMERICAN > 60; URIC ACID 4.6 mg/dL (3.5-8.5)
[2018-05-18] MEDS: (Lantus) Insulin Glargine, Recombinant SC SCH ×2 (10:26→21:29)
[2018-05-18] MEDS: Pantoprazole 40 mg EC Tab PO SCH (10:27)
--- NOTE | 2018-05-18 10:38 | VASCLAB ---
Date of service: 05/16/2018 PROCEDURE: Right Lower Extremity Venous Duplex Exam. HISTORY: Right leg swelling PRIORS: None. TECHNIQUE: Right common femoral, femoral, popliteal and posterior tibial, peroneal and great saphenous veins were evaluated. Flow was assessed with color Doppler, compressibility, assessment of phasic flow and augmentation response. Report prepared by STEFANIA Luevano FINDINGS: RIGHT: 1. Common Femoral Vein: 1.1. Compressibility - Fully compressible: Thrombus - None: Flow - Phasic: Augmentation -Normal: Reflux - None. 2. Femoral Vein: 2.1. Compressibility - Fully compressible: Thrombus - None: Flow - Phasic: Augmentation -Normal: Reflux - None. 3. Popliteal Vein: 3.1. Compressibility - Fully compressible: Thrombus - None: Flow - Phasic: Augmentation -Normal: Reflux - None. 4. Posterior Tibial Vein: 4.1. Compressibility - Fully compressible: Thrombus - None: Flow - Phasic: Augmentation -Normal: Reflux - None. 5. Peroneal Vein: 5.1. Compressibility - Fully compressible: Thrombus - None: Flow - Phasic: Augmentation -Normal: Reflux - None. 6. Great Saphenous Vein: 6.1. Compressibility - Fully compressible: Thrombus -None: Flow - Phasic: Augmentation - Normal: Reflux - None. OTHER FINDINGS: IMPRESSION: No evidence of deep or superficial vein thrombosis of the right lower extremity with excellent venous flow. Normal valve function noted of the right side. Normal venous flow noted in the left common femoral vein.
--- NOTE | 2018-05-18 11:27 | CARD ---
APPROVED REPORT Date of service: 05/15/2018 EKG Measurement Heart [id number] CO [id number] <Conclusion> Normal sinus rhythm Left ventricular hypertrophy with repolarization abnormality Inferior infarct, age undetermined Abnormal ECG
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
--- NOTE | 2018-05-18 12:24 | CP.PCM.PN ---
Subjective - Date & Time of Evaluation Date of Evaluation: 05/18/18 Time of Evaluation: 09:30 - Subjective Subjective: PGY1 Medicine Progress note for Dr. Bergeron Patient was seen and examined at bedside in no acute distress after returning from [facility]. Nurse reports no overnight events. Patient reports continuing bilateral leg pain, unchanged from yesterday. Denies chest pain, shortness of breath, fever, chills, nausea, vomiting. Is having normal bowel movements and has a good appetite. Objective - Vital Signs/Intake and Output Vital Signs (last 24 hours): Temp Pulse Resp BP Pulse Ox 97.7 F 78 20 145/68 97 05/18/18 07:00 05/18/18 07:00 05/18/18 07:00 05/18/18 10:27 05/18/18 07:00 - Medications Medications: Current Medications Aspirin (Ecotrin) 81 mg PO DAILY [facility] Last Admin: 05/18/18 10:27 Dose: 81 mg Atenolol (Tenormin) 50 mg PO DAILY [facility] Last Admin: 05/18/18 10:27 Dose: 50 mg Clopidogrel Bisulfate (Plavix) 75 mg PO DAILY [facility] Last Admin: 05/18/18 10:27 Dose: 75 mg Dextrose (Dextrose 50% Inj) 0 ml IVP .STAT PRN; Protocol PRN Reason: Hypoglycemia Protocol Dextrose (Glutose 15) 0 gm PO .ONCE PRN; Protocol PRN Reason: Hypoglycemia Protocol Furosemide (Lasix) 40 mg PO DAILY [facility] Last Admin: 05/18/18 10:27 Dose: 40 mg Glipizide (Glucotrol) 10 mg PO AMHS [facility] Last Admin: 05/18/18 10:27 Dose: 10 mg Glucagon (Glucagen Diagnostic Kit) 0 mg IM .STAT PRN; Protocol PRN Reason: Hypoglycemia Protocol Heparin Sodium (Porcine) (Heparin) 5,000 units SC Q12 [facility] Last Admin: 05/18/18 10:27 Dose: 5,000 units Vancomycin/Sodium Chloride (Vancomycin 1 Gm/Ns 200 Ml) 1 gm in 200 mls @ 133 mls/hr IVPB Q24H [facility] PRN Reason: Protocol Stop: 05/20/18 21:01 Last Admin: 05/17/18 21:37 Dose: 133 mls/hr Cefazolin Sodium/Dextrose (Ancef Iv 1 Gm Duplex) 1 gm in 50 mls @ 100 mls/hr IVPB Q8H [facility] PRN Reason: Protocol Last Admin: 05/18/18 05:05 Dose: 100 mls/hr Dextrose (Dextrose 5% In Water 1000 Ml) 1,000 mls @ 0 mls/hr IV .Q0M PRN; Protocol; Per Protocol PRN Reason: Hypoglycemia Protocol Ibuprofen (Motrin Tab) 400 mg PO Q6 PRN PRN Reason: Pain, Mild (1-3) Insulin Aspart (Novolog) 0 unit SC ACHS [facility] PRN Reason: Protocol Last Admin: 05/18/18 08:19 Dose: Not Given Insulin Glargine (Lantus) 50 unit SC AMHS [facility] Last Admin: 05/18/18 10:26 Dose: 50 units Lactulose (Enulose) 20 gm PO TID [facility] Last Admin: 05/18/18 11:13 Dose: 20 gm Levetiracetam (Keppra) 500 mg PO BID [facility] Last Admin: 05/18/18 10:27 Dose: 500 mg Levothyroxine Sodium (Synthroid) 75 mcg PO DAILY@0630 [facility] Last Admin: 05/18/18 05:47 Dose: 75 mcg Metformin HCl (Glucophage) 1,000 mg PO BID [facility] Last Admin: 05/18/18 10:27 Dose: 1,000 mg Pantoprazole Sodium (Protonix Ec Tab) 40 mg PO DAILY [facility] Last Admin: 05/18/18 10:27 Dose: 40 mg - Labs Labs: 05/18/18 07:09 05/18/18 07:09 PT 15.7 SECONDS (9.7-12.2) H 05/15/18 22:45 INR 1.4 05/15/18 22:45 - Constitutional Appears: Non-toxic, No Acute Distress - Head Exam Head Exam: ATRAUMATIC, NORMOCEPHALIC - Eye Exam Eye Exam: EOMI, Normal appearance - ENT Exam ENT Exam: Mucous Membranes Moist, Normal Exam - Respiratory Exam Respiratory Exam: Clear to Ausculation Bilateral, NORMAL BREATHING PATTERN. absent: Rales, Rhonchi, Wheezes, Respiratory Distress, Stridor - Cardiovascular Exam Cardiovascular Exam: REGULAR RHYTHM, +S1, +S2. absent: Murmur - GI/Abdominal Exam GI & Abdominal Exam: Distended, Soft, Normal Bowel Sounds. absent: Firm, Guarding, Rigid, Tenderness - Extremities Exam Extremities Exam: Normal Capillary Refill, Pedal Edema Additional comments: bilateral LE edema distal to knee. pedal pulses palpable 2+ (DP, PT). no tenderness on palpation - Neurological Exam Neurological Exam: Altered, Awake, Oriented x3 Additional comments: lethargic. motor and sensation intact - Psychiatric Exam Psychiatric exam: Normal Affect, Normal Mood - Skin Skin Exam: Dry, Intact, Normal Color, Warm Assessment and Plan - Assessment and Plan (Free Text) Assessment: 57yoM who was recently discharged for AMS admitted for AMS and elevated ammonium levels without Hx alcohol use or liver disease. Plan: 1) AMS: 2/2 elevated ammonia vs. LYNDSAY from Pickwickian syndrome vs. autoimmune - CT head (05/15): negative for acute pathology - MRI brain (05/16): no acute pathology, no mass effect (MRI from 05/06/18 also unremarkable) - UDS and BAL negative (05/15) - Dopplers bilateral LE negative for DVT (05/15) * Doppler bilateral carotid (05/06/18): bilateral 20-39% proximal ICA stenosis - Hepatitis panel negative (05/15, 05/16) - f/u HepB surface Ab - Ammonia downtrendin -> 109 -> 74 -> 72 - Lactulose 20mg po tid with goal of 2-3 BMs/day - hold if diarrhea - f/u RF, SUSAN, VitD (05/15): received - f/u EEG (05/18): done, pending report - f/u VitB12, RPR, HIV: ordered - cont Keppra 500 mg PO BID from discharge - Neurology consulted: Dr. Chu - recs appreciated * ruled out CVA - Psychiatry consulted: Dr. Ortez - cannot assess until patient not altered 2) RLE cellulits - R foot and tibia/fibula XR (05/15): soft tissue swelling - CRP 14.5, ESR 72 - Uric acid 3.6 - Dopplers bilateral LE negative for DVT (05/15) - Blood Cx (05/15): no growth at 48hr - ID consulted (Dr. Noyola)- Dr. Chaparro covering for Dr. Noyola. Recs pending - Ancef 1 g IVPB q8h - Vancomycin 1 g IVPB q24h 3) Hyperammonemia - downtrendin -> 109 -> 74 -> 72 - Lactulose 20 mg PO TID - Abd US (05/17): distended gallbladder, but no cholecystitis, no biliary tree dilation 4) Thrombocytopenia - Likely 2/2 liver disease vs. hepatosplenomegaly and sequestration - 108 -> 102 -> 88 -> 88 - Monitor CBC daily 5) CAD s/p 11 stents - Cardiac cath 11/07/17 - Troponin negative - ASA 81 mg PO daily - Plavix 75 mg PO daily - Cardiology consulted: Dr. Patel - help appreciated 6) T2DM, chronic, poorly controlled - HgbA1c 9.4 on 05/05/18, pt's family reports hypoglycemic episodes - Lantus 50u SC AMHS - Metformin 1000mg po BID - Glipizide 10 mg PO AMHS - ISS high dose - Hypoglycemia protocol 7) CHF - Echo 05/06/18: EF 55% - CXR: Prominent interstitial markings may reflect vascular crowding due to hypoinflation versus mild pulmonary venous congestion. - BNP: 136 - Lasix 40 mg PO BID 8) HTN, chronic - Vitals q4hrs - Atenolol 50 mg PO daily 9) HLD, chronic - Home med: Welchol 625 mg TID 10) Hypothyroidism - TSH 1.27 - Synthroid 50 mcg PO daily 11) PPX - IVF: not indicated - GI ppx: Protonix 40 mg PO QD - VTE ppx: Heparin 5000u SC q12h, SCD on L - Diet: heart healthy (low carb, low sodium)- NPO until abd u/s complete - Code status: full code - PT consult - OT consult d/w Dr. Rubio Cole PGY-1
--- NOTE | 2018-05-18 13:21 | CP.PCM.PN ---
<Luan Pickett Niels - Last Filed: 05/18/18 15:55> Subjective - Date & Time of Evaluation Date of Evaluation: 05/18/18 Time of Evaluation: 11:00 - Subjective Subjective: Cardiology progress note ( Dr. Patel's service) Patient was seen and examined at bedside. Patient reports that he is doing well with no acute changes. Patient denies chest pain, palpitations, SOB, dizziness, and headache. Patient is oriented to place and person. Objective - Vital Signs/Intake and Output Vital Signs (last 24 hours): Temp Pulse Resp BP Pulse Ox 97.7 F 78 20 145/68 97 05/18/18 07:00 05/18/18 07:00 05/18/18 07:00 05/18/18 10:27 05/18/18 07:00 - Medications Medications: Current Medications Aspirin (Ecotrin) 81 mg PO DAILY [facility] Last Admin: 05/18/18 10:27 Dose: 81 mg Atenolol (Tenormin) 50 mg PO DAILY [facility] Last Admin: 05/18/18 10:27 Dose: 50 mg Clopidogrel Bisulfate (Plavix) 75 mg PO DAILY [facility] Last Admin: 05/18/18 10:27 Dose: 75 mg Dextrose (Dextrose 50% Inj) 0 ml IVP .STAT PRN; Protocol PRN Reason: Hypoglycemia Protocol Dextrose (Glutose 15) 0 gm PO .ONCE PRN; Protocol PRN Reason: Hypoglycemia Protocol Furosemide (Lasix) 40 mg PO DAILY [facility] Last Admin: 05/18/18 10:27 Dose: 40 mg Glipizide (Glucotrol) 10 mg PO AMHS [facility] Last Admin: 05/18/18 10:27 Dose: 10 mg Glucagon (Glucagen Diagnostic Kit) 0 mg IM .STAT PRN; Protocol PRN Reason: Hypoglycemia Protocol Heparin Sodium (Porcine) (Heparin) 5,000 units SC Q12 [facility] Last Admin: 05/18/18 10:27 Dose: 5,000 units Vancomycin/Sodium Chloride (Vancomycin 1 Gm/Ns 200 Ml) 1 gm in 200 mls @ 133 mls/hr IVPB Q24H [facility] PRN Reason: Protocol Stop: 05/20/18 21:01 Last Admin: 05/17/18 21:37 Dose: 133 mls/hr Cefazolin Sodium/Dextrose (Ancef Iv 1 Gm Duplex) 1 gm in 50 mls @ 100 mls/hr IVPB Q8H [facility] PRN Reason: Protocol Last Admin: 05/18/18 13:09 Dose: 100 mls/hr Dextrose (Dextrose 5% In Water 1000 Ml) 1,000 mls @ 0 mls/hr IV .Q0M PRN; Protocol; Per Protocol PRN Reason: Hypoglycemia Protocol Ibuprofen (Motrin Tab) 400 mg PO Q6 PRN PRN Reason: Pain, Mild (1-3) Insulin Aspart (Novolog) 0 unit SC ACHS [facility] PRN Reason: Protocol Last Admin: 05/18/18 12:30 Dose: 6 unit Insulin Glargine (Lantus) 50 unit SC [facility] Last Admin: 05/18/18 10:26 Dose: 50 units Lactulose (Enulose) 20 gm PO TID [facility] Last Admin: 05/18/18 13:09 Dose: 20 gm Levetiracetam (Keppra) 500 mg PO BID [facility] Last Admin: 05/18/18 10:27 Dose: 500 mg Levothyroxine Sodium (Synthroid) 75 mcg PO DAILY@0630 [facility] Last Admin: 05/18/18 05:47 Dose: 75 mcg Metformin HCl (Glucophage) 1,000 mg PO BID [facility] Last Admin: 05/18/18 10:27 Dose: 1,000 mg Pantoprazole Sodium (Protonix Ec Tab) 40 mg PO DAILY [facility] Last Admin: 05/18/18 10:27 Dose: 40 mg - Labs Labs: 05/18/18 07:09 05/18/18 07:09 PT 15.7 SECONDS (9.7-12.2) H 05/15/18 22:45 INR 1.4 05/15/18 22:45 - Constitutional Appears: Well, No Acute Distress - Head Exam Head Exam: ATRAUMATIC, NORMAL INSPECTION - Eye Exam Eye Exam: EOMI, Normal appearance - ENT Exam ENT Exam: Mucous Membranes Moist - Respiratory Exam Respiratory Exam: Clear to Ausculation Bilateral, NORMAL BREATHING PATTERN. absent: Prolonged Expiratory Phase, Rhonchi, Respiratory Distress - Cardiovascular Exam Cardiovascular Exam: REGULAR RHYTHM, +S1, +S2 - GI/Abdominal Exam GI & Abdominal Exam: Soft, Normal Bowel Sounds. absent: Firm, Guarding, Rigid, Tenderness - Extremities Exam Extremities Exam: Tenderness Additional comments: Right leg is tender on palpation, warm to touch and erythematous Non-pitting edema - Neurological Exam Neurological Exam: Alert, Awake - Psychiatric Exam Psychiatric exam: Normal Affect Assessment and Plan (1) CAD (coronary artery disease) Assessment & Plan: Patient is a 57 year old male with past medical history of CAD s/p 11 stents, T2DM, CHF, HTN, HLD, and hypothyroid who is admitted for AMS. cardiology consult was placed due to patient's significant history of CAD: Management/Medications: * ASA 81mg PO daily * Plavix 75mg PO daily * Atenolol 50mg PO daily * Echocardiogram (): EF of 55%, Mild concentric left ventricle hypertrophy. Aortic valve calcifications. The left ventricle is normal size. Trace of Pulmonic, triscuspid, aortic and mitral regurgitation. * Cardiac cath (11/07/17): Estimated EJ (55-60%). Midportion of the RCA, 70% stenosed. Circumflex artery is 50-60% stenosed. The second diagonal 90% stenosed. Drug-eluting stent in the RCA and PTCA of diagonal vessel through LAD stent * Negative troponin on admission and no EKG changes * Continue present management All plans and management discussed with Dr. Patel Status: Chronic <Trent Patel - Last Filed: 05/18/18 23:11> Objective - Vital Signs/Intake and Output Vital Signs (last 24 hours): Temp Pulse Resp BP Pulse Ox 98.0 F 76 20 143/75 96 05/18/18 16:00 05/18/18 16:00 05/18/18 16:00 05/18/18 16:00 05/18/18 16:00 Intake and Output: 05/18/18 05/19/18 18:59 06:59 Intake Total 720 Balance 720 - Medications Medications: Current Medications Aspirin (Ecotrin) 81 mg PO DAILY [facility] Last Admin: 05/18/18 10:27 Dose: 81 mg Atenolol (Tenormin) 50 mg PO DAILY [facility] Last Admin: 05/18/18 10:27 Dose: 50 mg Clopidogrel Bisulfate (Plavix) 75 mg PO DAILY [facility] Last Admin: 05/18/18 10:27 Dose: 75 mg Dextrose (Dextrose 50% Inj) 0 ml IVP .STAT PRN; Protocol PRN Reason: Hypoglycemia Protocol Dextrose (Glutose 15) 0 gm PO .ONCE PRN; Protocol PRN Reason: Hypoglycemia Protocol Furosemide (Lasix) 40 mg PO DAILY [facility] Last Admin: 05/18/18 10:27 Dose: 40 mg Glipizide (Glucotrol) 10 mg PO AMHS [facility] Last Admin: 05/18/18 21:24 Dose: 10 mg Glucagon (Glucagen Diagnostic Kit) 0 mg IM .STAT PRN; Protocol PRN Reason: Hypoglycemia Protocol Heparin Sodium (Porcine) (Heparin) 5,000 units SC Q12 [facility] Last Admin: 05/18/18 21:24 Dose: 5,000 units Cefazolin Sodium/Dextrose (Ancef Iv 1 Gm Duplex) 1 gm in 50 mls @ 100 mls/hr IVPB Q8H [facility] PRN Reason: Protocol Last Admin: 05/18/18 20:44 Dose: 100 mls/hr Dextrose (Dextrose 5% In Water 1000 Ml) 1,000 mls @ 0 mls/hr IV .Q0M PRN; Protocol; Per Protocol PRN Reason: Hypoglycemia Protocol Ibuprofen (Motrin Tab) 400 mg PO Q6 PRN PRN Reason: Pain, Mild (1-3) Insulin Aspart (Novolog) [address] [facility] PRN Reason: Protocol Last Admin: 05/18/18 21:26 Dose: Not Given Insulin Glargine (Lantus) 50 unit SC [facility] Last Admin: 05/18/18 21:29 Dose: 50 units Lactulose (Enulose) 20 gm PO TID [facility] Last Admin: 05/18/18 18:48 Dose: 20 gm Levetiracetam (Keppra) 500 mg PO BID [facility] Last Admin: 05/18/18 17:46 Dose: 500 mg Levothyroxine Sodium (Synthroid) 75 mcg PO DAILY@0630 [facility] Last Admin: 05/18/18 05:47 Dose: 75 mcg Metformin HCl (Glucophage) 1,000 mg PO BID [facility] Last Admin: 05/18/18 17:46 Dose: 1,000 mg Pantoprazole Sodium (Protonix Ec Tab) 40 mg PO DAILY [facility] Last Admin: 05/18/18 10:27 Dose: 40 mg - Labs Labs: 05/18/18 07:09 05/18/18 07:09 PT 15.7 SECONDS (9.7-12.2) H 05/15/18 22:45 INR 1.4 05/15/18 22:45 Assessment and Plan - Assessment and Plan (Free Text) Assessment: Patient seen and evaluated personally by me Plan of care d/w the resident and as documented
[2018-05-18] MEDS ORDERED: Potassium Chloride 20 mEq ER Tab PO ONE (17:45)
[2018-05-18] MEDS: Vancomycin 1 gm/NS 200 ml 1 GM/200 ML BAG IVPB SCH (21:44)
--- NOTE | 2018-05-18 23:50 | CP.PCM.PN ---
Subjective - Date & Time of Evaluation Date of Evaluation: 05/18/18 Time of Evaluation: 21:30 - Subjective Subjective: Patient is doing better, more awake, more alert, able to walk with help to the Bathroom. Serum ammonia is down to 72, it was 112 2 days ago. He is suffering from Ammoniacal Encephalopathy. Normal uric acid. Still on Vancomycin and Ancef. Objective - Vital Signs/Intake and Output Vital Signs (last 24 hours): Temp Pulse Resp BP Pulse Ox 98.0 F 76 20 143/75 96 05/18/18 16:00 05/18/18 16:00 05/18/18 16:00 05/18/18 16:00 05/18/18 16:00 Intake and Output: 05/18/18 05/19/18 18:59 06:59 Intake Total 720 Balance 720 - Medications Medications: Current Medications Aspirin (Ecotrin) 81 mg PO DAILY [facility] Last Admin: 05/18/18 10:27 Dose: 81 mg Atenolol (Tenormin) 50 mg PO DAILY [facility] Last Admin: 05/18/18 10:27 Dose: 50 mg Clopidogrel Bisulfate (Plavix) 75 mg PO DAILY [facility] Last Admin: 05/18/18 10:27 Dose: 75 mg Dextrose (Dextrose 50% Inj) 0 ml IVP .STAT PRN; Protocol PRN Reason: Hypoglycemia Protocol Dextrose (Glutose 15) 0 gm PO .ONCE PRN; Protocol PRN Reason: Hypoglycemia Protocol Furosemide (Lasix) 40 mg PO DAILY [facility] Last Admin: 05/18/18 10:27 Dose: 40 mg Glipizide (Glucotrol) 10 mg PO [facility] Last Admin: 05/18/18 21:24 Dose: 10 mg Glucagon (Glucagen Diagnostic Kit) 0 mg IM .STAT PRN; Protocol PRN Reason: Hypoglycemia Protocol Heparin Sodium (Porcine) (Heparin) 5,000 units SC Q12 [facility] Last Admin: 05/18/18 21:24 Dose: 5,000 units Cefazolin Sodium/Dextrose (Ancef Iv 1 Gm Duplex) 1 gm in 50 mls @ 100 mls/hr IVPB Q8H [facility] PRN Reason: Protocol Last Admin: 05/18/18 20:44 Dose: 100 mls/hr Dextrose (Dextrose 5% In Water 1000 Ml) 1,000 mls @ 0 mls/hr IV .Q0M PRN; Protocol; Per Protocol PRN Reason: Hypoglycemia Protocol Ibuprofen (Motrin Tab) 400 mg PO Q6 PRN PRN Reason: Pain, Mild (1-3) Insulin Aspart (Novolog) 0 unit SC ACHS [facility] PRN Reason: Protocol Last Admin: 05/18/18 21:26 Dose: Not Given Insulin Glargine (Lantus) 50 unit SC [facility] Last Admin: 05/18/18 21:29 Dose: 50 units Lactulose (Enulose) 20 gm PO TID [facility] Last Admin: 05/18/18 18:48 Dose: 20 gm Levetiracetam (Keppra) 500 mg PO BID [facility] Last Admin: 05/18/18 17:46 Dose: 500 mg Levothyroxine Sodium (Synthroid) 75 mcg PO DAILY@0630 [facility] Last Admin: 05/18/18 05:47 Dose: 75 mcg Metformin HCl (Glucophage) 1,000 mg PO BID [facility] Last Admin: 05/18/18 17:46 Dose: 1,000 mg Pantoprazole Sodium (Protonix Ec Tab) 40 mg PO DAILY [facility] Last Admin: 05/18/18 10:27 Dose: 40 mg - Labs Labs: 05/18/18 07:09 05/18/18 07:09 PT 15.7 SECONDS (9.7-12.2) H 05/15/18 22:45 INR 1.4 05/15/18 22:45 Assessment and Plan (1) Cellulitis Assessment & Plan: Erysipelas in the right Ankle and foot is improving Status: Acute (2) Confusion Status: Acute (3) CAD (coronary artery disease) Status: Chronic (4) Chest pain Status: Acute (5) Hyperglycemia Status: Acute (6) IDDM (insulin dependent diabetes mellitus) Status: Acute (7) TIA (transient ischemic attack) Status: Acute (8) Diabetes mellitus Status: Chronic (9) CVA (cerebral vascular accident) Assessment & Plan: Ruled out by a negative MRI Brain. Status: Acute (10) Seizures Assessment & Plan: EEG is Pending. Status: Acute (11) Encephalopathy acute Assessment & Plan: Due to high serum Ammonia, Ammonia is regressing on Oral Lactulose and on Treatment of Erysipelas Status: Acute
[2018-05-19] MEDS: ceFAZolin IV 1 gm in Dextrose 1 GM/50 ML BAG IVPB SCH ×2 (05:27→13:22)
[2018-05-19] MEDS: Levothyroxine 75 MCG TAB PO SCH (05:31)
[2018-05-19 06:55] LABS: BASO # 0.1 K/uL (0.0-0.2); BASO % 1.3 % (0.0-2.0); EOS # 0.2 K/uL (0.0-0.7); EOS % 3.4 % (0.0-4.0); HEMOGLOBIN 11.7 g/dL (12.0-18.0); LYMPH # 1.8 K/uL (1.0-4.3); LYMPH % 33.9 % (20.0-40.0); MEAN CELL VOLUME 91.1 fL (80.0-94.0); MEAN CORPUSCULAR HGB CONC 35.1 g/dL (33.0-37.0); MEAN PLATELET VOLUME 10.3 fL (7.2-11.7); MONO # 0.7 K/uL (0.0-0.8); MONO % 13.6 % (0.0-10.0); NEUT # 2.6 K/uL (1.8-7.0); NEUT % 47.8 % (50.0-75.0); NRBC % 0.1 % (0.0-2.0); RBC 3.66 Mil/uL (4.40-5.90); RED CELL DISTRIBUTION WIDTH 14.3 % (11.5-14.5); WHITE BLOOD COUNT 5.4 K/uL (4.8-10.8)
[2018-05-19 07:03] LABS: ALB/GLOB RATIO 0.9 (1.0-2.1); ALT/SGPT 42 U/L (21-72); AST/SGOT 59 U/L (17-59); BLOOD UREA NITROGEN 8 mg/dL (9-20); CALCIUM 8.3 mg/dl (8.6-10.4); GFR NON-AFRICAN AMERICAN > 60
[2018-05-19] MEDS: (Novolog) Insulin Aspart, Recombinant 100 u/ml 10 ml vial SC SCH ×3 (07:38→17:17)
[2018-05-19] MEDS: Pantoprazole 40 mg EC Tab PO SCH (09:42)
[2018-05-19] MEDS ORDERED: Potassium Chloride 20 mEq ER Tab PO ONE (09:57)
[2018-05-19] MEDS: (Lantus) Insulin Glargine, Recombinant SC SCH (09:59)
--- NOTE | 2018-05-19 13:34 | CP.PCM.PN ---
Subjective - Date & Time of Evaluation Date of Evaluation: 05/19/18 Time of Evaluation: 10:30 - Subjective Subjective: Cardiology progress note ( Dr. Patel's service) Patient was seen and examined at bedside. Patient seemed mildly agitated but not confused. Patient denies any acute issues or new complaint. Patient denies any symptoms of chest pain, palpitations, diaphoresis or dyspnea. Patient is able to ambulate without any problems. Objective - Vital Signs/Intake and Output Vital Signs (last 24 hours): Temp Pulse Resp BP Pulse Ox 97.9 F 81 20 148/80 96 05/19/18 07:47 05/19/18 07:47 05/19/18 07:47 05/19/18 09:51 05/19/18 07:47 - Medications Medications: Current Medications Aspirin (Ecotrin) 81 mg PO DAILY [facility] Last Admin: 05/19/18 09:42 Dose: 81 mg Atenolol (Tenormin) 50 mg PO DAILY [facility] Last Admin: 05/19/18 09:43 Dose: 50 mg Clopidogrel Bisulfate (Plavix) 75 mg PO DAILY [facility] Last Admin: 05/19/18 09:42 Dose: 75 mg Dextrose (Dextrose 50% Inj) 0 ml IVP .STAT PRN; Protocol PRN Reason: Hypoglycemia Protocol Dextrose (Glutose 15) 0 gm PO .ONCE PRN; Protocol PRN Reason: Hypoglycemia Protocol Furosemide (Lasix) 40 mg PO DAILY [facility] Last Admin: 05/19/18 09:51 Dose: 40 mg Glipizide (Glucotrol) 10 mg PO AMHS [facility] Last Admin: 05/19/18 09:42 Dose: 10 mg Glucagon (Glucagen Diagnostic Kit) 0 mg IM .STAT PRN; Protocol PRN Reason: Hypoglycemia Protocol Heparin Sodium (Porcine) (Heparin) 5,000 units SC Q12 [facility] Last Admin: 05/19/18 09:42 Dose: 5,000 units Cefazolin Sodium/Dextrose (Ancef Iv 1 Gm Duplex) 1 gm in 50 mls @ 100 mls/hr IVPB Q8H [facility] PRN Reason: Protocol Last Admin: 05/19/18 13:22 Dose: 100 mls/hr Dextrose (Dextrose 5% In Water 1000 Ml) 1,000 mls @ 0 mls/hr IV .Q0M PRN; Protocol; Per Protocol PRN Reason: Hypoglycemia Protocol Ibuprofen (Motrin Tab) 400 mg PO Q6 PRN PRN Reason: Pain, Mild (1-3) Insulin Aspart (Novolog) 0 unit SC ACHS [facility] PRN Reason: Protocol Last Admin: 05/19/18 12:09 Dose: 6 unit Insulin Glargine (Lantus) 50 unit SC AMHS [facility] Last Admin: 05/19/18 09:59 Dose: 50 units Lactulose (Enulose) 20 gm PO TID [facility] Last Admin: 05/19/18 13:22 Dose: 20 gm Levetiracetam (Keppra) 500 mg PO BID [facility] Last Admin: 05/19/18 09:43 Dose: 500 mg Levothyroxine Sodium (Synthroid) 75 mcg PO DAILY@0630 [facility] Last Admin: 05/19/18 05:31 Dose: 75 mcg Metformin HCl (Glucophage) 1,000 mg PO BID [facility] Last Admin: 05/19/18 09:42 Dose: 1,000 mg Pantoprazole Sodium (Protonix Ec Tab) 40 mg PO DAILY [facility] Last Admin: 05/19/18 09:42 Dose: 40 mg - Labs Labs: 05/19/18 06:26 05/19/18 06:26 PT 15.7 SECONDS (9.7-12.2) H 05/15/18 22:45 INR 1.4 05/15/18 22:45 - Constitutional Appears: Well, No Acute Distress - Head Exam Head Exam: ATRAUMATIC, NORMAL INSPECTION - Eye Exam Eye Exam: EOMI, Normal appearance - ENT Exam ENT Exam: Mucous Membranes Moist - Respiratory Exam Respiratory Exam: Clear to Ausculation Bilateral, NORMAL BREATHING PATTERN. absent: Chest Wall Tenderness, Rhonchi, Wheezes - Cardiovascular Exam Cardiovascular Exam: REGULAR RHYTHM, +S1, +S2 - GI/Abdominal Exam GI & Abdominal Exam: Soft, Normal Bowel Sounds. absent: Distended, Firm, Guarding, Rigid, Tenderness - Extremities Exam Extremities Exam: Normal Inspection. absent: Calf Tenderness, Pedal Edema - Neurological Exam Neurological Exam: Alert, Awake, Oriented x3 - Psychiatric Exam Psychiatric exam: Agitated, Depressed - Skin Skin Exam: Normal Color Assessment and Plan (1) CAD (coronary artery disease) Assessment & Plan: Patient is a 57 year old male with past medical history of CAD s/p 11 stents, T2DM, CHF, HTN, HLD, and hypothyroid who is admitted for AMS and cellulitis . Cardiology consult was placed due to patient's significant history of CAD: Management/Medications: * ASA 81mg PO daily * Plavix 75mg PO daily * Atenolol 50mg PO daily * Echocardiogram (): EF of 55%, Mild concentric left ventricle hypertrophy. Aortic valve calcifications. The left ventricle is normal size. Trace of Pulmonic, triscuspid, aortic and mitral regurgitation. * Cardiac cath (11/07/17): Estimated EJ (55-60%). Midportion of the RCA, 70% stenosed. Circumflex artery is 50-60% stenosed. The second diagonal 90% stenosed. Drug-eluting stent in the RCA and PTCA of diagonal vessel through LAD stent * Negative troponin on admission and no EKG changes * Continue present management * Will continue to follow admission course for any changes All plans and management discussed with Dr. Patel Status: Chronic
--- NOTE | 2018-05-19 15:27 | CP.PCM.PN ---
Subjective - Date & Time of Evaluation Date of Evaluation: 05/19/18 Time of Evaluation: 08:30 - Subjective Subjective: PGY-1 Medicine Progress Note for Dr. bolden Patient was seen and examined at bedside in no acute distress. Nurse reports no overnight events. Patient reports no acute changes. Is having bowel movements, but unknown number of episodes. Denies chest pain, shortness of breath, fever, chills, nausea, vomiting. Objective - Vital Signs/Intake and Output Vital Signs (last 24 hours): Temp Pulse Resp BP Pulse Ox 97.9 F 81 20 148/80 96 05/19/18 07:47 05/19/18 07:47 05/19/18 07:47 05/19/18 09:51 05/19/18 07:47 Intake and Output: 05/19/18 05/19/18 06:59 18:59 Intake Total 600 Balance 600 - Medications Medications: Current Medications Aspirin (Ecotrin) 81 mg PO DAILY [facility] Last Admin: 05/19/18 09:42 Dose: 81 mg Atenolol (Tenormin) 50 mg PO DAILY [facility] Last Admin: 05/19/18 09:43 Dose: 50 mg Clopidogrel Bisulfate (Plavix) 75 mg PO DAILY [facility] Last Admin: 05/19/18 09:42 Dose: 75 mg Dextrose (Dextrose 50% Inj) 0 ml IVP .STAT PRN; Protocol PRN Reason: Hypoglycemia Protocol Dextrose (Glutose 15) 0 gm PO .ONCE PRN; Protocol PRN Reason: Hypoglycemia Protocol Furosemide (Lasix) 40 mg PO DAILY [facility] Last Admin: 05/19/18 09:51 Dose: 40 mg Glipizide (Glucotrol) 10 mg PO [facility] Last Admin: 05/19/18 09:42 Dose: 10 mg Glucagon (Glucagen Diagnostic Kit) 0 mg IM .STAT PRN; Protocol PRN Reason: Hypoglycemia Protocol Heparin Sodium (Porcine) (Heparin) 5,000 units SC Q12 [facility] Last Admin: 05/19/18 09:42 Dose: 5,000 units Cefazolin Sodium/Dextrose (Ancef Iv 1 Gm Duplex) 1 gm in 50 mls @ 100 mls/hr IVPB Q8H [facility] PRN Reason: Protocol Last Admin: 05/19/18 13:22 Dose: 100 mls/hr Dextrose (Dextrose 5% In Water 1000 Ml) 1,000 mls @ 0 mls/hr IV .Q0M PRN; Protocol; Per Protocol PRN Reason: Hypoglycemia Protocol Ibuprofen (Motrin Tab) 400 mg PO Q6 PRN PRN Reason: Pain, Mild (1-3) Insulin Aspart (Novolog) 0 unit SC ACHS [facility] PRN Reason: Protocol Last Admin: 05/19/18 12:09 Dose: 6 unit Insulin Glargine (Lantus) 50 unit SC [facility] Last Admin: 05/19/18 09:59 Dose: 50 units Lactulose (Enulose) 20 gm PO TID [facility] Last Admin: 05/19/18 13:22 Dose: 20 gm Levetiracetam (Keppra) 500 mg PO BID [facility] Last Admin: 05/19/18 09:43 Dose: 500 mg Levothyroxine Sodium (Synthroid) 75 mcg PO DAILY@0630 [facility] Last Admin: 05/19/18 05:31 Dose: 75 mcg Metformin HCl (Glucophage) 1,000 mg PO BID [facility] Last Admin: 05/19/18 09:42 Dose: 1,000 mg Pantoprazole Sodium (Protonix Ec Tab) 40 mg PO DAILY [facility] Last Admin: 05/19/18 09:42 Dose: 40 mg - Labs Labs: 05/19/18 06:26 05/19/18 06:26 PT 15.7 SECONDS (9.7-12.2) H 05/15/18 22:45 INR 1.4 05/15/18 22:45 - Constitutional Appears: Non-toxic, No Acute Distress - Head Exam Head Exam: ATRAUMATIC, NORMOCEPHALIC - Eye Exam Eye Exam: EOMI, Normal appearance - ENT Exam ENT Exam: Mucous Membranes Moist, Normal Exam - Respiratory Exam Respiratory Exam: Clear to Ausculation Bilateral, NORMAL BREATHING PATTERN. absent: Rales, Rhonchi, Respiratory Distress, Stridor - Cardiovascular Exam Cardiovascular Exam: REGULAR RHYTHM, +S1, +S2. absent: Murmur - GI/Abdominal Exam GI & Abdominal Exam: Soft, Normal Bowel Sounds. absent: Firm, Guarding, Rigid, Tenderness, Rebound - Extremities Exam Extremities Exam: Full ROM, Normal Capillary Refill Additional comments: bilateral LE edema distal to knee. peripheral pulses palpable 2+ (radial, PT). no tenderness on palpation of LE. - Neurological Exam Neurological Exam: Awake, Oriented x3 Additional comments: lethargic. able to follow commands - motor and sensation intact - Psychiatric Exam Psychiatric exam: Normal Affect, Normal Mood - Skin Skin Exam: Dry, Intact, Normal Color, Warm Assessment and Plan - Assessment and Plan (Free Text) Assessment: 57yoM who was recently discharged for AMS admitted for AMS and elevated ammonium levels without Hx alcohol use or liver disease. Plan: 1) Metabolic encephalopathy - CT head (05/15): negative for acute pathology - MRI brain (05/16): no acute pathology, no mass effect (MRI from 05/06/18 also unremarkable) - UDS and BAL negative (05/15) - Dopplers bilateral LE negative for DVT (05/15) * Doppler bilateral carotid (05/06/18): bilateral 20-39% proximal ICA stenosis - Hepatitis panel negative (05/15, 05/16) - f/u HepB surface Ab - Ammonia downtrendin -> 109 -> 74 -> 72 - Lactulose 20mg po tid with goal of 2-3 BMs/day - hold if diarrhea - f/u RF, SUSAN, VitD (05/15): received - f/u EEG (05/18): done, pending report - f/u VitB12, RPR, HIV: ordered - cont Keppra 500 mg PO BID from discharge - Neurology consulted: Dr. Chu - recs appreciated * ruled out CVA - Psychiatry consulted: Dr. Ortez - cannot assess until patient not altered 2) RLE cellulits - R foot and tibia/fibula XR (05/15): soft tissue swelling - CRP 14.5, ESR 72 - Uric acid 3.6 - Dopplers bilateral LE negative for DVT (05/15) - Blood Cx (05/15): no growth at 48hr - ID consulted (Dr. Noyola)- Dr. Chaparro covering for Dr. Noyola. Recs pending - Ancef 1 g IVPB q8h - Vancomycin 1 g IVPB q24h 3) Hyperammonemia - downtrendin -> 109 -> 74 -> 72 - Lactulose 20 mg PO TID - Abd US (05/17): distended gallbladder, but no cholecystitis, no biliary tree dilation 4) Thrombocytopenia - Likely 2/2 liver disease vs. hepatosplenomegaly and sequestration - 108 -> 102 -> 88 -> 88 - Monitor CBC daily 5) CAD s/p 11 stents - Cardiac cath 11/07/17 - Troponin negative - ASA 81 mg PO daily - Plavix 75 mg PO daily - Cardiology consulted: Dr. Patel - help appreciated 6) T2DM, chronic, poorly controlled - HgbA1c 9.4 on 05/05/18, pt's family reports hypoglycemic episodes - Lantus 50u SC [facility] - Metformin 1000mg po BID - Glipizide 10 mg PO [facility] - ISS high dose - Hypoglycemia protocol 7) CHF diastolic, chronic - Echo 05/06/18: EF 55% - CXR: Prominent interstitial markings may reflect vascular crowding due to hypoinflation versus mild pulmonary venous congestion. - BNP: 136 - Lasix 40 mg PO BID 8) HTN, chronic - Vitals q4hrs - Atenolol 50 mg PO daily 9) HLD, chronic - Home med: Welchol 625 mg TID 10) Hypothyroidism - TSH 1.27 - Synthroid 50 mcg PO daily 11) Morbid obesity - HHD (low carb, low sodium) 12) PPX - IVF: not indicated - GI ppx: Protonix 40 mg PO QD - VTE ppx: Heparin 5000u SC q12h, SCD on L - Diet: heart healthy (low carb, low sodium) - Code status: full code - PT consult - OT consult d/w Dr. Rubio Cole PGY-1
[2018-05-19 16:07] VITALS: BP 132/70; PULSE 72; TEMP 97.5; O2SAT 98
--- NOTE | 2018-05-19 20:33 | CP.PCM.DIS ---
Provider - Provider Date of Admission: 05/15/18 18:29 Attending physician: Ventura Bergeron Jr, MD Time Spent in preparation of Discharge (in minutes): 60 Diagnosis - Discharge Diagnosis (1) Metabolic encephalopathy Status: Acute (2) Morbid obesity Status: Acute Hospital Course - Lab Results Lab Results: Micro Results 05/15/18 17:45 Blood Blood Culture - Preliminary NO GROWTH AFTER 3 DAYS 05/15/18 19:15 Blood Blood Culture - Preliminary NO GROWTH AFTER 3 DAYS 05/15/18 19:12 Urine,Clean Catch Urine Culture - Final No Growth (<1,000 CFU/ML) Most Recent Lab Values WBC 5.4 K/uL (4.8-10.8) 05/19/18 06:26 RBC 3.66 Mil/uL (4.40-5.90) L 05/19/18 06:26 Hgb 11.7 g/dL (12.0-18.0) L 05/19/18 06:26 Hct 33.3 % (35.0-51.0) L 05/19/18 06:26 MCV 91.1 fL (80.0-94.0) 05/19/18 06:26 MCH 32.0 pg (27.0-31.0) H 05/19/18 06:26 MCHC 35.1 g/dL (33.0-37.0) 05/19/18 06:26 RDW 14.3 % (11.5-14.5) 05/19/18 06:26 Plt Count 86 K/uL (130-400) L 05/19/18 06:26 MPV 10.3 fL (7.2-11.7) 05/19/18 06:26 Neut % (Auto) 47.8 % (50.0-75.0) L 05/19/18 06:26 Lymph % (Auto) 33.9 % (20.0-40.0) 05/19/18 06:26 [place] % (Auto) 13.6 % (0.0-10.0) H 05/19/18 06:26 Eos % (Auto) 3.4 % (0.0-4.0) 05/19/18 06:26 Baso % (Auto) 1.3 % (0.0-2.0) 05/19/18 06:26 Neut # (Auto) 2.6 K/uL (1.8-7.0) 05/19/18 06:26 Lymph # (Auto) 1.8 K/uL (1.0-4.3) 05/19/18 06:26 [place] # (Auto) 0.7 K/uL (0.0-0.8) 05/19/18 06:26 Eos # (Auto) 0.2 K/uL (0.0-0.7) 05/19/18 06:26 Baso # (Auto) 0.1 K/uL (0.0-0.2) 05/19/18 06:26 ESR 72 mm/hr (0-15) H 05/15/18 18:00 PT 15.7 SECONDS (9.7-12.2) H 05/15/18 22:45 INR 1.4 05/15/18 22:45 Sodium 140 mmol/L (132-148) 05/19/18 06:26 Potassium 3.5 mmol/L (3.6-5.2) L 05/19/18 06:26 Chloride 109 mmol/L (98-107) H 05/19/18 06:26 Carbon Dioxide 25 mmol/L (22-30) 05/19/18 06:26 Anion Gap 10 (10-20) 05/19/18 06:26 BUN 8 mg/dL (9-20) L 05/19/18 06:26 Creatinine 0.5 mg/dL (0.8-1.5) L 05/19/18 06:26 Est GFR ( Amer) > 60 05/19/18 06:26 Est GFR (Non-Af Amer) > 60 05/19/18 06:26 POC Glucose (mg/dL) 308 mg/dL (65-110) H 05/19/18 11:31 Random Glucose 99 mg/dL (75-110) 05/19/18 06:26 Uric Acid 4.6 mg/dL (3.5-8.5) 05/18/18 07:09 Calcium 8.3 mg/dl (8.6-10.4) L 05/19/18 06:26 Phosphorus 3.4 mg/dL (2.5-4.5) 05/19/18 06:26 Magnesium 1.8 mg/dL (1.6-2.3) 05/19/18 06:26 Total Bilirubin 0.7 mg/dL (0.2-1.3) 05/19/18 06:26 AST 59 U/L (17-59) 05/19/18 06:26 ALT 42 U/L (21-72) 05/19/18 06:26 Alkaline Phosphatase 88 U/L (38-126) 05/19/18 06:26 Ammonia 71 umol/L (9-33) H 05/19/18 06:26 Troponin I < 0.0120 ng/mL (0.00-0.120) 05/15/18 18:00 C-Reactive Protein 14.50 mg/L (0.0-9.9) H 05/15/18 18:44 NT-Pro-B Natriuret Pep 136 pg/mL (0-900) 05/15/18 18:00 Total Protein 6.5 g/dL (6.3-8.3) 05/19/18 06:26 Albumin 3.0 g/dL (3.5-5.0) L 05/19/18 06:26 Globulin 3.5 gm/dL (2.2-3.9) 05/19/18 06:26 Albumin/Globulin Ratio 0.9 (1.0-2.1) L 05/19/18 06:26 Triglycerides 105 mg/dL (0-149) 05/15/18 18:44 Cholesterol 172 mg/dL (0-199) 05/15/18 18:44 LDL Cholesterol Direct 100 mg/dL (0-129) 05/15/18 18:44 HDL Cholesterol 37 mg/dL (30-70) 05/15/18 18:44 Vitamin B12 551 pg/mL (239-931) 05/18/18 13:54 25-OH Vitamin D Total 15.9 NG/ML (30.0-100.0) L 05/19/18 06:26 25-Hydroxy Vitamin D2 19 ng/mL 05/15/18 18:44 25-Hydroxy Vitamin D3 7 ng/mL 05/15/18 18:44 Free T4 1.12 ng/dL (0.78-2.19) 05/16/18 10:04 TSH 3rd Generation 2.28 mIU/L (0.46-4.68) 05/16/18 06:46 Urine Color Yellow (YELLOW) 05/15/18 19:12 Urine Clarity Clear (Clear) 05/15/18 19:12 Urine pH 6.0 (5.0-8.0) 05/15/18 19:12 Ur Specific [place] 1.021 (1.003-1.030) 05/15/18 19:12 Urine Protein Negative mg/dL (NEGATIVE) 05/15/18 19:12 Urine Glucose (UA) 3+ mg/dL (Normal) H 05/15/18 19:12 Urine Ketones Negative mg/dL (NEGATIVE) 05/15/18 19:12 Urine Blood Negative (NEGATIVE) 05/15/18 19:12 Urine Nitrate Negative (NEGATIVE) 05/15/18 19:12 Urine Bilirubin Negative (NEGATIVE) 05/15/18 19:12 Urine Urobilinogen 4.0 mg/dL (0.2-1.0) 05/15/18 19:12 Ur Leukocyte Esterase Neg Bernice/uL (Negative) 05/15/18 19:12 Urine WBC (Auto) < 1 /hpf (0-5) 05/15/18 19:12 Urine RBC (Auto) 1 /hpf (0-3) 05/15/18 19:12 Ur Squamous Epith Cells < 1 /hpf (0-5) 05/15/18 19:12 Vancomycin Trough < 5.0 ug/mL (5.0-10.0) L 05/18/18 20:38 Urine Opiates Screen Negative (NEGATIVE) 05/15/18 19:12 Urine Methadone Screen Negative (NEGATIVE) 05/15/18 19:12 Ur Barbiturates Screen Negative (NEGATIVE) 05/15/18 19:12 Ur Phencyclidine Scrn Negative (NEGATIVE) 05/15/18 19:12 Ur Amphetamines Screen Negative (NEGATIVE) 05/15/18 19:12 U Benzodiazepines Scrn Negative (NEGATIVE) 05/15/18 19:12 U Oth Cocaine Metabols Negative (NEGATIVE) 05/15/18 19:12 U Cannabinoids Screen Negative (NEGATIVE) 05/15/18 19:12 Alcohol, Quantitative < 10 mg/dl (0-10) 05/15/18 19:13 SUSAN 6 Profile Negative (NEGATIVE) 05/15/18 18:44 RPR Nonreactive (NONREACTIVE) 05/18/18 13:54 Hepatitis A IgM Ab Negative (NEGATIVE) 05/16/18 06:46 Hep Bs Antigen Negative (NEGATIVE) 05/16/18 06:46 Hep Bs Antibody Negative (NEGATIVE) 05/18/18 13:54 Hep B Core IgM Ab Negative (NEGATIVE) 05/16/18 06:46 Hepatitis C Antibody Negative (NEGATIVE) 05/16/18 06:46 - Hospital Course Hospital Course: Jeni Thompson is a 57 yo male with a history of CAD s/p 11 stents, T2DM, CHF , HTN, HLD, and hypothyroid who presents with AMS. The patient also has redness and swelling of his lower right leg. Patient's family states that the patient has been very lethargic, sleeping 21 hours per day. At this point, he is barely able to feed himself. He is also having significant memory loss and calling objects by the wrong name. He has been talking very slowing and not making sense. He frequently wanders both in and outside the house. The patient hits his legs on things while walking, which is what the family suspects happened to his RLE. 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 Of note, the patient's son was recently in a bad MVA approximately 1.5 months ago and the patient's sister of a stoke about 3 weeks ago. stats patient has been compliant with his meds because she gives them to him and watches him swallow. CT head was negative for acute pathology. MRI brain showed no acute pathology, no mass effect, which corroborated the MRI done 05/06/18. Dopplers were negative for LE DVT. Heptitis panel negative. Ammonium downtrending on lactulose, although will not be continuing lactulose outpatient. EEG was negative for acute pathology. For the RLE cellulitis, course and Ancef and Vanco were completed. 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 Chronic conditions well managed on home medications. Primary Diagnosis: Metabolic Encephalopathy Patient stable for discharge per Dr. Bergeron. Please follow up with your PMD, Dr. Abernathy, to follow-up with your condition and your diabetes medication review. Please continue to take your home medications as prescribed. If symptoms worsen or return, please return to the ED. Live long and prosper. This is a summary of the hospital course. Please refer to the EMR for more detail. - Date & Time of H&P Date of H&P: 05/19/18 Time of H&P: 11:00 Discharge Exam - Head Exam Head Exam: ATRAUMATIC, NORMOCEPHALIC - Eye Exam Eye Exam: EOMI, Normal appearance - ENT Exam ENT Exam: Mucous Membranes Moist, Normal Exam - Respiratory Exam Respiratory Exam: Clear to PA & Lateral, NORMAL BREATHING PATTERN. absent: Rales, Rhonchi, Wheezes, Respiratory Distress, Stridor - Cardiovascular Exam Cardiovascular Exam: REGULAR RHYTHM, +S1, +S2. absent: Systolic Murmur - GI/Abdominal Exam GI & Abdominal Exam: Normal Bowel Sounds, Soft. absent: Firm, Guarding, Rigid, Tenderness - Extremities Exam Extremities exam: full ROM, normal capillary refill, pedal pulses present Additional comments: bilateral LE edema distal to knee. peripheral pulses palpable 2+ (radial, PT) - Neurological Exam Neurological exam: Alert, Oriented x3 Additional comments: lethargic. able to follow commands - motor and sensation intact - Psychiatric Exam Psychiatric exam: Normal Affect, Normal Mood - Skin Skin Exam: Dry, Intact, Normal Color, Warm Discharge Plan - Follow Up Plan Condition: FAIR Disposition: HOME/ ROUTINE Instructions: Heart Healthy Diet, Heart Failure, Adult (DC), Transient Ischemic Attack (DC), Altered Mental Status (DC), Cellulitis (Skin Infection), Adult (DC) Additional Instructions: Patient stable for discharge per Dr. Bergeron. Please follow up with your PMD, Dr. Abernathy, to follow-up with your condition and your diabetes medication review. Please continue to take your home medications as prescribed. If symptoms worsen or return, please return to the ED. Live long and prosper. Referrals: Viola Abernathy MD [Medical Doctor] - Daniel Chu MD [Staff Provider] - Clinical Quality Measures - CQM - Heart Failure Ejection Fraction: 40 % or Greater Left Ventricular Function to be assessed after discharge: Yes GEORGINA Inhibitor Prescribed: No Contraindication/Reason for not providing: FROILAN Beta-Hill Prescribed: None Contraindication/Reason for not providing: BP and HR Angiotensin II Receptor Hill Prescribed: No Contraindication/Reason for not providing: FROILAN AnticoagulationTherapy for Atrial Fibrillation/Atrialflutter: Yes Contraindication/Reason for not providing: ASA Aldosterone Antagonist Prescribed: No Contraindication/Reason for not providing: FROILAN Hydralazine Nitrate Prescribed: No Contraindication/Reason for not providing: FROILAN Implantable Cardioverter Defibrillator Therapy: No Contraindication/Reason for not providing: FROILAN
== END 2018-05-19 18:18 | disposition home or self-care (01) | DRG 71 ==
LOC: C.ER 16:32 → C.9E 18:29 → C.6T 22:01
PROVIDERS: ADMIT Internal Medicine; ATTEND Internal Medicine
DX: G93.41 Metabolic encephalopathy (principal); Z68.41 Body mass index [BMI] 40.0-44.9, adult; L03.115 Cellulitis of right lower limb; E72.20 Disorder of urea cycle metabolism, unspecified; E03.9 Hypothyroidism, unspecified; E66.01 Morbid (severe) obesity due to excess calories; E78.00 Pure hypercholesterolemia, unspecified; I11.0 Hypertensive heart disease with heart failure; I25.10 Atherosclerotic heart disease of native coronary artery without angina pectoris; I50.9 Heart failure, unspecified; J45.909 Unspecified asthma, uncomplicated; R56.9 Unspecified convulsions; R41.0 Disorientation, unspecified; E11.65 Type 2 diabetes mellitus with hyperglycemia; A46 Erysipelas; D69.59 Other secondary thrombocytopenia

== ENCOUNTER 2018-06-03 15:55 | Inpatient (IN) | payer MEDICARE, MEDICAID ==
[2018-06-03 15:55] VITALS: BMI 43.1
[2018-06-03] MEDS ORDERED: Sodium Chloride 0.9% 1,000 ML IV ONE (16:24)
--- NOTE | 2018-06-03 16:44 | C.PDOC ---
History Of Present Illness 57 year old male sent in by Dr. Elizondo for admission for a GI bleed. As per relatives, patient was here 2 weeks ago and found to have elevated ammonia and LFTs but no GI bleed at that time. Patient denies other complaints at this time. Time Seen by Provider: 06/03/18 16:22 Chief Complaint (Nursing): GI Problem History Per: Patient, Family History/Exam Limitations: no limitations Onset/Duration Of Symptoms: Days Current Symptoms Are (Timing): Still Present Recent travel outside of the [place]: No Past Medical History Reviewed: Historical Data, Nursing Documentation, Vital Signs Vital Signs: Last Vital Signs Temp 99.1 F 06/03/18 16:10 Pulse 93 H 06/03/18 16:10 Resp 18 06/03/18 16:10 BP 106/68 06/03/18 16:10 Pulse Ox 97 06/03/18 17:49 - Medical History PMH: Asthma, CHF, Diabetes, Fractures (rt.leg, rt shoulder fractures), HTN, Hypercholesterolemia, Hypothyroidism, Peripheral Edema Denies: Chronic Kidney Disease Surgical History: Appendectomy, Coronary Stent - [facility] Procedures APPLICATION OF SPLINT (10/30/13) CORONAR ARTERIOGR-2 CATH (11/15/14) INSERTION OF ONE VASCULAR STENT (11/15/14) INSERTION OF THREE VASCULAR STENTS (08/25/14) INSRT OF DRUG-ELUTING CORON ARTERY STENTS(S) (11/15/14) LEFT HEART CARDIAC CATH (11/15/14) LT HEART ANGIOCARDIOGRAM (11/15/14) PERCUTANEOUS TRANSLUMINAL CORONARY ANGIOPLASTY [PTCA] (11/15/14) PROCEDURE ON SINGLE VESSEL (11/15/14) PROCEDURE ON TWO VESSELS (08/25/14) RT HEART CARDIAC CATH (11/02/04) Family History: States: CAD - Social History Hx Tobacco Use: No Hx Alcohol Use: No Hx Substance Use: No - Immunization History Hx Tetanus Toxoid Vaccination: No Hx Influenza Vaccination: No Hx Pneumococcal Vaccination: No Review Of Systems Constitutional: Negative for: Fever, Chills Cardiovascular: Negative for: Chest Pain, Palpitations Respiratory: Negative for: Cough, Shortness of Breath Gastrointestinal: Positive for: Other (GI bleed). Negative for: Nausea, Vomiting Physical Exam - Physical Exam Appears: Non-toxic Skin: Warm, Dry Head: Atraumatic, Normacephalic Eye(s): bilateral: Normal Inspection Oral Mucosa: Moist Neck: Normal, Supple Chest: Symmetrical, No Tenderness Cardiovascular: Rhythm Regular Respiratory: Normal Breath Sounds, No Rales, No Rhonchi, No Wheezing Gastrointestinal/Abdominal: Soft, No Tenderness, Other (Obese) Extremity: Other (Lower extremity edema with venous stasis dermatitis) Pulses: Left Dorsalis Pedis: Normal, Right Dorsalis Pedis: Normal Neurological/Psych: Oriented x3, Normal Speech, Normal Motor, Normal Sensation Gait: Steady ED Course And Treatment - Laboratory Results Result Diagrams: 06/03/18 16:48 06/03/18 16:48 Lab Interpretation: Abnormal ECG: Interpreted By Me ECG Rhythm: Sinus Rhythm Rate From EC O2 Sat by Pulse Oximetry: 97 (Room air) Pulse Ox Interpretation: Normal Progress Note: Blood work, EKG, CXR, and urinalysis ordered. IV fluids administered. Treated with Insulin 5 units SQ for Blood Glucose > 400 Reassessment Condition: Improved - Physician Consult Information Physician Contacted: Darcy Abernathy Outcome Of Conversation: admit Disposition - Disposition Disposition Time: 18:30 Condition: STABLE - Clinical Impression Clinical Impression: Gastrointestinal hemorrhage - PA / HL7 DEVELOPER / Resident Statement MD/DO has reviewed & agrees with the documentation as recorded. - Scribe Statement The provider has reviewed the documentation as recorded by the Scribe All Aparicio All medical record entries made by the Scribe were at my direction and personally dictated by me. I have reviewed the chart and agree that the record accurately reflects my personal performance of the history, physical exam, medical decision making, and the department course for this patient. I have also personally directed, reviewed, and agree with the discharge instructions and disposition. Decision To Admit - Pt Status Changed To: Hospital Disposition Of: Inpatient - Admit Certification Admit to Inpatient:: After my assessment, the patient will require hospitalization for at least two midnights. This is because of the severity of symptoms shown, intensity of services needed, and/or the medical risk in this patient being treated as an outpatient. - InPatient: Physician Admission Certification: I certify that this patient requires 2 or more midnights of care for the following reason:: GI Bleeding - . Bed Request Type: Regular Admitting Physician: Darcy Abernathy Patient Diagnosis: Gastrointestinal hemorrhage
[2018-06-03 16:56] LABS: BASO % 0.8 % (0.0-2.0); EOS # 0.1 K/uL (0.0-0.7); EOS % 2.7 % (0.0-4.0); HEMOGLOBIN 12.8 g/dL (12.0-18.0); LYMPH # 1.3 K/uL (1.0-4.3); LYMPH % 23.4 % (20.0-40.0); MEAN CELL VOLUME 94.5 fL (80.0-94.0); MEAN CORPUSCULAR HEMOGLOBIN 32.9 pg (27.0-31.0); MEAN CORPUSCULAR HGB CONC 34.8 g/dL (33.0-37.0); MEAN PLATELET VOLUME 9.5 fL (7.2-11.7); MONO # 0.9 K/uL (0.0-0.8); MONO % 16.7 % (0.0-10.0); NEUT # 3.1 K/uL (1.8-7.0); NEUT % 56.4 % (50.0-75.0); RBC 3.89 Mil/uL (4.40-5.90); RED CELL DISTRIBUTION WIDTH 14.6 % (11.5-14.5); WHITE BLOOD COUNT 5.5 K/uL (4.8-10.8)
--- NOTE | 2018-06-03 16:58 | RAD ---
HISTORY: SOB COMPARISON: Chest x-ray performed 05/15/18 TECHNIQUE: Chest PA and lateral FINDINGS: Examination limited by habitus. LUNGS: No focal consolidation. Please note that chest x-ray has limited sensitivity for the detection of pulmonary masses. PLEURA: No significant pleural effusion identified. No definite pneumothorax . CARDIOVASCULAR: Heart size appears within normal limits. OSSEOUS STRUCTURES: Degenerative changes. VISUALIZED UPPER ABDOMEN: Unremarkable. OTHER FINDINGS: None. IMPRESSION: No focal consolidation, significant pleural effusion, or definite pneumothorax identified.
[2018-06-03] MEDS ORDERED: Sodium Chloride 0.9% 1,000 ML ONE (17:02)
[2018-06-03 17:06] LABS: INR 1.3; PROTHROMBIN TIME 14.4 SECONDS (9.7-12.2)
[2018-06-03 17:09] LABS: CALCIUM 8.4 mg/dl (8.6-10.4)
[2018-06-03 17:29] LABS: ALB/GLOB RATIO 0.8 (1.0-2.1); ALBUMIN 3.2 g/dL (3.5-5.0); ALT/SGPT 41 U/L (21-72); AST/SGOT 47 U/L (17-59); BLOOD UREA NITROGEN 6 mg/dL (9-20); GFR NON-AFRICAN AMERICAN > 60; LIPASE 173 U/L (23-300)
[2018-06-03] MEDS ORDERED: (Novolin R) Insulin Human Regular 100 units/ml vial SC ONE (17:40)
[2018-06-03 17:53] LABS: SQUAMOUS EPITHIAL < 1 /hpf (0-5); URINE BILIRUBIN NEGATIVE (NEGATIVE); URINE BLOOD NEGATIVE (NEGATIVE); URINE CLARITY Clear (Clear); URINE COLOR Yellow (YELLOW); URINE GLUCOSE (UA) 3+ mg/dL (Normal); URINE LEUKOCYTE ESTERASE NEG Leu/uL (Negative); URINE PROTEIN NEGATIVE (NEGATIVE); URINE UROBILINOGEN NORMAL mg/dL (0.2-1.0)
[2018-06-03] MEDS ORDERED: (Novolin R) Insulin Human Regular 100 units/ml vial ONE (18:01)
[2018-06-03] MEDS: Dextrose 5%/0.45% NS 1,000 ML IV SCH (20:10)
[2018-06-03] MEDS ORDERED: Phytonadione 10 mg/ml Inj (Adult) IV STA (21:29)
[2018-06-03] MEDS: (Novolog) Insulin Aspart, Recombinant 100 u/ml 10 ml vial SC SCH (22:29)
[2018-06-04] MEDS: Levothyroxine 75 MCG TAB PO SCH (06:00)
[2018-06-04] MEDS: Dextrose 5%/0.45% NS 1,000 ML IV SCH ×2 (06:00→16:10)
[2018-06-04 07:40] LABS: BASO # 0.1 K/uL (0.0-0.2); BASO % 0.9 % (0.0-2.0); EOS # 0.2 K/uL (0.0-0.7); EOS % 3.7 % (0.0-4.0); HEMOGLOBIN 12.9 g/dL (12.0-18.0); LYMPH # 2.2 K/uL (1.0-4.3); LYMPH % 34.6 % (20.0-40.0); MEAN CORPUSCULAR HEMOGLOBIN 32.4 pg (27.0-31.0); MEAN PLATELET VOLUME 9.6 fL (7.2-11.7); MONO # 0.9 K/uL (0.0-0.8); MONO % 13.7 % (0.0-10.0); NEUT % 47.1 % (50.0-75.0); NRBC % 0.1 % (0.0-2.0); RBC 3.98 Mil/uL (4.40-5.90); RED CELL DISTRIBUTION WIDTH 14.1 % (11.5-14.5); WHITE BLOOD COUNT 6.3 K/uL (4.8-10.8)
[2018-06-04 07:51] LABS: INR 1.3
[2018-06-04 07:55] LABS: MEAN CELL VOLUME 92.5 fL (80.0-94.0)
[2018-06-04] MEDS: (Novolog) Insulin Aspart, Recombinant 100 u/ml 10 ml vial SC SCH ×4 (08:02→21:40)
[2018-06-04 08:12] LABS: ALB/GLOB RATIO 0.8 (1.0-2.1); ALBUMIN 3.4 g/dL (3.5-5.0); ALT/SGPT 45 U/L (21-72); AST/SGOT 60 U/L (17-59); BLOOD UREA NITROGEN 5 mg/dL (9-20); CALCIUM 8.5 mg/dl (8.6-10.4); GFR NON-AFRICAN AMERICAN > 60
[2018-06-04 09:07] LABS: HEPATITIS B SURFACE AG Negative (NEGATIVE)
[2018-06-04 09:13] LABS: HEPATITIS A IGM NEGATIVE (NEGATIVE); HEPATITIS B CORE AB NEGATIVE (NEGATIVE)
[2018-06-04 09:25] LABS: HEPATITIS C ANTIBODY NEGATIVE (NEGATIVE)
[2018-06-04] MEDS: Omega-3-Acid Ethyl Esters 1 GM Cap PO SCH ×2 (09:36→18:22)
[2018-06-04] MEDS: (Lantus) Insulin Glargine, Recombinant SC SCH ×2 (09:43→21:48)
[2018-06-04] MEDS: Cholestyramine 4 gm/Pkt UD PO SCH (09:45)
[2018-06-04] MEDS ORDERED: Pantoprazole 40 mg EC Tab PO SCH (10:00)
[2018-06-04] MEDS ORDERED: Midazolam 2 MG/2 ML VIAL ONE (11:09)
[2018-06-04] MEDS ORDERED: Propofol 10 mg/ml Inj (20 ML) ONE (11:09)
[2018-06-04] MEDS ORDERED: Lactated Ringer's 1,000 ML IV ONE ×2 (11:11)
[2018-06-04] MEDS: Lactated Ringer's 500 ML IV SCH ×2 (12:34→18:26)
[2018-06-04] MEDS ORDERED: Peg-Electrolyte Oral Soln 4L (Golytely) PO ONE (13:00)
--- NOTE | 2018-06-04 14:07 | CP.PCM.PN ---
Subjective - Date & Time of Evaluation Date of Evaluation: 06/04/18 Time of Evaluation: 13:59 - Subjective Subjective: PGY3 progress note for Dr. Abernathy 57 year old male with past medical history of CAD s/p 11 stents, T2DM, CHF, HTN , HLD, hypothyroidism, hepatic encephalopathy is admitted for GI bleed. Pt was sent in by Dr. Elizondo for GI bleed. On admission, Hgb was 12.8. Pt states he had 1 episode of bloody bowel movement 2 days ago. Patient was recently admitted to hospital for AMS likely 2/2 metabolic encaphalopathy from liver failure. On this visit as well, pt is noted ot have elevated ammonia level of 86. Currently, pt denies having any CP, SOB, abd pain, N/V/D/c, F/C. 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 denies alcohol, tobacco, drugs Medical proxy: Dylan Marley [phone] Objective - Vital Signs/Intake and Output Vital Signs (last 24 hours): Temp Pulse Resp BP Pulse Ox 97.4 F L 74 13 111/65 99 06/04/18 12:07 06/04/18 12:07 06/04/18 12:07 06/04/18 12:07 06/04/18 12:07 Intake and Output: 06/04/18 06/04/18 06:59 18:59 Intake Total 1000 Balance 1000 - Medications Medications: Current Medications Aspirin (Ecotrin) 81 mg PO DAILY [facility] Last Admin: 06/04/18 09:43 Dose: Not Given Atenolol (Tenormin) 50 mg PO DAILY [facility] Last Admin: 06/04/18 10:45 Dose: Not Given Bisacodyl (Dulcolax) 10 mg PO ONCE ONE Stop: 06/04/18 17:01 Cholestyramine Resin (Questran) 4 gm PO DAILY [facility] Last Admin: 06/04/18 09:45 Dose: Not Given Clopidogrel Bisulfate (Plavix) 75 mg PO DAILY [facility] Last Admin: 06/04/18 09:44 Dose: Not Given Furosemide (Lasix) 20 mg PO DAILY [facility] Last Admin: 06/04/18 09:46 Dose: 20 mg Glipizide (Glucotrol) 10 mg PO DAILY [facility] Last Admin: 06/04/18 09:43 Dose: Not Given Dextrose/Sodium Chloride (Dextrose 5%/0.45% Ns 1000 Ml) 1,000 mls @ 100 mls/hr IV .Q10H [facility] Last Admin: 06/04/18 06:00 Dose: 100 mls/hr Lactated Ringer's (Lactated Ringer's 500ml) 500 mls @ 75 mls/hr IV .Q6H40M [facility] Last Admin: 06/04/18 12:34 Dose: Not Given Insulin Aspart (Novolog) 0 unit SC [facility] PRN Reason: Protocol Last Admin: 06/04/18 12:34 Dose: Not Given Insulin Glargine (Lantus) 30 unit SC [facility] Last Admin: 06/04/18 09:43 Dose: Not Given Lactulose (Enulose) 30 gm PO TID [facility] Last Admin: 06/04/18 13:01 Dose: 30 gm Levothyroxine Sodium (Synthroid) 75 mcg PO DAILY@0630 [facility] Last Admin: 06/04/18 06:00 Dose: 75 mcg Metformin HCl (Glucophage) 1,000 mg PO BID [facility] Last Admin: 06/04/18 09:43 Dose: Not Given Metoclopramide HCl (Reglan) 5 mg IVP Q6H [facility] Last Admin: 06/04/18 12:36 Dose: 5 mg Neomycin Sulfate (Neomycin Tab) 500 mg PO Q6 [facility] Last Admin: 06/04/18 12:48 Dose: 500 mg [id number]-6-Jirp Ethyl Esters (Lovaza) 2 gm PO BID [facility] Last Admin: 06/04/18 09:36 Dose: 2 gm Pantoprazole Sodium (Protonix Inj) 40 mg IVP DAILY [facility] Last Admin: 06/04/18 09:45 Dose: Not Given Pantoprazole Sodium (Protonix Ec Tab) 40 mg PO DAILY [facility] Last Admin: 06/04/18 09:44 Dose: 40 mg Pneumococcal Polyvalent Vaccine (Pneumovax 23 Vaccine) 0.5 ml IM .ONCE ONE Stop: 06/05/18 10:01 - Labs Labs: 06/04/18 07:29 06/04/18 07:29 PT 14.0 SECONDS (9.7-12.2) H 06/04/18 07:29 INR 1.3 06/04/18 07:29 APTT 31 SECONDS (21-34) 06/04/18 07:29 - Constitutional Appears: Non-toxic, No Acute Distress - Head Exam Head Exam: ATRAUMATIC, NORMOCEPHALIC - ENT Exam ENT Exam: Mucous Membranes Moist - Respiratory Exam Respiratory Exam: Clear to Ausculation Bilateral, NORMAL BREATHING PATTERN. absent: Accessory Muscle Use, Rales, Rhonchi, Wheezes, Respiratory Distress - Cardiovascular Exam Cardiovascular Exam: REGULAR RHYTHM, +S1, +S2. absent: Gallop, Rubs, Murmur - GI/Abdominal Exam GI & Abdominal Exam: Soft, Normal Bowel Sounds. absent: Distended, Firm, Guarding, Rigid, Tenderness, Organomegaly - Neurological Exam Neurological Exam: Alert, Awake, Oriented x3 - Psychiatric Exam Psychiatric exam: Normal Affect, Normal Mood - Skin Skin Exam: Dry, Intact, Normal Color, Warm Assessment and Plan - Assessment and Plan (Free Text) Assessment: 57 year old male with past medical history of CAD s/p 11 stents, T2DM, CHF, HTN , HLD, hypothyroidism, hepatic encephalopathy is admitted for possible GI bleed. GI bleed - Dr. Elizondo is consulted. Awaiting recs - Pt undergoing EGD this am - H&H stable - Continue D5/.45 NS - Protonix 40 po qd and sucralafate 1 gm po qid - Will hold aspirin and oral anticoag until further recs from GI Hepatic encephalopathy - Ammonia on admission was 86. Repeat value was 56 - Continue lactulose with goal of BM 2-3 x/d - Neomycin 500 mg po Q6 - Hepatitis panel is negative - Will check pt for autoimmune hepatitis: antimitochondrial AB, anti smooth muscle AB and SUSAN and iron studies - Will consider starting pt on spironolactone/lasixs prior to discharge - low sodium diet HTN - Currently hypotensive. Will hold home antihypertensive medications for now DM - Accuchecks ACHS - ISS - Lantus 20 units AMHS - Glipizide 10 mg po qd - HgbA1c is 9.4 - TG/chol/LDL/HDL: 156/187/106/47 HLD - Continue home medication: Lovaza and Questran Prophylaxis - Protonix - Will hold oral AC until further recs from GI. SCDs All orders and management per Dr. Abernathy
[2018-06-04] MEDS ORDERED: Dextrose 50% SYRINGE Inj (50 ml) IV PRN (15:00)
[2018-06-04] MEDS ORDERED: Glucagon Recombinant 1 mg Inj IM ONE (15:00)
[2018-06-04 15:06] LABS: % IRON SATURATION 40 (20-55)
[2018-06-04 15:08] LABS: IRON 129 ug/dL (49-181); TOTAL IRON BINDING CAPACITY 320 ug/dL (250-450)
[2018-06-04] MEDS ORDERED: Bisacodyl 5mg EC Tab PO ONE ×2 (17:00→18:45)
[2018-06-04] MEDS: Sucralfate 1 gm/10 ml Oral Susp UD PO SCH ×2 (18:22→21:17)
[2018-06-05] MEDS: Lactated Ringer's 500 ML IV SCH ×3 (00:52→21:10)
[2018-06-05] MEDS: Dextrose 5%/0.45% NS 1,000 ML IV SCH ×3 (01:45→22:12)
[2018-06-05] MEDS: Levothyroxine 75 MCG TAB PO SCH (05:30)
[2018-06-05 07:21] LABS: HEMOGLOBIN 12.8 g/dL (12.0-18.0); MEAN CELL VOLUME 92.4 fL (80.0-94.0); MEAN CORPUSCULAR HEMOGLOBIN 32.3 pg (27.0-31.0); MEAN PLATELET VOLUME 9.9 fL (7.2-11.7); RBC 3.95 Mil/uL (4.40-5.90); RED CELL DISTRIBUTION WIDTH 14.7 % (11.5-14.5); WHITE BLOOD COUNT 5.5 K/uL (4.8-10.8)
--- NOTE | 2018-06-05 07:40 | CP.PCM.PN ---
Subjective - Date & Time of Evaluation Date of Evaluation: 06/05/18 Time of Evaluation: 08:00 - Subjective Subjective: PGY-[address] Abernathy Patient was seen and examined at bedside in the AM. Patient denies chest pain, shortness of breath, nausea, vomiting, fever or chills. Objective - Vital Signs/Intake and Output Vital Signs (last 24 hours): Temp Pulse Resp BP Pulse Ox 98 F 78 20 147/86 99 06/05/18 00:00 06/05/18 00:00 06/05/18 00:00 06/05/18 00:00 06/05/18 00:00 Intake and Output: 06/05/18 06/05/18 06:59 18:59 Intake Total 1100 Balance 1100 - Medications Medications: Current Medications Aspirin (Ecotrin) 81 mg PO DAILY [facility] Last Admin: 06/04/18 09:43 Dose: Not Given Atenolol (Tenormin) 50 mg PO DAILY [facility] Last Admin: 06/04/18 10:45 Dose: Not Given Cholestyramine Resin (Questran) 4 gm PO DAILY [facility] Last Admin: 06/04/18 09:45 Dose: Not Given Clopidogrel Bisulfate (Plavix) 75 mg PO DAILY [facility] Last Admin: 06/04/18 09:44 Dose: Not Given Dextrose (Dextrose 50% Inj) 0 ml IV STAT PRN; Protocol PRN Reason: Hypoglycemia Protocol Dextrose (Glutose 15) 0 gm PO ONCE PRN; Protocol PRN Reason: Hypoglycemia Protocol Furosemide (Lasix) 20 mg PO DAILY [facility] Last Admin: 06/04/18 09:46 Dose: 20 mg Glipizide (Glucotrol) 10 mg PO DAILY [facility] Last Admin: 06/04/18 09:43 Dose: Not Given Dextrose/Sodium Chloride (Dextrose 5%/0.45% Ns 1000 Ml) 1,000 mls @ 100 mls/hr IV .Q10H [facility] Last Admin: 06/05/18 01:45 Dose: Not Given Lactated Ringer's (Lactated Ringer's 500ml) 500 mls @ 75 mls/hr IV .Q6H40M [facility] Last Admin: 06/05/18 00:52 Dose: Not Given Dextrose (Dextrose 5% In Water 1000 Ml) 1,000 mls @ 0 mls/hr IV .Q0M PRN; Protocol; Per Protocol PRN Reason: Hypoglycemia Protocol Insulin Aspart (Novolog) 0 unit SC [facility] PRN Reason: Protocol Last Admin: 06/04/18 21:40 Dose: Not Given Insulin Glargine (Lantus) 30 unit SC [facility] Last Admin: 06/04/18 21:48 Dose: 30 unit Lactulose (Enulose) 30 gm PO TID [facility] Last Admin: 06/04/18 18:22 Dose: 30 gm Levothyroxine Sodium (Synthroid) 75 mcg PO DAILY@0630 [facility] Last Admin: 06/05/18 05:30 Dose: 75 mcg Metformin HCl (Glucophage) 1,000 mg PO BID [facility] Last Admin: 06/04/18 18:22 Dose: 1,000 mg Metoclopramide HCl (Reglan) 5 mg IVP Q6H [facility] Last Admin: 06/05/18 05:22 Dose: 5 mg Neomycin Sulfate (Neomycin Tab) 500 mg PO Q6 [facility] Last Admin: 06/05/18 05:30 Dose: 500 mg Tvvap-7-Frrh Ethyl Esters (Lovaza) 2 gm PO BID [facility] Last Admin: 06/04/18 18:22 Dose: 2 gm Pantoprazole Sodium (Protonix Inj) 40 mg IVP DAILY [facility] Last Admin: 06/04/18 09:45 Dose: Not Given Pneumococcal Polyvalent Vaccine (Pneumovax 23 Vaccine) 0.5 ml IM .ONCE ONE Stop: 06/05/18 10:01 Sucralfate (Carafate Oral Susp) 1 gm PO QID [facility] Last Admin: 06/04/18 21:17 Dose: 1 gm - Labs Labs: 06/05/18 07:09 06/04/18 07:29 PT 14.0 SECONDS (9.7-12.2) H 06/04/18 07:29 INR 1.3 06/04/18 07:29 APTT 31 SECONDS (21-34) 06/04/18 07:29 - Constitutional Appears: No Acute Distress - Head Exam Head Exam: ATRAUMATIC, NORMAL INSPECTION - Eye Exam Eye Exam: EOMI, Normal appearance - ENT Exam ENT Exam: Mucous Membranes Moist - GI/Abdominal Exam GI & Abdominal Exam: Soft, Normal Bowel Sounds. absent: Tenderness Additional comments: obese abdomen - Extremities Exam Extremities Exam: Normal Inspection - Neurological Exam Neurological Exam: Alert, Awake, Oriented x3 - Psychiatric Exam Psychiatric exam: Normal Affect - Skin Skin Exam: Normal Color Assessment and Plan - Assessment and Plan (Free Text) Assessment: 57 year old male with past medical history of CAD s/p 11 stents, T2DM, CHF, HTN , HLD, hypothyroidism, hepatic encephalopathy is admitted for possible GI bleed. GI bleed - Dr. Elizondo is consulted. Awaiting recs - s/p EGD 06/04/18: non-bleeding ulcers, medium hernia - colonoscopy AM 06/05/18 - H&H stable - Continue D5/.45 NS - Protonix 40 po qd and sucralafate 1 gm po qid - Will hold aspirin and oral anticoag until further recs from GI Hepatic encephalopathy - Ammonia on admission was 86. Repeat value was 56 - Continue lactulose with goal of BM 2-3 x/d - Neomycin 500 mg po Q6 - Hepatitis panel is negative - Will check pt for autoimmune hepatitis: antimitochondrial AB, anti smooth muscle AB and SUSAN and iron studies - Will consider starting pt on spironolactone/lasixs prior to discharge - low sodium diet History of HTN - Currently hypotensive. Will hold home antihypertensive medications for now History of DM - Accuchecks ACHS - ISS - Lantus 20 units [facility] - Glipizide 10 mg po qd - HgbA1c is 9.4 - TG/chol/LDL/HDL: 156/187/106/47 History of HLD - Continue home medication: Lovaza and Questran Prophylaxis - Protonix - Will hold oral AC until further recs from GI. SCDs All orders and management per Dr. Abernathy
[2018-06-05 08:01] LABS: ALB/GLOB RATIO 0.8 (1.0-2.1); ALBUMIN 3.2 g/dL (3.5-5.0); ALT/SGPT 43 U/L (21-72); AST/SGOT 68 U/L (17-59); BLOOD UREA NITROGEN 6 mg/dL (9-20); CALCIUM 8.3 mg/dl (8.6-10.4); GFR NON-AFRICAN AMERICAN > 60
[2018-06-05] MEDS: Sucralfate 1 gm/10 ml Oral Susp UD PO SCH ×4 (09:33→22:12)
[2018-06-05] MEDS: (Lantus) Insulin Glargine, Recombinant SC SCH ×2 (09:34→22:33)
[2018-06-05] MEDS: (Novolog) Insulin Aspart, Recombinant 100 u/ml 10 ml vial SC SCH ×4 (09:34→22:33)
[2018-06-05] MEDS: Omega-3-Acid Ethyl Esters 1 GM Cap PO SCH ×2 (09:34→17:43)
[2018-06-05] MEDS: Cholestyramine 4 gm/Pkt UD PO SCH (09:35)
[2018-06-05] MEDS ORDERED: Pneumococcal 23-Valent Vaccine IM ONE (10:00)
--- NOTE | 2018-06-05 10:56 | HP ---
HISTORY OF PRESENT ILLNESS: A 57-year-old male with history of liver disease, liver cirrhosis with a chief complaint of weakness, fatigue, tiredness. The patient had lower GI bleeding. The patient advised admission. The patient has history of diabetes. PHYSICAL EXAMINATION: GENERAL: The patient is awake, alert, and oriented. VITAL SIGNS: Temperature 98 and pulse 90. HEENT: Within normal limits. NECK: Supple. CHEST: Symmetrical. HEART: Regular. ABDOMEN: Soft. EXTREMITIES: No edema. ASSESSMENT AND PLAN: The patient has gastrointestinal bleeding, liver cirrhosis. The patient advised bed rest, supportive care. Darcy Abernathy MD
[2018-06-05] MEDS ORDERED: Propofol 10 mg/ml Inj (20 ML) ONE (12:15)
[2018-06-05 15:54] LABS: HEPATITIS B SURFACE AG Negative (NEGATIVE)
[2018-06-05 15:59] LABS: HEPATITIS A IGM NEGATIVE (NEGATIVE); HEPATITIS B CORE AB NEGATIVE (NEGATIVE)
[2018-06-05 16:10] LABS: HEPATITIS C ANTIBODY NEGATIVE (NEGATIVE)
[2018-06-05 17:06] VITALS: RESP 20
[2018-06-06 01:43] VITALS: O2SAT 97
[2018-06-06] MEDS: Levothyroxine 75 MCG TAB PO SCH (05:35)
[2018-06-06] MEDS: Dextrose 5%/0.45% NS 1,000 ML IV SCH (07:49)
[2018-06-06] MEDS: (Novolog) Insulin Aspart, Recombinant 100 u/ml 10 ml vial SC SCH ×2 (07:57→12:26)
[2018-06-06 08:01] VITALS: BP 132/75; PULSE 89; TEMP 98.7
--- NOTE | 2018-06-06 09:59 | PN ---
DATE: 06/06/2018 LOCATION: 357, bed A. SUBJECTIVE: This is a 57-year-old male seen and examined early in rounds, appeared to be somewhat alert, oriented, exhausted with the latest reported blood glucose level of 331. Today's lab results are still pending. It has to be mentioned that the patient's alpha-fetoprotein was 4 and CA19-9 antigen less than 1.4, with all his hepatitis profile reported to be negative. The patient denied any chest pain, palpitation, shortness of breath, chills or fever. However, he had trace of rectal bleeding late last night, believed to be secondary to his hemorrhoids. The patient is status post upper and lower endoscopy, and the gastric mucosa pathology official report was positive for Helicobacter pylori infection. The patient is to be treated as outpatient for it. PHYSICAL EXAMINATION: GENERAL: A 57-year-old male. Awake, alert, and oriented. VITAL SIGNS: Afebrile, with pulse of 76, respiratory rate 20-22, blood pressure 130/66. HEENT: Showed pale, dry oral mucous membranes. Nonicteric sclerae. LUNGS: Few scattered crepitations. Decreased air entry at bases. HEART: Positive S1 and S2. ABDOMEN: Soft. Bowel sounds are present. No mass or organomegaly. No rebound tenderness. RECTAL EXAMINATION: Positive tone, guaiac-positive stool, positive for internal and external hemorrhoids. EXTREMITIES: Without significant clubbing, cyanosis, or edema. No reported new neurological deficits, sensory or motor. IMPRESSION: 1. Gastrointestinal bleeding, believed to be secondary to his hemorrhoids, with status post upper and lower endoscopy indicative of nonbleeding gastric ulcers with gastritis and duodenitis, as well as internal hemorrhoids with mild left-sided colitis. 2. Reported history of liver dysfunction with possible cryptogenic liver cirrhosis. 3. Very poorly controlled diabetes mellitus, which may be a major reason for the patient's mild dizziness and disorientation of times. 4. Known history of hypertension, hyperlipidemia, hypothyroidism, with peripheral edema syndrome. 5. Reported history of bronchial asthma with congestive heart failure. SUGGESTIONS: 1. Agree with your plan. 2. Awaiting for MRCP pending on the outcome of the results, further recommendation to follow. Roxy Keller MD [facility] # [id number]
[2018-06-06] MEDS: Lactated Ringer's 500 ML IV SCH ×2 (10:00→12:29)
[2018-06-06] MEDS: Sucralfate 1 gm/10 ml Oral Susp UD PO SCH (10:00)
[2018-06-06] MEDS: Cholestyramine 4 gm/Pkt UD PO SCH (10:01)
[2018-06-06] MEDS: Omega-3-Acid Ethyl Esters 1 GM Cap PO SCH (10:01)
[2018-06-06] MEDS: (Lantus) Insulin Glargine, Recombinant SC SCH (10:01)
[2018-06-06] MEDS ORDERED: Alum-Mag Hydrox-Simethicone Susp (30 mL) PO ONE (12:30)
--- NOTE | 2018-06-06 13:09 | CP.PCM.PN ---
Subjective - Date & Time of Evaluation Date of Evaluation: 06/06/18 Time of Evaluation: 12:45 - Subjective Subjective: [employer] ST[employer]ARD/STEWARDESS NOTES Patient seen today denies any complaints, tolerating diet s/p EGD and colonoscopy Mrcp UNABLE TO COMPLETE H.Pylori+ D/W Dr. Michela driscoll for disacharge home today and continue triple therapy for H pylori Discharge plan dscussed with pateint who understanda and agrees with plan Objective - Vital Signs/Intake and Output Vital Signs (last 24 hours): Temp Pulse Resp BP Pulse Ox 98.7 F 89 20 132/75 97 06/06/18 08:00 06/06/18 08:00 06/06/18 08:00 06/06/18 08:00 06/06/18 08:00 Intake and Output: 06/06/18 06/06/18 06:59 18:59 Intake Total 2064 Balance 2064 - Medications Medications: Current Medications Aspirin (Ecotrin) 81 mg PO DAILY [facility] Last Admin: 06/06/18 10:00 Dose: Not Given Atenolol (Tenormin) 50 mg PO DAILY [facility] Last Admin: 06/06/18 10:01 Dose: Not Given Cholestyramine Resin (Questran) 4 gm PO DAILY [facility] Last Admin: 06/06/18 10:01 Dose: Not Given Clopidogrel Bisulfate (Plavix) 75 mg PO DAILY [facility] Last Admin: 06/06/18 10:01 Dose: Not Given Dextrose (Dextrose 50% Inj) 0 ml IV STAT PRN; Protocol PRN Reason: Hypoglycemia Protocol Dextrose (Glutose 15) 0 gm PO ONCE PRN; Protocol PRN Reason: Hypoglycemia Protocol Furosemide (Lasix) 20 mg PO DAILY [facility] Last Admin: 06/06/18 10:01 Dose: Not Given Glipizide (Glucotrol) 10 mg PO DAILY [facility] Last Admin: 06/06/18 10:00 Dose: Not Given Dextrose/Sodium Chloride (Dextrose 5%/0.45% Ns 1000 Ml) 1,000 mls @ 100 mls/hr IV .Q10H [facility] Last Admin: 06/06/18 07:49 Dose: Not Given Lactated Ringer's (Lactated Ringer's 500ml) 500 mls @ 75 mls/hr IV .Q6H40M [facility] Last Admin: 06/06/18 10:00 Dose: Not Given Dextrose (Dextrose 5% In Water 1000 Ml) 1,000 mls @ 0 mls/hr IV .Q0M PRN; Protocol; Per Protocol PRN Reason: Hypoglycemia Protocol Lactated Ringer's (Lactated Ringer's 500ml) 500 mls @ 10 mls/hr IV .Q24H [facility] Last Admin: 06/06/18 12:29 Dose: Not Given Insulin Aspart (Novolog) 0 unit SC [facility] PRN Reason: Protocol Last Admin: 06/06/18 12:26 Dose: 3 unit Insulin Glargine (Lantus) 30 unit SC [facility] Last Admin: 06/06/18 10:01 Dose: Not Given Lactulose (Enulose) 30 gm PO TID [facility] Last Admin: 06/06/18 10:00 Dose: Not Given Levothyroxine Sodium (Synthroid) 75 mcg PO DAILY@0630 [facility] Last Admin: 06/06/18 05:35 Dose: 75 mcg Metformin HCl (Glucophage) 1,000 mg PO BID [facility] Last Admin: 06/06/18 10:00 Dose: Not Given Metoclopramide HCl (Reglan) 5 mg IVP Q6H [facility] Last Admin: 06/06/18 12:25 Dose: 5 mg Neomycin Sulfate (Neomycin Tab) 500 mg PO Q6 [facility] Last Admin: 06/06/18 12:25 Dose: 500 mg Tncha-6-Oizy Ethyl Esters (Lovaza) 2 gm PO BID [facility] Last Admin: 06/06/18 10:01 Dose: Not Given Pantoprazole Sodium (Protonix Inj) 40 mg IVP DAILY [facility] Last Admin: 06/06/18 09:17 Dose: 40 mg Sucralfate (Carafate Oral Susp) 1 gm PO QID [facility] Last Admin: 06/06/18 10:00 Dose: Not Given - Labs Labs: 06/05/18 07:09 06/05/18 07:09 PT 14.0 SECONDS (9.7-12.2) H 06/04/18 07:29 INR 1.3 06/04/18 07:29 APTT 31 SECONDS (21-34) 06/04/18 07:29
--- NOTE | 2018-06-07 04:33 | CON ---
DATE: 06/03/[address] Keller to Dr. Darcy Abernathy. REASON FOR CONSULTATION: I was called for GI consultation by the admitting medical team as well as the ER staff for GI consultation. The patient is seen on 06/03/2018 in my office as well as after being admitted to the hospital as requested by the admitting medical staff in the presence of his family members including his . The entire chart is reviewed including but not limited to the most recent lab and radiology study results, current and the previous medication lists, current and the previous medical events. Case discussed with the staff as well as the family at length pre and post-admission. HISTORY OF PRESENT ILLNESS: This is a 57-year-old male. He was seen in my office with a main complaint of some change of mental status, recurrent rectal bleeding of large amount of fresh blood and old blood as per the 's statement also with generalized weakness and malaise, with poor oral intake. Apparently, the patient was seen recently in the [facility] and was told that he might have liver cirrhosis, as well as he was seen in [facility] few years ago with questionable reported liver biopsy. Official report is not available to me despite the patient had been my patient for the last 10-12 years. That is a new information for me. No hematemesis. No reported actual chest pain, palpitations, chills, or fever. PAST MEDICAL HISTORY: Including mainly, but not limited to, 1. Hypertension. 2. Poorly controlled diabetes mellitus. 3. Congestive heart failure. 4. Bronchial asthma. 5. Hyperlipidemia. 6. Hypothyroidism. 7. Peripheral edema syndrome. 8. Coronary artery disease with status post cardiac stent insertion. 9. Status post appendectomy. 10. The patient had been under severe stress due to some family illness. CURRENT MEDICATIONS: Post-admission medication lists were reviewed. SOCIAL HISTORY: No known recent history of alcohol intake or cigarette smoking. FAMILY HISTORY: Unrelated to specific GI disorder. ALLERGIC TO MEDICATION: UNCLEAR. LABORATORY DATA: After being admitted to the hospital, the patient was found to have thrombocytopenia of 101 with hemoglobin 12.8, hematocrit 36.8 with a blood glucose level of 449 with low BUN and low creatinine. Again, ammonia level was elevated at the time of admission to about 85 or more. PHYSICAL EXAMINATION: GENERAL: A 57-year-old male, appeared to be somewhat restless and mildly agitated. VITAL SIGNS: Afebrile with pulse of 94, respiratory rate 20 to 22, blood pressure 110/66. HEENT: Showed pale, dry oral mucous membrane. Nonicteric sclerae. LUNGS: Few scattered crepitation. Decreased air entry at bases. HEART: Positive S1 and S2 with increased rate. ABDOMEN: Mildly obese, slightly distended with slight generalized tenderness. Bowel sounds are hyperactive. No mass or organomegaly. No rebound tenderness or guarding. RECTAL: Guaiac-positive stool with trace of fresh and old blood. EXTREMITIES: With mild lower extremity edematous changes. No clubbing or cyanosis. NEUROLOGIC: No reported new neurological deficits, sensory or motor. However, the patient appears to be somewhat restless and somewhat forgetful at times. IMPRESSION: 1. Elevated ammonia level with possible liver dysfunction. Possibility of cryptogenic liver cirrhosis was raised. The patient had no known history of liver disease to contribute to his elevated ammonia level. No reported history of viral hepatitis, alcohol induced or bilharziasis infection. 2. Poorly controlled diabetes mellitus, to rule out possible diabetic ketoacidosis inducing some mild change of mental status. 3. Gastrointestinal bleeding, upper versus lower, to rule out bleeding or esophageal varices, to rule out occult gastrointestinal malignancy and/or lower gastrointestinal tract source of blood loss. 4. Multiple past medical histories as mentioned above. SUGGESTIONS: 1. Agree with your plan. 2. Proton pump inhibitors. 3. Cancer markers. 4. Neomycin p.o. with lactulose p.o. 5. Repeat ammonia level at a.m. 6. Endoscopic evaluation of the GI tract when the patient is more stable clinically. 7. MRCP. 8. Old record from [place], [place]. 9. Further recommendation to follow and the rest as per order sheet. Thank you for letting me to participate in your patient's case management. Roxy Keller MD
--- NOTE | 2018-06-07 08:27 | CARD ---
APPROVED REPORT Date of service: 06/03/2018 EKG Measurement Heart [id number] <Conclusion> Normal sinus rhythm Minimal voltage criteria for LVH, may be normal variant Nonspecific T wave abnormality Abnormal ECG
--- NOTE | 2018-06-10 06:34 | DS ---
The patient admitted to the hospital with a chief complaint of GI bleeding, weakness, and liver failure. The patient with lactulose therapy , endoscopy, colonoscopy, gastritis. The patient was advised to follow up with the [facility] in the [facility] for further evaluation for the recent hepatic encephalopathy and possible liver cirrhosis. DIAGNOSES: Gastrointestinal bleeding and hepatic encephalopathy. Darcy Abernathy MD
== END 2018-06-06 13:43 | disposition home or self-care (01) | DRG 394 ==
LOC: C.ER 15:55 → C.9E 16:41 → C.3T 18:52 → UNDODISIN 20:13
PROVIDERS: ADMIT Internal Medicine Pulmonary Disease; ATTEND Internal Medicine Pulmonary Disease
PROC: 0DB68ZX Excision of Stomach, Via Natural or Artificial Opening Endoscopic, Diagnostic (ICD-10-PCS; principal; 2018-06-04 11:16)
PROC: 0DBM8ZX Excision of Descending Colon, Via Natural or Artificial Opening Endoscopic, Diagnostic (ICD-10-PCS; 2018-06-05)
DX: K64.8 Other hemorrhoids (principal); K62.5 Hemorrhage of anus and rectum; K51.50 Left sided colitis without complications; K72.90 Hepatic failure, unspecified without coma; K25.9 Gastric ulcer, unspecified as acute or chronic, without hemorrhage or perforation; K29.50 Unspecified chronic gastritis without bleeding; K29.80 Duodenitis without bleeding; K64.4 Residual hemorrhoidal skin tags; B96.81 Helicobacter pylori [H. pylori] as the cause of diseases classified elsewhere; I11.0 Hypertensive heart disease with heart failure; E11.65 Type 2 diabetes mellitus with hyperglycemia; K74.60 Unspecified cirrhosis of liver; D69.6 Thrombocytopenia, unspecified; K44.9 Diaphragmatic hernia without obstruction or gangrene; I25.10 Atherosclerotic heart disease of native coronary artery without angina pectoris; E03.9 Hypothyroidism, unspecified; J45.909 Unspecified asthma, uncomplicated; I50.9 Heart failure, unspecified; E78.5 Hyperlipidemia, unspecified; E78.00 Pure hypercholesterolemia, unspecified; Z79.4 Long term (current) use of insulin; Z87.11 Personal history of peptic ulcer disease; Z90.49 Acquired absence of other specified parts of digestive tract; Z95.5 Presence of coronary angioplasty implant and graft

== ENCOUNTER 2018-11-30 16:16 | Inpatient (IN) | payer MEDICARE, MEDICAID ==
[2018-11-30 16:22] VITALS: BMI 27.1
--- NOTE | 2018-11-30 17:16 | C.PDOC ---
History Of Present Illness Patient brought to ED for evaluation of worsening confusion since yesterday, worse since this morning. Patient has PMHx of liver cirrhosis/fatty liver disease, CAD with 12 stents, DM II, HTN, hyperlipidemia, hypothyroidism, prior hepatic encephalopathy. As per patient's and brother in law, he had an episode of erpistaxis last night, but they deny known GI bleeding. He has also had nonproductive cough and runny nose for several days. They deny chest pain, SOB, palpitations, vomitng, diarrhea, fever/chills, dysuria. Patient was given two extra doses of lactulose last night, and then two more this morning - (+) BMs . PMD: Dr. Ayan Harris GI: Dr. Cuba Endocrinology: Dr. Ayan Medina Time Seen by Provider: 11/30/18 16:42 Chief Complaint (Nursing): Weakness/Neurological Deficit History Per: Family (, brother in law) History/Exam Limitations: no limitations Onset/Duration Of Symptoms: Days Current Symptoms Are (Timing): Still Present Past Medical History Reviewed: Historical Data, Nursing Documentation, Vital Signs Vital Signs: Last Vital Signs Temp 98.6 F 11/30/18 16:22 Pulse 95 H 11/30/18 16:22 Resp 18 11/30/18 16:22 BP 139/79 11/30/18 16:22 Pulse Ox 99 11/30/18 16:22 - Medical History PMH: Asthma, CHF, Diabetes, Fractures (rt.leg, rt shoulder fractures), HTN, Hypercholesterolemia, Hypothyroidism, Peripheral Edema Surgical History: Appendectomy, Coronary Stent (10 stents) - [facility] Procedures APPLICATION OF SPLINT (10/30/13) CORONAR ARTERIOGR-2 CATH (11/15/14) EXCISION OF DESCENDING COLON, ENDO, DIAGN (06/03/18) EXCISION OF STOMACH, ENDO, DIAGN (06/03/18) FLUOROSCOPY OF LEFT HEART USING LOW OSMOLAR CONTRAST (06/20/18) FLUOROSCOPY OF MULT COR ART USING L OSM CONTRAST (06/20/18) INSERTION OF ONE VASCULAR STENT (11/15/14) INSERTION OF THREE VASCULAR STENTS (08/25/14) INSRT OF DRUG-ELUTING CORON ARTERY STENTS(S) (11/15/14) LEFT HEART CARDIAC CATH (11/15/14) LT HEART ANGIOCARDIOGRAM (11/15/14) MEASURE OF CARDIAC SAMPL & PRESSURE, L HEART, PERC APPROACH (06/20/18) PERCUTANEOUS TRANSLUMINAL CORONARY ANGIOPLASTY [PTCA] (11/15/14) PROCEDURE ON SINGLE VESSEL (11/15/14) PROCEDURE ON TWO VESSELS (08/25/14) RT HEART CARDIAC CATH (11/02/04) Family History: States: CAD - Social History Hx Tobacco Use: No Hx Alcohol Use: No Hx Substance Use: No - Immunization History Hx Tetanus Toxoid Vaccination: No Hx Influenza Vaccination: No Hx Pneumococcal Vaccination: No Review Of Systems Review Of Systems: ROS cannot be obtained secondary to pt's inabilty to answer questions. Physical Exam - Physical Exam Appears: Non-toxic, No Acute Distress, Confused, Chronically Ill Skin: Warm, Dry, Jaundice (mild) Head: Normacephalic Eye(s): bilateral: Normal Inspection (no scleral icterus), PERRL, EOMI Oral Mucosa: Moist Cardiovascular: Rhythm Regular Respiratory: Normal Breath Sounds, No Rales, No Rhonchi, No Wheezing Gastrointestinal/Abdominal: Bowel Sounds, Soft, Distention, No Guarding, No Rebound, Ascites Extremity: Pedal Edema (+1 pitting edema B/L LEs), No Calf Tenderness Pulses: Left Dorsalis Pedis: Normal, Right Dorsalis Pedis: Normal Neurological/Psych: Other (awake, drowsy appearing, able to follow commands, oriented x 1) ED Course And Treatment ECG: Interpreted By Me, Viewed By Me (NSR 91 bpm, left axis deviation, Q waves III, aVF, no acute ST/ T wave changes) ECG Interpretation: Abnormal O2 Sat by Pulse Oximetry: 99 (RA) Pulse Ox Interpretation: Normal Progress Note: Blood work, CXR, EKG ordered and reviewed. Disposition - Disposition Forms: [employer] ([place])
[2018-11-30 17:44] LABS: VENOUS BLOOD GAS BASE EXCESS -2.3 mmol/L (0.0-2.0); VENOUS BLOOD GAS PCO2 32 mmHg (40-60); VENOUS BLOOD GAS PO2 28 mm/Hg (30-55); VENOUS BLOOD PH 7.43 (7.32-7.43)
[2018-11-30 18:19] LABS: BASO # 0.1 K/uL (0.0-0.2); BASO % 1.1 % (0.0-2.0); EOS % 0.7 % (0.0-4.0); HEMOGLOBIN 13.1 g/dL (12.0-18.0); LYMPH # 1.1 K/uL (1.0-4.3); MEAN CELL VOLUME 90.3 fL (80.0-94.0); MEAN CORPUSCULAR HEMOGLOBIN 29.5 pg (27.0-31.0); MEAN CORPUSCULAR HGB CONC 32.7 g/dL (33.0-37.0); MEAN PLATELET VOLUME 9.7 fL (7.2-11.7); MONO # 0.9 K/uL (0.0-0.8); MONO % 15.4 % (0.0-10.0); NEUT % 64.8 % (50.0-75.0); NRBC % 0.1 % (0.0-2.0); RBC 4.44 Mil/uL (4.40-5.90); RED CELL DISTRIBUTION WIDTH 16.6 % (11.5-14.5); WHITE BLOOD COUNT 6.2 K/uL (4.8-10.8)
[2018-11-30 18:23] LABS: INR 1.3
[2018-11-30 18:36] LABS: ALB/GLOB RATIO 0.8 (1.0-2.1); ALBUMIN 3.7 g/dL (3.5-5.0); ALT/SGPT 33 U/L (21-72); AST/SGOT 61 U/L (17-59); BLOOD UREA NITROGEN 8 mg/dL (9-20); CALCIUM 9.1 mg/dl (8.6-10.4); GFR NON-AFRICAN AMERICAN > 60
[2018-11-30 18:46] LABS: CK-MB 1.22 ng/mL (0.0-3.38)
--- NOTE | 2018-11-30 18:47 | RAD ---
HISTORY: weakness COMPARISON: Chest x-ray performed 06/03/18 TECHNIQUE: Chest, one view. FINDINGS: Examination limited by habitus and hypoinflation. LUNGS: No focal consolidation. Please note that chest x-ray has limited sensitivity for the detection of pulmonary masses. PLEURA: No significant pleural effusion identified. No definite pneumothorax . CARDIOVASCULAR: Heart size appears top normal. No significant atherosclerotic calcification present. OSSEOUS STRUCTURES: No acute osseous abnormality identified. VISUALIZED UPPER ABDOMEN: Mild elevation of the right hemidiaphragm. OTHER FINDINGS: None. IMPRESSION: Hypoinflation. No focal consolidation.
[2018-11-30 19:10] LABS: URINE AMORPHOUS SEDIMENT FEW /ul (<OCC); URINE BILIRUBIN NEGATIVE (NEGATIVE); URINE BLOOD NEGATIVE (NEGATIVE); URINE CLARITY Clear (Clear); URINE GLUCOSE (UA) 3+ mg/dL (Normal); URINE LEUKOCYTE ESTERASE NEG Leu/uL (Negative); URINE PROTEIN NEGATIVE (NEGATIVE)
[2018-11-30 19:14] LABS: URINE COLOR YELLOW (YELLOW)
[2018-11-30] MEDS ORDERED: Dextrose 5%/0.45% NS 1,000 ML IV SCH (22:45)
[2018-11-30] MEDS ORDERED: Dextrose 5%/0.9% NS 1,000 ML IV ONE (22:48)
[2018-12-01 03:21] LABS: SQUAMOUS EPITHIAL 1 /hpf (0-5); URINE BILIRUBIN NEGATIVE (NEGATIVE); URINE BLOOD NEGATIVE (NEGATIVE); URINE CLARITY Clear (Clear); URINE COLOR Yellow (YELLOW); URINE GLUCOSE (UA) 3+ mg/dL (Normal); URINE LEUKOCYTE ESTERASE NEG Leu/uL (Negative); URINE PROTEIN NEGATIVE (NEGATIVE)
[2018-12-01 04:35] VITALS: RESP 20
[2018-12-01] MEDS ORDERED: (Novolog) Insulin Aspart, Recombinant 100 u/ml 10 ml vial SC SCH (07:30)
--- NOTE | 2018-12-01 07:40 | CP.PCM.PN ---
"Subjective - Date & Time of Evaluation Date of Evaluation: 12/01/18 Time of Evaluation: 09:51 - Subjective Subjective: This patient is a 58 year old male with PMHx liver cirrhosis/fatty liver disease, CAD with 12 stents, DM II, HTN, hyperlipidemia, hypothyroidism, prior hepatic encephalopathy, H. Pylori admitted for evaluation and treatment of worsening confusion since 11/29/18. Patient seen and examined at bedside. No overnight events were reported. Patient denies any fever, chills, chest pain, SOB, abdominal pain, n/v or urinary symptoms. He reports loose non-bloody bowel movements sine admission. ROS POSITIVES: Disoriented to Time, Diarrhea, NEGATIVES: Fever, chills, chest pain, SOB, abdominal pain, n/v or urinary symptoms, Melena, blood in stool PMH: liver cirrhosis/fatty liver disease, CAD with 12 stents, DM II, HTN, hyperlipidemia, hypothyroidism, prior hepatic encephalopathy, H. Pylori PSH: 12 Stents, Appendectomy. 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 See Chart. FamHx: mother- breast cancer, dementia | father- CVA (hemiplegia)| sister () - CVA Meds: Per NOV. PMD: Dr. Abernathy Medical proxy: Dylan Marley [phone] Objective - Vital Signs/Intake and Output Vital Signs (last 24 hours): Temp Pulse Resp BP Pulse Ox 98.1 F 96 H 20 116/68 99 12/01/18 03:45 12/01/18 05:40 12/01/18 05:40 12/01/18 05:40 12/01/18 05:40 - Medications Medications: Current Medications Aspirin (Ecotrin) 81 mg PO DAILY [facility] Atenolol (Tenormin) 50 mg PO DAILY [facility] Clopidogrel Bisulfate (Plavix) 75 mg PO DAILY [facility] Home Med (Colesevelam Hcl [Welchol]) 625 tab PO TID [facility] Home Med (Metformin [Glucophage]) 1,000 tab PO BID [facility] Dextrose/Sodium Chloride (Dextrose 5%/0.45% Ns 1000 Ml) 1,000 mls @ 60 mls/hr IV .[id number] [facility] Last Admin: 11/30/18 22:48 Dose: 60 mls/hr Insulin Aspart (Novolog) 0 unit SC ACHS [facility]; Protocol Isosorbide Mononitrate (Imdur) 60 mg PO 0600 [facility] Last Admin: 12/01/18 05:41 Dose: 60 mg Lactulose (Enulose) 20 gm PO QID [facility] Levothyroxine Sodium (Synthroid) 75 mcg PO DAILY [facility] Ranolazine (Ranexa) 500 mg PO BID [facility] Rifaximin (Xifaxan) 550 mg PO BID [facility]; Protocol Torsemide (Demadex) 40 mg PO DAILY [facility] - Labs Labs: 11/30/18 18:03 11/30/18 18:03 PT 14.0 SECONDS (9.7-12.2) H 11/30/18 18:03 INR 1.3 11/30/18 18:03 APTT 31 SECONDS (21-34) 11/30/18 18:03 - Constitutional Appears: Well, Non-toxic, No Acute Distress - Head Exam Head Exam: ATRAUMATIC, NORMAL INSPECTION, NORMOCEPHALIC - Eye Exam Eye Exam: EOMI, Normal appearance. absent: Conjunctival injection, Scleral icterus - ENT Exam ENT Exam: Mucous Membranes Moist - Respiratory Exam Respiratory Exam: Clear to Ausculation Bilateral, NORMAL BREATHING PATTERN. absent: Accessory Muscle Use - Cardiovascular Exam Cardiovascular Exam: Irregular Rhythm, +S1, +S2. absent: RRR - GI/Abdominal Exam GI & Abdominal Exam: Distended (Likely due to body habitus, No Fluid Wave Shift, No Ascites ), Soft, Organomegaly (Hepatomegaly). absent: Guarding, Tenderness, Rebound - Extremities Exam Extremities Exam: Normal Inspection. absent: Calf Tenderness, Pedal Edema, Tenderness - Neurological Exam Neurological Exam: Abnormal Gait (Unsteady), Alert, Awake. 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 Ammonia 82-->85 Smooth Muscle Antibody Positive 05/2018 Consults: Will Consider GI Consult. Physical Therapy Eval and Treat Meds: Lactulose 20grams PO QID Rifaxamin 550 BID D5 in 1/2 NS @ 50mls/hr CAD w/ 12 Stents. EKG(Adm): NSR 91 bpm, left axis deviation, Q waves III, aVF, no acute ST/ T wave changes Meds: Plavix 75mg PO Daily ASA 81 mg PO Daily Isosrobid Mononitrate 60mg PO Daily Ranexa 500mg BID Diabetes M. Type II Consult: Dr. Grant, Recs Appreciated. Meds: Glipizide XL 10mg PO ACHS Novolog 35 Units ACBD Home Welchol 1tab PO TID (Not in Formulary, Patient should bring form home) ISS CHF -Echo(05/06/18) EF 55%, mild concentric LVH, trace AR, MR trace, RVSP 33mHg Meds: Home Torsemide 40mg PO Daily Home ASA 81 mg PO Daily Home Atenolol 50mg PO Daily HTN (Chronic) Meds: Home Atenolol 50mg PO Daily Home Torsemide 40mg PO Daily Hypothyroid (Chronic) Meds: Home Synthroid 75mcg PO AM Proph - Protonix - SCD Patient seen, examined, and discussed with Attending (Dr. Abernathy) Sandi Lara, PGY-2"
[2018-12-01] MEDS: GlipiZIDE 10 mg SR Tab PO SCH ×2 (09:20→17:46)
[2018-12-01] MEDS: Levothyroxine 75 MCG TAB PO SCH (09:20)
[2018-12-01] MEDS: (Novolog Mix 70/30) Insulin Aspart/Insulin Aspar 100 units/ml SC SCH ×2 (09:21→17:45)
[2018-12-01] MEDS: Ranolazine 500 mg Extended Release Tablets PO SCH ×2 (09:21→17:46)
[2018-12-01] MEDS: Dextrose 5%/0.45% NS 1,000 ML IV SCH (09:30)
[2018-12-01] MEDS ORDERED: COLESEVELAM HCL PO SCH ×2 (10:00→14:00)
[2018-12-01 11:34] LABS: BASO # 0.1 K/uL (0.0-0.2); BASO % 0.9 % (0.0-2.0); EOS % 0.5 % (0.0-4.0); HEMOGLOBIN 12.4 g/dL (12.0-18.0); LYMPH # 1.5 K/uL (1.0-4.3); LYMPH % 20.2 % (20.0-40.0); MEAN CELL VOLUME 90.9 fL (80.0-94.0); MEAN CORPUSCULAR HEMOGLOBIN 29.8 pg (27.0-31.0); MEAN CORPUSCULAR HGB CONC 32.8 g/dL (33.0-37.0); MEAN PLATELET VOLUME 9.6 fL (7.2-11.7); MONO # 1.2 K/uL (0.0-0.8); MONO % 16.6 % (0.0-10.0); NEUT # 4.6 K/uL (1.8-7.0); NEUT % 61.8 % (50.0-75.0); NRBC % 0.1 % (0.0-2.0); RBC 4.17 Mil/uL (4.40-5.90); RED CELL DISTRIBUTION WIDTH 17.1 % (11.5-14.5); WHITE BLOOD COUNT 7.5 K/uL (4.8-10.8)
[2018-12-01 11:48] LABS: ALB/GLOB RATIO 0.9 (1.0-2.1); ALBUMIN 3.5 g/dL (3.5-5.0); ALT/SGPT 31 U/L (21-72); AST/SGOT 57 U/L (17-59); BLOOD UREA NITROGEN 9 mg/dL (9-20); CALCIUM 8.5 mg/dl (8.6-10.4); GFR NON-AFRICAN AMERICAN > 60
[2018-12-01] MEDS: (Novolog) Insulin Aspart, Recombinant 100 u/ml 10 ml vial SC SCH ×3 (12:30→21:41)
--- NOTE | 2018-12-01 12:43 | CARD ---
APPROVED REPORT Date of service: 11/30/2018 EKG Measurement Heart [id number] <Conclusion> Normal sinus rhythm Inferior infarct, age undetermined Prolonged QT Abnormal ECG
[2018-12-02] MEDS: Levothyroxine 75 MCG TAB PO SCH (05:40)
--- NOTE | 2018-12-02 06:05 | HP ---
HISTORY OF PRESENT ILLNESS: Mr. Ngo was admitted to the hospital with a chief complaint of generalized weakness, fatigue, and tiredness. The patient came to the ER, advised admission. The patient has a history of liver cirrhosis, diabetes. The patient cirrhosis infection disease. PHYSICAL EXAMINATION: GENERAL: The patient is awake, alert, oriented. VITAL SIGNS: Temperature 98, pulse 90. HEENT: Within normal limits. NECK: Supple. CHEST: Symmetrical. HEART: Regular. ABDOMEN: Soft. EXTREMITIES: No edema. IMPRESSION: Liver failure. PLAN: The patient is to get bed rest, supportive care. Darcy Abernathy MD
[2018-12-02 07:44] LABS: BASO # 0.1 K/uL (0.0-0.2); EOS # 0.1 K/uL (0.0-0.7); HEMOGLOBIN 11.3 g/dL (12.0-18.0)
[2018-12-02] MEDS: (Novolog) Insulin Aspart, Recombinant 100 u/ml 10 ml vial SC SCH ×2 (07:48→12:33)
[2018-12-02 07:55] LABS: EOS % 0.9 % (0.0-4.0); LYMPH # 1.7 K/uL (1.0-4.3); LYMPH % 29.7 % (20.0-40.0); MEAN CELL VOLUME 89.6 fL (80.0-94.0); MEAN CORPUSCULAR HEMOGLOBIN 29.9 pg (27.0-31.0); MEAN CORPUSCULAR HGB CONC 33.3 g/dL (33.0-37.0); MEAN PLATELET VOLUME 9.6 fL (7.2-11.7); MONO % 17.9 % (0.0-10.0); NEUT # 2.9 K/uL (1.8-7.0); NEUT % 50.5 % (50.0-75.0); NRBC % 0.8 % (0.0-2.0); RBC 3.79 Mil/uL (4.40-5.90); RED CELL DISTRIBUTION WIDTH 16.8 % (11.5-14.5); WHITE BLOOD COUNT 5.7 K/uL (4.8-10.8)
[2018-12-02 08:00] LABS: ALB/GLOB RATIO 0.8 (1.0-2.1); ALT/SGPT 34 U/L (21-72); AST/SGOT 44 U/L (17-59); BLOOD UREA NITROGEN 8 mg/dL (9-20); CALCIUM 8.3 mg/dl (8.6-10.4); GFR NON-AFRICAN AMERICAN > 60
[2018-12-02] MEDS: (Novolog Mix 70/30) Insulin Aspart/Insulin Aspar 100 units/ml SC SCH (08:06)
[2018-12-02] MEDS: GlipiZIDE 10 mg SR Tab PO SCH (08:07)
[2018-12-02 08:24] VITALS: BP 104/63; PULSE 77; TEMP 98; O2SAT 95
[2018-12-02] MEDS ORDERED: Glucagon Recombinant 1 mg Inj IM PRN (08:32)
[2018-12-02] MEDS ORDERED: Dextrose 50% SYRINGE Inj (50 ml) IV PRN (08:32)
[2018-12-02] MEDS: Ranolazine 500 mg Extended Release Tablets PO SCH (09:29)
[2018-12-02] MEDS: Dextrose 5%/0.45% NS 1,000 ML IV SCH (09:30)
[2018-12-02] MEDS ORDERED: Potassium Chloride 20 mEq ER Tab PO ONE (10:00)
--- NOTE | 2018-12-02 13:24 | CP.PCM.PN ---
Subjective - Date & Time of Evaluation Date of Evaluation: 12/02/18 Time of Evaluation: : - Subjective Subjective: Medicine Note for Dr. Abernathy Patient seen and examined at bedside. Patient is AAO x3. He was able to ambulate without any unsteadiness. Patient is medically stable for discharge. Objective - Vital Signs/Intake and Output Vital Signs (last 24 hours): Temp Pulse Resp BP Pulse Ox 98.0 F 77 20 104/63 95 12/02/18 07:00 12/02/18 07:00 12/02/18 07:00 12/02/18 07:00 12/02/18 07:00 Intake and Output: 12/02/18 12/02/18 06:59 18:59 Intake Total 320 Balance 320 - Medications Medications: Current Medications Aspirin (Ecotrin) 81 mg PO DAILY [facility] Last Admin: 12/02/18 09:29 Dose: 81 mg Atenolol (Tenormin) 50 mg PO DAILY [facility] Last Admin: 12/02/18 09:30 Dose: 50 mg Clopidogrel Bisulfate (Plavix) 75 mg PO DAILY [facility] Last Admin: 12/02/18 09:29 Dose: 75 mg Dextrose (Dextrose 50% Inj) 0 ml IV STAT PRN; Protocol PRN Reason: Hypoglycemia Protocol Dextrose (Glutose 15) 0 gm PO ONCE PRN; Protocol PRN Reason: Hypoglycemia Protocol Glipizide (Glucotrol Xl) 10 mg PO ACBD [facility] Last Admin: 12/02/18 08:07 Dose: 10 mg Glucagon (Glucagen Diagnostic Kit) 0 mg IM STAT PRN; Protocol PRN Reason: Hypoglycemia Protocol Home Med (Colesevelam Hcl [Welchol]) 1 tab PO TID [facility] Dextrose/Sodium Chloride (Dextrose 5%/0.45% Ns 1000 Ml) 1,000 mls @ 20 mls/hr IV .Q24H [facility] Last Admin: 12/02/18 09:30 Dose: 20 mls/hr Dextrose (Dextrose 5% In Water 1000 Ml) 1,000 mls @ 0 mls/hr IV .Q0M PRN; Protocol PRN Reason: Hypoglycemia Protocol Insulin Aspart (Novolog Mix 70/30 (70/30 Units/Ml)) 35 units SC ACBD [facility] Last Admin: 12/02/18 08:06 Dose: 35 units Insulin Aspart (Novolog) 0 unit SC [facility]; Protocol Last Admin: 12/02/18 12:33 Dose: 4 units Isosorbide Mononitrate (Imdur) 60 mg PO 0600 [facility] Last Admin: 12/02/18 05:41 Dose: 60 mg Lactulose (Enulose) 20 gm PO QID [facility] Last Admin: 12/02/18 12:59 Dose: 20 gm Levothyroxine Sodium (Synthroid) 75 mcg PO 0630 [facility] Last Admin: 12/02/18 05:40 Dose: 75 mcg Potassium Chloride (K-Dur 20 Meq Er Tab) 20 meq PO DAILY [facility] Ranolazine (Ranexa) 500 mg PO BID [facility] Last Admin: 12/02/18 09:29 Dose: 500 mg Rifaximin (Xifaxan) 550 mg PO BID [facility]; Protocol Last Admin: 12/02/18 09:29 Dose: 550 mg Torsemide (Demadex) 40 mg PO DAILY [facility] Last Admin: 12/02/18 09:30 Dose: 40 mg - Labs Labs: 12/02/18 07:24 12/02/18 07:24 PT 14.0 SECONDS (9.7-12.2) H 11/30/18 18:03 INR 1.3 11/30/18 18:03 APTT 31 SECONDS (21-34) 11/30/18 18:03 - Constitutional Appears: Well, Non-toxic, No Acute Distress - Head Exam Head Exam: NORMAL INSPECTION, NORMOCEPHALIC - Eye Exam Eye Exam: EOMI, Normal appearance, PERRL - ENT Exam ENT Exam: Mucous Membranes Dry - Respiratory Exam Respiratory Exam: Clear to Ausculation Bilateral, NORMAL BREATHING PATTERN. absent: Decreased Breath Sounds, Rales, Rhonchi, Wheezes - Cardiovascular Exam Cardiovascular Exam: REGULAR RHYTHM, RRR, +S1, +S2 - GI/Abdominal Exam GI & Abdominal Exam: Soft, Normal Bowel Sounds. absent: Distended, Tenderness - Extremities Exam Extremities Exam: Normal Inspection. 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 Type II Consult: Dr. Grant, Recs Appreciated. Meds: Glipizide XL 10mg PO ACHS Novolog 35 Units ACBD Home Welchol 1tab PO TID (Not in Formulary, Patient should bring form home) ISS Diastolic HF -Echo(05/06/18) EF 55%, mild concentric LVH, trace AR, MR trace, RVSP 33mHg Meds: Home Torsemide 40mg PO Daily Home ASA 81 mg PO Daily Home Atenolol 50mg PO Daily HTN Meds: Home Atenolol 50mg PO Daily Home Torsemide 40mg PO Daily Hypothyroid Meds: Home Synthroid 75mcg PO AM Proph - Protonix - SCD Disposition: As per Dr. Abernathy, patient is medically stable for discharge. He is to follow up with Dr. Abernathy within 1 week. Patient strongly encouraged to take lactulose as prescribed. DW Dr. Abernathy, Marita Ni DO, PGY-2
[2018-12-03] MEDS ORDERED: Potassium Chloride 20 mEq ER Tab PO SCH (10:00)
== END 2018-12-02 13:32 | disposition home or self-care (01) | DRG 443 ==
LOC: C.ER 16:16 → C.9E 18:47 → C.5S 23:20 → C.9E 23:20 → C.6T 12-01 00:05
PROVIDERS: ADMIT Internal Medicine Pulmonary Disease; ATTEND Internal Medicine Pulmonary Disease
DX: K72.90 Hepatic failure, unspecified without coma (principal); K74.60 Unspecified cirrhosis of liver; K75.4 Autoimmune hepatitis; E11.9 Type 2 diabetes mellitus without complications; I11.0 Hypertensive heart disease with heart failure; I25.10 Atherosclerotic heart disease of native coronary artery without angina pectoris; I50.9 Heart failure, unspecified; J45.909 Unspecified asthma, uncomplicated; R53.1 Weakness; E03.9 Hypothyroidism, unspecified; E78.5 Hyperlipidemia, unspecified; E78.00 Pure hypercholesterolemia, unspecified; Z95.5 Presence of coronary angioplasty implant and graft; Z79.4 Long term (current) use of insulin